=== PATIENT | female | born 1950 | race Hispanic/Latino ===

== ENCOUNTER 2022-03-19 12:33 | Emergency (ER) | payer OTHER ==
--- OUTSIDE RECORDS SUMMARY | 2022-03-19 12:37 | XMS REPORT | Continuity of Care Document ---
:1950 Author Organization [facility] t Address [facility] Macdonald [address] [place] [id number] Care Team Providers Name Role Phone Delphine Messer Attending Clinician Unavailable Payers Payer Name Policy Type Policy Number Effective Date Expiration Date Abner SHERMAN MEDICARE 53 [id number] 2020 [facility] 00:00:00 [facility] MEDICARE MB [id number] 2014 [facility] NOVITAS 00:00:00 [facility] Problems Condition Condition Condition Status Onset Resolution Last Treating Co mments Source Name Details Category Date Date Treatment Clinician Date [id number] Hyperlipid Problem Co mmon emia, Spirit mixed - [facility] [id number] Anxiety Problem [facility] - [facility] Gastroesop Gastroesop Problem C ommon hageal hageal Spirit reflux reflux - [facility] disease disease [facility] without [facility] esophagiti esophagiti Ar dical [facility] Hyperlipid Hyperlipid Problem C ommon emia emia due Spirit to dietary - [facility] fat intake [facility] [id number] Osteoarthr Problem Co mmon itis of [facility] multiple - [facility] joints, [facility] Medical osteoarthr Center itis type Shoulder Pain in Problem Common joint pain right Spirit shoulder - [facility] Allergic Allergic Problem Commo n rhinitis rhinitis [facility] Candidiasi Candidiasi Problem C ommon s of skin s of skin Spir [facility] [id number] Hyperlipid Problem Co mmon emia due Spirit to dietary [facility] fat intake [facility] Hypothyroi Hypothyroi Problem C ommon dism dism [facility] Essential Benign Problem Common hypertensi essential Spi rit on HTN [facility] Prediabete Prediabete Problem C ommon s s [facility] [id number] Other Problem Common chronic [facility] pain [facility] [id number] Chronic Problem Common fatigue [facility] [id number] History of Problem Co mmon cervical [facility] cancer [facility] Allergies, Adverse Reactions, Alerts This patient has no known allergies or adverse reactions. Social History Social Habit Start Date Stop Date Quantity Comments Source History of Tobacco Use Co mmon [facility] Sex Assigned At Com mon [facility] Smoking Status Start Date Stop Date Source Never Smoker [facility] Medications Ordered Filled Start Stop Current Ordering Indication Dosage Frequency Signature Comments Components Source Medication Medication Date Date Medication? Clinician (SIG) Name Name busPIRone busPIRone No 1{table busPIRone HCl 10 MG HCl 10 MG 6-06 t} HCl 10 MG 00:00: 00 Pravastatin Pravastatin 2020-05 No 1{table QD Pravastati Sodium 20 Sodium 20 1-22 t} n Sodium MG MG 00:00: 20 MG 00 Pravastatin Pravastatin 2020-05 No 1{table QD Pravastati Sodium 20 Sodium 20 1-22 t} n Sodium MG MG 00:00: 20 MG 00 Pravastatin Pravastatin 2020-05 No 1{table QD Pravastati Sodium 20 Sodium 20 1-22 t} n Sodium MG MG 00:00: 20 MG 00 Pravastatin Pravastatin 2020-05 No 1{table QD Pravastati Sodium 20 Sodium 20 1-22 t} n Sodium MG MG 00:00: 20 MG 00 Pravastatin Pravastatin 2020-05 No 1{table QD Pravastati Sodium 20 Sodium 20 1-22 t} n Sodium MG MG 00:00: 20 MG 00 Pravastatin Pravastatin 2020-05 No 1{table QD Pravastati Sodium 20 Sodium 20 -22 t} n Sodium MG MG 00:00: 20 MG 00 Pravastatin Pravastatin 2020- No 1{table QD Pravastati Sodium 20 Sodium 20 -22 t} n Sodium MG MG 00:00: 20 MG 00 Bupivicaine Bupivicaine 0 No 2.5mg [facility] 00:00: - [facility] 00 [facility] Kenalog Kenalog 0 No 40mg Common (Triamcinol (Triamcinol 2-25 S pirit one) one) 00:00: - [facility] 00 [facility] Bupivicaine Bupivicaine 2020-0 No 2.5mg [facility] 00:00: - [facility] 00 [facility] Kenalog Kenalog 0 No 40mg Common (Triamcinol (Triamcinol 2-25 S pirit one) one) 00:00: - [facility]I 00 [facility] Bupivicaine Bupivicaine 2020-0 No 2.5mg [facility]25 Spirit 00:00: - [facility] 00 [facility] Kenalog Kenalog 0 No 40mg Common (Triamcinol (Triamcinol 2-25 S pirit one) one) 00:00: - [facility]I 00 [facility] Bupivicaine Bupivicaine 2020-0 No 2.5mg [facility]25 Spirit 00:00: - [facility] 00 [facility] Kenalog Kenalog 0 No 40mg Common (Triamcinol (Triamcinol 2-25 S pirit one) one) 00:00: - [facility] 00 [facility] Bupivicaine Bupivicaine 2020-0 No 2.5mg [facility]25 Spirit 00:00: - [facility] 00 [facility] Kenalog Kenalog 0 No 40mg Common (Triamcinol (Triamcinol 2-25 S pirit one) one) 00:00: - [facility] 00 [facility] Omeprazole Omeprazole 2019-0 Yes Na Messer 1 capsule Common 3-06 Spirit 00:00: - [facility] 00 [facility] Famotidine Famotidine 2020-0 Yes Na Messer 1 tablet Common 06-22 as needed Spirit 00:00: - [facility] Famotidine Famotidine 2020-0 No 1{table BID Famotidine 40 MG 40 MG -23 t_as_ne 40 MG 00:00: eded} 00 Famotidine Famotidine 2020-0 No 1{table BID Famotidine 40 MG 40 MG -23 t_as_ne 40 MG 00:00: eded} 00 Famotidine Famotidine 2020-0 No 1{table BID Famotidine 40 MG 40 MG -23 t_as_ne 40 MG 00:00: eded} 00 Famotidine Famotidine 2020-0 No 1{table BID Famotidine 40 MG 40 MG - t_as_ne 40 MG 00:00: eded} 00 Famotidine Famotidine 2020-0 No 1{table BID Famotidine 40 MG 40 MG -23 t_as_ne 40 MG 00:00: eded} 00 Famotidine Famotidine 2020-0 No 1{table BID Famotidine 40 MG 40 MG -23 t_as_ne 40 MG 00:00: eded} 00 Famotidine Famotidine 2020-0 No 1{table BID Famotidine 40 MG 40 MG -23 t_as_ne 40 MG 00:00: eded} 00 [place] Kenalog 2018-1 No 40mg Common (Triamcinol (Triamcinol 1-12 S pirit one) one) 00:00: - [facility] Kenalog Kenalog 2018-1 No 40mg Common (Triamcinol (Triamcinol 1-12 S pirit one) one) 00:00: - [facility] Kenalog Kenalog 2018-1 No 40mg Common (Triamcinol (Triamcinol 1-12 S pirit one) one) 00:00: - [facility] Kenalog Kenalog 2018-1 No 40mg Common (Triamcinol (Triamcinol 1-12 S pirit one) one) 00:00: - [facility] Kenalog Kenalog 2018-1 No 40mg Common (Triamcinol (Triamcinol 1-12 S pirit one) one) 00:00: - [facility] 00 [facility] Lisinopril Lisinopril Yes Na Messer 1 tablet Common [facility] Flonase Flonase Yes Na Messer 1 spray in Common each [facility] nostril [facility] Zyrtec Zyrtec Yes Na Messer 1 tablet Comm on Allergy Allergy [facility] Naproxen Naproxen Yes Na Messer TAKE 1 Co mmon TABLET BY [facility] EVERY [address] [facility] NEEDED Medical WITH FOOD Center OR MILK Levothyroxi Levothyroxi Yes Na Messer 1 tablet Common ne Sodium ne Sodium on an Spir it empty - [facility]I stomach in [facility] Verapamil Verapamil Yes Na Messer 1 tablet Common HCl ER HCl ER [facility] Carvedilol Carvedilol Yes Na Messer 1 tablet Common with food [facility] Omeprazole Omeprazole No 1{capsu QD Omeprazole 40 MG 40 MG le} 40 MG Naproxen Naproxen No BID Naproxen 500 MG 500 MG 500 MG Verapamil Verapamil No 1{table Verapamil HCl ER 120 HCl ER 120 t} HCl ER 120 MG MG MG Levothyroxi Levothyroxi No QD Levothyrox ne Sodium ne Sodium ine Sodium 100 MCG 100 MCG 100 MCG Lisinopril Lisinopril No Lisinopril 40 MG 40 MG 40 MG Carvedilol Carvedilol No 1{table BID Carvedilol 12.5 MG 12.5 MG t_with_ 12.5 MG food} Verapamil Verapamil No 1{table Verapamil HCl ER 120 HCl ER 120 t} HCl ER 120 MG MG MG EQ Allergy EQ Allergy No EQ Allergy Relief Relief Relief (Cetirizine (Cetirizine (Cetirizin ) 10 MG ) 10 MG e) 10 MG Carvedilol Carvedilol No Carvedilol 12.5 MG 12.5 MG 12.5 MG ZyrTEC ZyrTEC No 1{table QD ZyrTEC Allergy 10 Allergy 10 t} Allergy 10 MG MG MG Levothyroxi Levothyroxi No QD Levothyrox ne Sodium ne Sodium ine Sodium 100 MCG 100 MCG 100 MCG Rosuvastati Rosuvastati No 1{table Rosuvastat n Calcium 5 n Calcium 5 t} in Calcium MG MG 5 MG Omeprazole Omeprazole No Omeprazole 40 MG 40 MG 40 MG Euthyrox Euthyrox No Euthyrox 100 MCG 100 MCG 100 MCG Lisinopril Lisinopril No 1{table QD Lisinopril 40 MG 40 MG t} 40 MG EC-Naproxen EC-Naproxen No EC-Naproxe 500 MG 500 MG n 500 MG Flonase 50 Flonase 50 No 2{spray QD Flonase 50 MCG/ACT MCG/ACT _in_eac MCG/ACT h_nostr il} Naproxen Naproxen No BID Naproxen 500 MG 500 MG 500 MG Cetirizine Cetirizine No Cetirizine HCl HCl HCl EC-Naproxen EC-Naproxen No EC-Naproxe 500 MG 500 MG n 500 MG Carvedilol Carvedilol No 1{table BID Carvedilol 12.5 MG 12.5 MG t_with_ 12.5 MG food} Omeprazole Omeprazole No Omeprazole 40 MG 40 MG 40 MG Verapamil Verapamil No 1{table Verapamil HCl ER 120 HCl ER 120 t} HCl ER 120 MG MG MG Flonase 50 Flonase 50 No 2{spray QD Flonase 50 MCG/ACT MCG/ACT _in_eac MCG/ACT h_nostr il} Carvedilol Carvedilol No Carvedilol 12.5 MG 12.5 MG 12.5 MG Levothyroxi Levothyroxi No QD Levothyrox ne Sodium ne Sodium ine Sodium 100 MCG 100 MCG 100 MCG Rosuvastati Rosuvastati No 1{table Rosuvastat n Calcium 5 n Calcium 5 t} in Calcium MG MG 5 MG Naproxen Naproxen No BID Naproxen 500 MG 500 MG 500 MG Lisinopril Lisinopril No Lisinopril 40 MG 40 MG 40 MG Cetirizine Cetirizine No 1{table Cetirizine HCl 10 MG HCl 10 MG t} HCl 10 MG Euthyrox Euthyrox No Euthyrox 100 MCG 100 MCG 100 MCG ZyrTEC ZyrTEC No 1{table QD ZyrTEC Allergy 10 Allergy 10 t} Allergy 10 MG MG MG Lisinopril Lisinopril No 1{table QD Lisinopril 40 MG 40 MG t} 40 MG EQ Allergy EQ Allergy No EQ Allergy Relief Relief Relief (Cetirizine (Cetirizine (Cetirizin ) 10 MG ) 10 MG e) 10 MG Lisinopril Lisinopril No 1{table QD Lisinopril 40 MG 40 MG t} 40 MG Carvedilol Carvedilol No 1{table BID Carvedilol 12.5 MG 12.5 MG t_with_ 12.5 MG food} Flonase 50 Flonase 50 No 2{spray QD Flonase 50 MCG/ACT MCG/ACT _in_eac MCG/ACT h_nostr il} Carvedilol Carvedilol No Carvedilol 12.5 MG 12.5 MG 12.5 MG Verapamil Verapamil No 1{table Verapamil HCl ER 120 HCl ER 120 t} HCl ER 120 MG MG MG ZyrTEC ZyrTEC No 1{table QD ZyrTEC Allergy 10 Allergy 10 t} Allergy 10 MG MG MG Levothyroxi Levothyroxi No QD Levothyrox ne Sodium ne Sodium ine Sodium 100 MCG 100 MCG 100 MCG Rosuvastati Rosuvastati No 1{table Rosuvastat n Calcium 5 n Calcium 5 t} in Calcium MG MG 5 MG Omeprazole Omeprazole No Omeprazole 40 MG 40 MG 40 MG Lisinopril Lisinopril No Lisinopril 40 MG 40 MG 40 MG Cetirizine Cetirizine No 1{table Cetirizine HCl 10 MG HCl 10 MG t} HCl 10 MG Euthyrox Euthyrox No Euthyrox 100 MCG 100 MCG 100 MCG EC-Naproxen EC-Naproxen No EC-Naproxe 500 MG 500 MG n 500 MG Naproxen Naproxen No BID Naproxen 500 MG 500 MG 500 MG EQ Allergy EQ Allergy No EQ Allergy Relief Relief Relief (Cetirizine (Cetirizine (Cetirizin ) 10 MG ) 10 MG e) 10 MG Carvedilol Carvedilol No Carvedilol 12.5 MG 12.5 MG 12.5 MG Pravastatin Pravastatin No 1{table QD Pravastati Sodium 40 Sodium 40 t} n Sodium MG MG 40 MG EC-Naproxen EC-Naproxen No EC-Naproxe 500 MG 500 MG n 500 MG Lisinopril Lisinopril No 1{table QD Lisinopril 40 MG 40 MG t} 40 MG Euthyrox Euthyrox No Euthyrox 100 MCG 100 MCG 100 MCG Flonase 50 Flonase 50 No 2{spray QD Flonase 50 MCG/ACT MCG/ACT _in_eac MCG/ACT h_nostr il} Naproxen Naproxen No BID Naproxen 500 MG 500 MG 500 MG ZyrTEC ZyrTEC No 1{table QD ZyrTEC Allergy 10 Allergy 10 t} Allergy 10 MG MG MG Carvedilol Carvedilol No 1{table BID Carvedilol 12.5 MG 12.5 MG t_with_ 12.5 MG food} Lisinopril Lisinopril No Lisinopril 40 MG 40 MG 40 MG Levothyroxi Levothyroxi No QD Levothyrox ne Sodium ne Sodium ine Sodium 100 MCG 100 MCG 100 MCG Omeprazole Omeprazole No Omeprazole 40 MG 40 MG 40 MG EQ Allergy EQ Allergy No EQ Allergy Relief Relief Relief (Cetirizine (Cetirizine (Cetirizin ) 10 MG ) 10 MG e) 10 MG Verapamil Verapamil No 1{table Verapamil HCl ER 120 HCl ER 120 t} HCl ER 120 MG MG MG Cetirizine Cetirizine No 1{table Cetirizine HCl 10 MG HCl 10 MG t} HCl 10 MG Carvedilol Carvedilol No Carvedilol 12.5 MG 12.5 MG 12.5 MG Carvedilol Carvedilol No 1{table BID Carvedilol 12.5 MG 12.5 MG t_with_ 12.5 MG food} Cetirizine Cetirizine No 1{table Cetirizine HCl 10 MG HCl 10 MG t} HCl 10 MG Flonase 50 Flonase 50 No 2{spray QD Flonase 50 MCG/ACT MCG/ACT _in_eac MCG/ACT h_nostr il} Verapamil Verapamil No 1{table Verapamil HCl ER 120 HCl ER 120 t} HCl ER 120 MG MG MG EC-Naproxen EC-Naproxen No EC-Naproxe 500 MG 500 MG n 500 MG Pravastatin Pravastatin No 1{table QD Pravastati Sodium 40 Sodium 40 t} n Sodium MG MG 40 MG Lisinopril Lisinopril No 1{table QD Lisinopril 40 MG 40 MG t} 40 MG Verapamil Verapamil No Verapamil HCl ER 120 HCl ER 120 HCl ER 120 MG MG MG EQ Allergy EQ Allergy No EQ Allergy Relief Relief Relief (Cetirizine (Cetirizine (Cetirizin ) 10 MG ) 10 MG e) 10 MG busPIRone busPIRone No 1{table busPIRone HCl 10 MG HCl 10 MG t} HCl 10 MG Lisinopril Lisinopril No Lisinopril 40 MG 40 MG 40 MG Levothyroxi Levothyroxi No QD Levothyrox ne Sodium ne Sodium ine Sodium 100 MCG 100 MCG 100 MCG ZyrTEC ZyrTEC No 1{table QD ZyrTEC Allergy 10 Allergy 10 t} Allergy 10 MG MG MG Omeprazole Omeprazole No Omeprazole 40 MG 40 MG 40 MG Euthyrox Euthyrox No Euthyrox 100 MCG 100 MCG 100 MCG Naproxen Naproxen No BID Naproxen 500 MG 500 MG 500 MG Carvedilol Carvedilol No Carvedilol 12.5 MG 12.5 MG 12.5 MG Carvedilol Carvedilol No 1{table BID Carvedilol 12.5 MG 12.5 MG t_with_ 12.5 MG food} Cetirizine Cetirizine No 1{table Cetirizine HCl 10 MG HCl 10 MG t} HCl 10 MG Flonase 50 Flonase 50 No 2{spray QD Flonase 50 MCG/ACT MCG/ACT _in_eac MCG/ACT h_nostr il} Verapamil Verapamil No 1{table Verapamil HCl ER 120 HCl ER 120 t} HCl ER 120 MG MG MG EC-Naproxen EC-Naproxen No EC-Naproxe 500 MG 500 MG n 500 MG Pravastatin Pravastatin No 1{table QD Pravastati Sodium 40 Sodium 40 t} n Sodium MG MG 40 MG Lisinopril Lisinopril No 1{table QD Lisinopril 40 MG 40 MG t} 40 MG Verapamil Verapamil No Verapamil HCl ER 120 HCl ER 120 HCl ER 120 MG MG MG EQ Allergy EQ Allergy No EQ Allergy Relief Relief Relief (Cetirizine (Cetirizine (Cetirizin ) 10 MG ) 10 MG e) 10 MG busPIRone busPIRone No 1{table busPIRone HCl 10 MG HCl 10 MG t} HCl 10 MG Lisinopril Lisinopril No Lisinopril 40 MG 40 MG 40 MG Levothyroxi Levothyroxi No QD Levothyrox ne Sodium ne Sodium ine Sodium 100 MCG 100 MCG 100 MCG ZyrTEC ZyrTEC No 1{table QD ZyrTEC Allergy 10 Allergy 10 t} Allergy 10 MG MG MG Omeprazole Omeprazole No Omeprazole 40 MG 40 MG 40 MG Euthyrox Euthyrox No Euthyrox 100 MCG 100 MCG 100 MCG Naproxen Naproxen No BID Naproxen 500 MG 500 MG 500 MG Flonase 50 Flonase 50 No 2{spray QD Flonase 50 MCG/ACT MCG/ACT _in_eac MCG/ACT h_nostr il} ZyrTEC ZyrTEC No 1{table QD ZyrTEC Allergy 10 Allergy 10 t} Allergy 10 MG MG MG Carvedilol Carvedilol No Carvedilol 12.5 MG 12.5 MG 12.5 MG Carvedilol Carvedilol No 1{table BID Carvedilol 12.5 MG 12.5 MG t_with_ 12.5 MG food} Cetirizine Cetirizine No Cetirizine HCl HCl HCl Lisinopril Lisinopril No Lisinopril 40 MG 40 MG 40 MG EC-Naproxen EC-Naproxen No EC-Naproxe 500 MG 500 MG n 500 MG Immunizations Ordered Immunization Filled Immunization Date Status Commen ts Source Name Name Prevnar 13 Prevnar 13 2017-07-27 Completed [facility] -[facility] Vaccine -Pneumonia Vaccine 12:43:00 - [facility] Prevnar 13 Prevnar 13 2017-07-27 Completed [facility] -Pneumonia Vaccine -Pneumonia Vaccine 12:43:00 - [facility] Prevnar 13 Prevnar 13 2017-07-27 Completed [facility] -Pneumonia Vaccine -Pneumonia Vaccine 12:43:00 - [facility] Prevnar 13 Prevnar 13 2017-07-27 Completed [facility] -Pneumonia Vaccine -Pneumonia Vaccine 12:43:00 - [facility] Prevnar 13 Prevnar 13 2017-07-27 Completed [facility] -Pneumonia Vaccine -Pneumonia Vaccine 12:43:00 - [facility] Prevnar 13 Prevnar 13 2017-07-27 Completed [facility] -Pneumonia Vaccine -Pneumonia Vaccine 12:43:00 - [facility] Prevnar 13 Prevnar 13 2017-07-27 Completed [facility] -Pneumonia Vaccine -Pneumonia Vaccine 12:43:00 [facility] Procedures This patient has no known procedures. Encounters Start End Encounter Admission Attending Care Care Encounter Source Date/Time Date/Time Type Type Clinicians Facility Department ID 2021-10-30 Outpatient Messer, Na STLMLC STLMLC [id number] 2 Common 15:29:00 [facility] 2021-06-25 Outpatient Messer, Na STLMLC STLMLC [id number] 2 Common 14:39:16 [facility] 2021-06-25 Outpatient Messer, Na STLMLC STLMLC [id number] 2 Common 13:26:23 [id number] [facility] 2021-06-25 Outpatient Messer, Na STLMLC STLMLC [id number] 2 Common 12:46:19 [id number] [facility] 2021-06-25 Outpatient Messer, Na STLMLC STLMLC [id number] 2 Common 12:45:14 [id number] [facility] 2021-06-25 Outpatient Messer, Na STLMLC STLMLC [id number] 2 Common 12:44:48 [id number] [facility] 2021-06-25 Outpatient Messer, Na STLMLC STLMLC [id number] 2 Common 12:42:24 [id number] [facility] 2021-06-25 Outpatient Messer, Na STLMLC STLMLC [id number] 2 Common 12:33:38 [id number] [facility] 2021-06-25 Outpatient Messer, Na STLMLC STLMLC [id number] 2 Common 12:32:40 [id number] [facility] 2021-06-25 Outpatient Messer, Na STLMLC STLMLC [id number] 2 Common 12:32:07 [id number] [facility] 2021-06-25 Outpatient Messer, Na STLMLC STLMLC [id number] 2 Common 12:25:42 [id number] [facility] 2021-06-25 Outpatient Messer, Na STLMLC STLMLC [id number] 2 Common 12:11:27 [id number] [facility] 2021-06-25 Outpatient Messer, Na STLMLC STLMLC [id number] 2 Common 11:50:19 [id number] [facility] 2021-06-25 Outpatient Messer, Na STLMLC STLMLC [id number] 2 Common 11:49:34 [id number] [facility] 2021-06-25 Outpatient Messer, Na STLMLC STLMLC [id number] 2 Common 11:49:06 [id number] [facility] 2021-06-25 Outpatient Messer, Na STLMLC STLMLC [id number] 2 Common 11:12:13 [id number] [facility] 2021-06-25 Outpatient Messer, Na STLMLC STLMLC [id number] 2 Common 11:02:24 [id number] [facility] 2021-06-25 Outpatient Messer, Na STLMLC STLMLC [id number] 2 Common 11:01:59 [id number] [facility] 2022-02-05 2022-02-05 OL DIG E/M STLMLC STLMLC [id number] Common 00:00:00 00:00:00 [facility] 11-20 Spir it [facility] 2021-11-03 2021-11-03 OL DIG E/M STLMLC STLMLC [id number] Common 00:00:00 00:00:00 [facility] [place] 11-20 Spir it [facility] 2021-10-13 2021-10-13 (TEL) STLMLC STLMLC [id number] Co mmon 00:00:00 00:00:00 [facility] 2021-09-30 2021-09-30 (TEL) STLMLC STLMLC [id number] Co mmon 00:00:00 00:00:00 [facility] 2021-07-16 2021-07-16 (TEL) STLMLC STLMLC [id number] Co mmon 00:00:00 00:00:00 [facility] 2021-04-21 2021-04-21 (TEL) STLMLC STLMLC [id number] Co mmon 00:00:00 00:00:00 [facility] 2020-12-18 2020-12-18 Outpatient STLMLC STLMLC [id number] Common 00:00:00 00:00:00 [facility] 2020-12-05 2020-12-05 Outpatient STLMLC STLMLC [id number] Common 00:00:00 00:00:00 [facility] 2020-08-26 2020-08-26 Outpatient STLMLC STLMLC [id number] Common 00:00:00 00:00:00 [facility] 2020-07-25 2020-07-25 Outpatient STLMLC STLMLC [id number] Common 00:00:00 00:00:00 [facility] 2020-07-19 2020-07-19 Outpatient STLMLC STLMLC [id number] Common 00:00:00 00:00:00 [facility] 2020-06-25 2020-06-25 Outpatient STLMLC STLMLC [id number] Common 00:00:00 00:00:00 [facility] 2020-02-28 2020-02-28 Outpatient STLMLC STLMLC [id number] Common 00:00:00 00:00:00 [facility] 2020-02-27 2020-02-27 Outpatient STLMLC STLMLC [id number] Common 00:00:00 00:00:00 [facility] 2019-11-06 2019-11-06 [id number] Common 08:40:00 08:40:[address] [facility] 2019-08-04 2019-08-04 [facility] [id number] Common 10:00:00 10:00:[address] [facility] 2019-08-04 2019-08-04 [facility] [id number] Common 09:00:00 09:00:[address] [facility] 2019-06-23 2019-06-23 [facility] [id number] Common 10:59:00 10:59:[address] [facility] 2019-06-22 2019-06-22 [facility] [id number] Common 13:20:00 13:20:[address] [facility] 2018-12-19 2018-12-19 [facility] [id number] Common 08:03:00 08:03:[address] [facility] 2018-12-05 2018-12-05 [facility] [id number] Common 08:00:00 08:00:[address] [facility] 2018-08-10 2018-08-10 [facility] [id number] Common 10:15:00 10:15:[address] [facility] 2018-04-11 2018-04-11 [facility] [id number] Common 11:00:00 11:00:[address] [facility] 2017-10-26 2017-10-26 [facility] [id number] Common 09:15:00 09:15:[address] [facility] Results This patient has no known results.
[2022-03-19] MEDS ORDERED: KETOROLAC 30 MG/ML INJ ONE (13:07)
--- NOTE | 2022-03-19 13:43 | RAD REPORT ---
EXAM DESCRIPTION: Geraldine Single View03/19/2022 1:31 pm CLINICAL HISTORY: Cough COMPARISON: none FINDINGS: The lungs appear clear of acute infiltrate. The heart is normal size IMPRESSION: No acute abnormalities displayed
--- NOTE | 2022-03-19 13:47 | RAD REPORT ---
EXAM DESCRIPTION: CT - Head Brain Wo Cont - 03/19/2022 1:19 pm CLINICAL HISTORY: Headache COMPARISON: None. TECHNIQUE: Computed axial tomography of the head was obtained. IV contrast was not requested. All CT scans are performed using dose optimization technique as appropriate and may include automated exposure control or mA/KV adjustment according to patient size. FINDINGS: An intracranial bleed is not seen . The ventricles are normal in caliber. No significant hypodense areas within the brain visualized No extra-axial fluid collection is noted. Fluid within the sinuses/ mastoids is not seen. IMPRESSION: No acute intracranial abnormality is seen. If patient's symptoms persist MRI of the bra in would be recommended.
[2022-03-19 14:20] LABS: Absolute Lymphocytes (CBC) 3.4 K/uL (0.7-4.9); Hematocrit 41.5 % (36.0-45.0); Lymphocytes % 35.2 % (15.3-44.8); MCV 89.2 fL (80-100); MPV 7.9 fL (7.6-11.3); RBC Red Blood Cell Count 4.65 M/uL (3.86-4.86)
[2022-03-19 15:09] LABS: Potassium 4.1 mmol/L (3.5-5.1)
[2022-03-19 15:11] LABS: SARS-CoV-2 Antigen Rapid Res Negative (Negative)
--- NOTE | 2022-03-19 15:16 | ER ---
Nurse's Notes [facility] Name: Ismael Weinberg Age: 71 yrs Sex: Female : 1950 Arrival Date: 03/19/2022 Time: 12:41 Bed 11 Private MD: Delphine Messer Diagnosis: Acute upper respiratory infection, unspecified Presentation: 03/19 12:44 Chief complaint: Left sided headache + photosensitivity x 3 hours, cough, congestion, hb and runny nose x 5 days. Coronavirus screen: Client presents with at least one sign or symptom that may indicate coronavirus-19. Standard/surgical mask placed on the client. Provider contacted for isolation considerations. Ebola Screen: No symptoms or risks identified at this time. Risk Assessment: Do you want to hurt yourself or someone else? Patient reports no desire to harm self or others. Onset of symptoms was March 19, 2022. 12:44 Method Of Arrival: Ambulatory hb 12:44 Acuity: JEROME 3 hb 15:51 Initial Sepsis Screen: Does the patient meet any 2 criteria? No. Patient's initial eh3 sepsis screen is negative. Does the patient have a suspected source of infection? No. Patient's initial sepsis screen is negative. Triage Assessment: 15:51 General: Appears. Pain: Also complains of no other associated symptoms. eh3 15:51 Headache History: The patient has had previous headaches and this one is similar to eh3 previous episodes. Historical: - Allergies: 12:47 No Known Allergies; hb - PMHx: 12:47 Hypertension; hb - Immunization history:: Adult Immunizations up to date. - Social history:: Smoking status: Patient denies any tobacco usage or history of. Screenin:57 Abuse screen: Denies threats or abuse. Denies injuries from another. Nutritional eh3 screening: No deficits noted. Tuberculosis screening: No symptoms or risk factors identified. Fall Risk None identified. Assessment: 12:57 General: Appears in no apparent distress. uncomfortable, Behavior is calm, cooperative, eh3 appropriate for age. Pain: Complains of pain in left yazidi, left frontal area and left side of the back of head Pain does not radiate. Pain currently is 7 out of 10 on a pain scale. Quality of pain is described as burning, sharp, Pain began 2-3 days ago. Is intermittent, Alleviated by nothing. Neuro: Level of Consciousness is awake, alert, obeys commands, Oriented to person, place, time, situation. Cardiovascular: Capillary refill < 3 seconds Patient's skin is warm and dry. Respiratory: Reports cough that is non-productive, pain with cough Airway is patent Respiratory effort is even, unlabored. GI:. EENT: Reports nasal discharge photophobia. 14:00 Reassessment: Patient and/or family updated on plan of care and expected duration. Pain eh3 level reassessed. Patient is alert, oriented x 3, equal unlabored respirations, skin warm/dry/pink. 15:00 Reassessment: Patient and/or family updated on plan of care and expected duration. Pain eh3 level reassessed. Patient is alert, oriented x 3, equal unlabored respirations, skin warm/dry/pink. Vital Signs: 12:44 BP 166 / 94; Pulse 72; Resp 16; Temp 97.1; Pulse Ox 100% on R/A; Weight 86.18 kg; hb Height 5 ft. 6 in. (167.64 cm); Pain 8/10; 12:57 BP 172 / 70; Pulse 71; Resp 16; Temp 97.1(O); Pulse Ox 96% on R/A; eh3 14:00 BP 138 / 64; Pulse 61; Resp 16; Pulse Ox 95% on R/A; eh3 15:00 BP 153 / 79; Pulse 81; Resp 16; Pulse Ox 100% on R/A; eh3 12:44 Body Mass Index 30.67 (86.18 kg, 167.64 cm) NIH Stroke Scale Scores: 12:45 NIHSS Score: [address] [facility] ED Course: 12:41 Patient arrived in ED. am2 12:41 Delphine Messer MD is Private Physician. am2 12:46 Triage completed. hb 12:47 Arm band placed on. hb 12:48 Daysi Kaplan FNP is [facility] 7 12:48 Robbie Jimenez MD is Attending Physician. [facility] 12:50 Melania Flowers, GARRISON is Primary Nurse. eh3 12:57 Patient has correct armband on for positive identification. Bed in low position. Call 3 light in reach. Side rails up X2. Client placed on continuous cardiac and pulse oximetry monitoring. NIBP monitoring applied. Door closed. Noise minimized. Warm blanket given. 13:21 Head Brain Wo Cont In Process Unspecified. EDMS 13:33 XRAY Chest (1 view) In Process Unspecified. EDMS 14:02 SARS RAPID Sent. eh3 14:02 Flu Sent. eh3 15:14 Delphine Messer MD is Referral Physician. [facility] 15:50 No provider procedures requiring assistance completed. IV discontinued, intact, 3 bleeding controlled, No redness/swelling at site. Pressure dressing applied. Administered Medications: 14:02 Drug: Ketorolac 15 mg Route: IVP; Site: left antecubital; 3 15:50 Follow up: Response: Pain is decreased 3 Medication: 15:51 VIS not applicable for this client. 3 Outcome: 15:15 Discharge ordered by . [facility] 15:50 Discharged to home ambulatory, with family. 3 15:50 Condition: stable 15:50 Discharge instructions given to patient, family, Instructed on discharge instructions, follow up and referral plans. medication usage, Demonstrated understanding of instructions, follow-up care, medications, Prescriptions given X 1. 15:52 Patient left the ED. 3 NIH Stroke Scale - NIH Stroke Score Date: 03/19/2022 Time: 12:45 Total Score = 0 1a. Level of Consciousness (LOC) - 0(Alert) 1b. Level of Consciousness (LOC) (Month \T\ Age) - 0(Both) 1c. LOC Commands (Open \T\ Closes Eyes/Clamshell Operator) - 0(Both) 2. Best Gaze (Lateral Gaze Paresis) - 0(Normal) 3. Visual Field Loss - 0(No visual loss) 4. Facial Palsy - 0(Normal) 5a. Left Arm: Motor (10-second hold) - 0(No drift) 5b. Right Arm: Motor (10-second hold) - 0(No drift) 6a. Left Leg: Motor (5-second hold - always test supine) - 0(No drift) 6b. Right Leg: Motor (5-second hold - always test supine) - 0(No drift) 7. Limb Ataxia (finger/nose \T\ heel/krishnamurthy - test with eyes open) - 0(Absent) 8. Sensory Loss (pinprick arms/legs/face) - 0(Normal) 9. Best Language: Aphasia (description/naming/reading) - 0(No aphasia) 10. Dysarthria (speech clarity - read or repeat words) - 0(Normal) 11. Extinction and Inattention (visual/tactile/auditory/spatial/personal) - 0(No abnormality) Initials: jh7 Signatures: Dispatcher [employer] Shima Valle, RN RN Chelo Landeros am2 Melania Flowers, RN RN 3 Daysi Kaplan, SOAP PRESS FEEDER SOAP PRESS FEEDER 7
--- NOTE | 2022-03-19 15:16 | EDPHYS ---
Physician Documentation [facility] Name: Ismael Weinberg Age: 71 yrs Sex: Female : 1950 Arrival Date: 03/19/2022 Time: 12:41 Bed 11 Private MD: Delphine Messer ED Physician Robbie Jimenez HPI: 03/19 12:45 This 71 yrs old Female presents to ER via Ambulatory with complaints of jh7 Headache. 12:45 The patient complains of pain to the left side of the back of head and right side of jh7 the back of head. The patient describes the headache as aching, waxing and waning. Onset: The symptoms/episode began/occurred 1 month(s) ago. Patient reports that 1 month ago she tripped in a hole, and hit her head. Denies LOC. She reports intermittent headaches with mild photosensitivity today. Also reports that 4 days ago she developed a cough with congestion. Denies chest pain, shortness of breath, dizziness, weakness, or any other symptoms.. Historical: - Allergies: 12:47 No Known Allergies; hb - PMHx: 12:47 Hypertension; hb - Immunization history:: Adult Immunizations up to date. - Social history:: Smoking status: Patient denies any tobacco usage or history of. ROS: 12:45 Constitutional: Negative for fever, chills, and weight loss, Eyes: Negative for injury, jh7 pain, redness, and discharge, Neck: Negative for injury, pain, and swelling, Cardiovascular: Negative for chest pain, palpitations, and edema, Abdomen/GI: Negative for abdominal pain, nausea, vomiting, diarrhea, and constipation, Back: Negative for injury and pain, MS/Extremity: Negative for injury and deformity, Skin: Negative for injury, rash, and discoloration. 12:45 ENT: Positive for sinus congestion. 12:45 Respiratory: Positive for cough, Negative for shortness of breath, wheezing. 12:45 Neuro: Positive for headache, Negative for altered mental status, dizziness, loss of consciousness, numbness, syncope, tingling, weakness. 12:45 All other systems are negative. Exam: 12:45 Constitutional: This is a well developed, well nourished patient who is awake, alert, jh7 and in no acute distress. Head/Face: Normocephalic, atraumatic. Eyes: Pupils equal round and reactive to light, extra-ocular motions intact. Lids and lashes normal. Conjunctiva and sclera are non-icteric and not injected. Cornea within normal limits. Periorbital areas with no swelling, redness, or edema. Cardiovascular: Regular rate and rhythm with a normal S1 and S2. No gallops, murmurs, or rubs. Normal PMI, no JVD. No pulse deficits. Respiratory: Lungs have equal breath sounds bilaterally, clear to auscultation and percussion. No rales, rhonchi or wheezes noted. No increased work of breathing, no retractions or nasal flaring. Abdomen/GI: Soft, non-tender, with normal bowel sounds. No distension or tympany. No guarding or rebound. No evidence of tenderness throughout. Back: No spinal tenderness. No costovertebral tenderness. Full range of motion. Skin: Warm, dry with normal turgor. Normal color with no rashes, no lesions, and no evidence of cellulitis. MS/ Extremity: Pulses equal, no cyanosis. Neurovascular intact. Full, normal range of motion. Neuro: Awake and alert, GCS 15, oriented to person, place, time, and situation. Cranial nerves II-XII grossly intact. Motor strength 5/5 in all extremities. Sensory grossly intact. Cerebellar exam normal. Normal gait. 12:45 ENT: TM's: are normal, Posterior pharynx: post nasal drainage. 12:45 ENT: Nose: nasal drainage, that is clear. Vital Signs: 12:44 BP 166 / 94; Pulse 72; Resp 16; Temp 97.1; Pulse Ox 100% on R/A; Weight 86.18 kg; hb Height 5 ft. 6 in. (167.64 cm); Pain 8/10; 12:57 BP 172 / 70; Pulse 71; Resp 16; Temp 97.1(O); Pulse Ox 96% on R/A; eh3 14:00 BP 138 / 64; Pulse 61; Resp 16; Pulse Ox 95% on R/A; eh3 15:00 BP 153 / 79; Pulse 81; Resp 16; Pulse Ox 100% on R/A; eh3 12:44 Body Mass Index 30.67 (86.18 kg, 167.64 cm) hb NIH Stroke Scale Scores: 12:45 NIHSS Score: 0 [facility] MDM: 12:48 Patient medically screened. [facility] 15:19 Differential diagnosis: migraine, subdural hematoma, Upper respiratory infection, [facility] influenza, COVID. Data reviewed: vital signs, nurses notes, lab test result(s), EKG, radiologic studies, CT scan, plain films. Data interpreted: Pulse oximetry: is 95 %. Interpretation: normal. Counseling: I had a detailed discussion with the patient and/or guardian regarding: the historical points, exam findings, and any diagnostic results supporting the discharge/admit diagnosis, to return to the emergency department if symptoms worsen or persist or if there are any questions or concerns that arise at home. ED course: The patient remained hemodynamically stable throughout her ER visit. Her labs and imaging were reviewed with both the patient and her daughter. Advised for her to take Flonase [id number] and Mucinex. Prescribed Tessalon for the cough. If she develops any new concerning symptoms, she may return to the ER for further eval. The patient and daughter understood the plan of care.. 03/19 12:57 Order name: Basic Metabolic Panel; Complete Time: 15:11 [facility] 03/19 12:57 Order name: CBC with Diff; Complete Time: 14:27 [facility] 03/19 12:57 Order name: XRAY Chest (1 view); Complete Time: 14:08 [facility] 03/19 12:57 Order name: Flu; Complete Time: 15:13 [facility] 03/19 12:57 Order name: CT Head Brain wo Cont [facility] 03/19 12:58 Order name: SARS RAPID; Complete Time: 15:13 [facility] 03/19 12:57 Order name: Cardiac monitoring; Complete Time: 14:02 [facility] 03/19 12:57 Order name: EKG - Nurse/Tech; Complete Time: 14:02 [facility] 03/19 12:57 Order name: IV Saline Lock; Complete Time: 14:02 [facility] 03/19 12:57 Order name: Labs collected and sent; Complete Time: 14:02 [facility] 03/19 12:57 Order name: O2 Per Protocol; Complete Time: 13:02 [facility] 03/19 12:57 Order name: O2 Sat Monitoring; Complete Time: 13:02 [facility] 03/19 13:05 Order name: Head Brain Wo Cont; Complete Time: 14:08 [facility] 03/19 14:26 Order name: Labs - recollect needed: recollect green top; Complete Time: 14:38 ss EC:47 Rate is 65 beats/min. Rhythm is regular. QRS [place] is Normal. SC interval is normal at [facility] 108 msec. QRS interval is normal at 80 msec. QT interval is normal at 416 msec. No Q waves. T waves are Normal. No ST changes noted. Clinical impression: Sinus Rhythm with short SC. Administered Medications: 14:02 Drug: Ketorolac 15 mg Route: IVP; Site: left antecubital; eh3 15:50 Follow up: Response: Pain is decreased [facility] Disposition Summary: 03/19/22 15:15 Discharge Ordered Location: Home [facility] Problem: new [facility] Symptoms: have improved [facility] Condition: Stable [facility] Diagnosis - Acute upper respiratory infection, unspecified [facility] Followup: [facility] - With: Delphine Messer MD - When: 2 - 3 days - Reason: Recheck today's complaints Discharge Instructions: - Discharge Summary Sheet [facility] - Upper Respiratory Infection, Adult [facility] - Viral Respiratory Infection [facility] Forms: - Medication Reconciliation Form [facility] - Thank You Letter [facility] - Antibiotic Education [facility] Prescriptions: - Tessalon Perles 100 mg Oral Capsule - take 1 capsule by ORAL route every 8 hours As needed; 15 capsule; Refills: 0, [facility] Product Selection Permitted NIH Stroke Scale - NIH Stroke Score Date: 03/19/2022 Time: 12:45 Total Score = 0 1a. Level of Consciousness (LOC) - 0(Alert) 1b. Level of Consciousness (LOC) (Month \T\ Age) - 0(Both) 1c. LOC Commands (Open \T\ Closes Eyes/Curtain Supervisor) - 0(Both) 2. Best Gaze (Lateral Gaze Paresis) - 0(Normal) 3. Visual Field Loss - 0(No visual loss) 4. Facial Palsy - 0(Normal) 5a. Left Arm: Motor (10-second hold) - 0(No drift) 5b. Right Arm: Motor (10-second hold) - 0(No drift) 6a. Left Leg: Motor (5-second hold - always test supine) - 0(No drift) 6b. Right Leg: Motor (5-second hold - always test supine) - 0(No drift) 7. Limb Ataxia (finger/nose \T\ heel/krishnamurthy - test with eyes open) - 0(Absent) 8. Sensory Loss (pinprick arms/legs/face) - 0(Normal) 9. Best Language: Aphasia (description/naming/reading) - 0(No aphasia) 10. Dysarthria (speech clarity - read or repeat words) - 0(Normal) 11. Extinction and Inattention (visual/tactile/auditory/spatial/personal) - 0(No abnormality) Initials: jh7 Addendum: 03/24/2022 03:59 Co-signature as Attending Physician, Robbie Jimenez MD I agree with the [facility] assessment and plan of care. Signatures: Dispatcher [employer] EDRobbie Alcazar MD MD [facility] Stephanie Castillo RN RN Shima Rahman RN RN Melania Flowers RN RN [facility] Daysi Kaplan, MEAT COUNTER WORKER [place] [id number] Corrections: (The following items were deleted from the chart) 03/19 13:02 13:01 SARS-COV-2 Antigen Rapid+I.LAB.BRZ ordered. EDMS EDMS 14:26 14:26 Labs - recollect needed ordered. ss ss
[2022-03-19 15:59] VITALS: TEMP 97.1
[2022-03-19 16:03] VITALS: BP 153/79; O2SAT 100
--- NOTE | 2022-03-21 16:58 | EKG ---
Test Date: 2022-03-19 Test Time: 13:47:22 Public Service Director: OLY MEASUREMENT RESULTS: Intervals: Rate: 65 WI: 108 QRSD: 80 QT: 416 QTc: 432 [place]: P: 13 WI: 108 QRS: 62 T: 80 INTERPRETIVE STATEMENTS: Sinus rhythm with short [place] Low voltage QRS Borderline ECG No previous ECG available for comparison Electronically Signed On 03-21-22 16:54:28 CDT by Patrick Ford
== END 2022-03-19 15:52 | disposition home or self-care (01) ==
LOC: ER 12:33
DX: J06.9 Acute upper respiratory infection, unspecified (principal); R05.9 Cough, unspecified; I10 Essential (primary) hypertension; Z20.822 Contact with and (suspected) exposure to COVID-19
CPT/HCPCS: 36415; 70450; 71045; 80048; 85025; 87804; 87811; 93005; 96374; 99284

== ENCOUNTER → 2023-05-18 | Emergency (ER) | payer OTHER ==
[~2023-05-18] MED LIST: AZITHROMYCIN 250 MG TAB ONE; LEVALBUTEROL 1.25 MG/3 ML NEB ONE; OSELTAMIVIR 75 MG CAP PO ONE; predniSONE 20 MG TAB ONE
--- OUTSIDE RECORDS SUMMARY | 2023-05-18 12:33 | XMS REPORT | Continuity of Care Document ---
Author Name Unknown Address [address] [place] [address] [facility] Address [address] [place] [address] Care Team Providers Care Economic Adviser Name Role Phone Kenn Elvis Boaz Attending Clinician Unavailable Delphine ORTEGA Attending Clinician Unavailable [email or web address]_S Attending Clinician Unavaila ble [email or web address]_S Admitting Clinician Unavaila ble Payers Payer Name Policy Type Policy Number Effective Date Expirati on Date Source [employer] MEDICARE 53 [id number] 2020 00:00:00 [facility] MEDICARE NOVITAS [id number] 2014 00:00:00 [facility] Problems Condition Name Condition Details Condition Category Status Onset Date Resolution Date Last Treatment Date Treating Clinician Comments Source [id number] Hyperlipid emia, mixed Problem [facility] [id number] Anxiety Problem [facility] [id number] Body mass index [BMI] 31.0-31.9, adult Problem [facility] [id number] Other obesity due to excess calories Problem [facility] [id number] Insomnia, unspecifie d type Problem [facility] Gastroesop hageal reflux disease without esophagiti s Gastroesop hageal reflux disease without esophagiti s Problem [facility] Hyperlipid emia Hyperlipid emia due to dietary fat intake Problem [facility] [id number] Osteoarthr itis of multiple joints, unspecifie d osteoarthr itis type Problem [facility] Shoulder joint pain Pain in right shoulder Problem [facility] Allergic rhinitis Allergic rhinitis Problem [facility] Candidiasi s of skin Candidiasi s of skin Problem [facility] [id number] Hyperlipid emia due to dietary fat intake Problem [facility] Hypothyroi dism Hypothyroi dism Problem [facility] Essential hypertensi on Benign essential HTN Problem [facility] Prediabete s Prediabete s Problem [facility] [id number] Other chronic pain Problem [facility] [id number] Chronic fatigue Problem [facility] [id number] History of cervical cancer Problem [facility] Social History Social Habit Start Date Stop Date Quantity Comments Source History of Tobacco Use [facility] Sex Assigned At [facility] Smoking Status Start Date Stop Date Source Never Smoker [facility] Medications Ordered Medication Name Filled Medication Name Start Date Stop Date Current Medication? Ordering Clinician Indication Dosage Frequency Signature (SIG) Comments Components Source busPIRone HCl 10 MG busPIRone HCl 10 MG 6-06 00:00: 00 No 1{table t} busPIRone HCl 10 MG Pravastatin Sodium 20 MG Pravastatin Sodium 20 MG 2020-05 00:00: 00 No 1{table t} QD Pravastati n Sodium 20 MG Pravastatin Sodium 20 MG Pravastatin Sodium 20 MG 2020-05 00:00: 00 No 1{table t} QD Pravastati n Sodium 20 MG Pravastatin Sodium 20 MG Pravastatin Sodium 20 MG 2020-05 00:00: 00 No 1{table t} QD Pravastati n Sodium 20 MG Pravastatin Sodium 20 MG Pravastatin Sodium 20 MG 2020-05 00:00: 00 No 1{table t} QD Pravastati n Sodium 20 MG Pravastatin Sodium 20 MG Pravastatin Sodium 20 MG 2020-05 00:00: 00 No 1{table t} QD Pravastati n Sodium 20 MG Pravastatin Sodium 20 MG Pravastatin Sodium 20 MG 2020-05 00:00: 00 No 1{table t} QD Pravastati n Sodium 20 MG Pravastatin Sodium 20 MG Pravastatin Sodium 20 MG 2020-05 00:00: 00 No 1{table t} QD Pravastati n Sodium 20 MG Pravastatin Sodium 20 MG Pravastatin Sodium 20 MG 2020-05 00:00: 00 No 1{table t} QD Pravastati n Sodium 20 MG Pravastatin Sodium 20 MG Pravastatin Sodium 20 MG 2020-05 00:00: 00 No 1{table t} QD Pravastati n Sodium 20 MG Bupivicaine [place] Bupivicaine [place] 07-25 00:00: 00 No 2[facility]5mg [facility] Kenalog (Triamcinol one) Kenalog (Triamcinol one) 07-25 00:00: 00 No 40mg [facility] Bupivicaine [place] Bupivicaine [place] 07-25 00:00: 00 No 2.5mg [facility] Kenalog (Triamcinol one) Kenalog (Triamcinol one) 07-25 00:00: 00 No 40mg [facility] Bupivicaine [place] Bupivicaine [place] 07-25 00:00: 00 No 2.5mg [facility] Kenalog (Triamcinol one) Kenalog (Triamcinol one) 07-25 00:00: 00 No 40mg [facility] Bupivicaine [place] Bupivicaine [place] 07-25 00:00: 00 No 2.5mg [facility] Kenalog (Triamcinol one) Kenalog (Triamcinol one) 0 07-25 00:00: 00 No 40mg [facility] Bupivicaine [place] Bupivicaine [place] 0 07-25 00:00: 00 No 2.5mg [facility] Kenalog (Triamcinol one) Kenalog (Triamcinol one) 0 07-25 00:00: 00 No 40mg [facility] Bupivicaine [place] Bupivicaine [place] 0 07-25 00:00: 00 No 2.5mg [facility] Kenalog (Triamcinol one) Kenalog (Triamcinol one) 07-25 00:00: 00 No 40mg [facility] Bupivicaine [place] Bupivicaine [place] 0 07-25 00:00: 00 No 2.5mg [facility] Kenalog (Triamcinol one) Kenalog (Triamcinol one) 0 07-25 00:00: 00 No 40mg [facility] Bupivicaine [place] Bupivicaine [place] 0 07-25 00:00: 00 No 2.5mg [facility] Kenalog (Triamcinol one) Kenalog (Triamcinol one) 0 07-25 00:00: 00 No 40mg [facility] Bupivicaine [place] Bupivicaine [place] 0 07-25 00:00: 00 No 2.5mg [facility] Kenalog (Triamcinol one) Kenalog (Triamcinol one) 07-25 00:00: 00 No 40mg [facility] Bupivicaine [place] Bupivicaine [place] 0 07-25 00:00: 00 No 2.5mg [facility] Kenalog (Triamcinol one) Kenalog (Triamcinol one) 2-25 00:00: 00 No 40mg [facility] Bupivicaine [place] Bupivicaine [place] 0 2-25 00:00: 00 No 2.5mg [facility] Kenalog (Triamcinol one) Kenalog (Triamcinol one) 2- 00:00: 00 No 40mg [facility] Bupivicaine [place] Bupivicaine [place] 2- 00:00: 00 No 2.5mg [facility] Kenalog (Triamcinol one) Kenalog (Triamcinol one) 2- 00:00: 00 No 40mg [facility] Bupivicaine [place] Bupivicaine [place] 2 00:00: 00 No 2.5mg [facility] Kenalog (Triamcinol one) Kenalog (Triamcinol one) 2-25 00:00: 00 No 40mg [facility] Bupivicaine [place] Bupivicaine [place] 2 00:00: 00 No 2.5mg [facility] Kenalog (Triamcinol one) Kenalog (Triamcinol one) 2-25 00:00: 00 No 40mg [facility] Omeprazole Omeprazole 2019-0 3-06 00:00: 00 Yes Na Ortega 1 capsule [facility] Famotidine Famotidine 2019-0 1- 00:00: 00 Yes Na Ortega 1 tablet as needed [facility] Famotidine 40 MG Famotidine 40 MG 2019-0 1- 00:00: 00 No 1{table t_as_ne eded} BID Famotidine 40 MG Famotidine 40 MG Famotidine 40 MG 2019-0 1- 00:00: 00 No 1{table t_as_ne eded} BID Famotidine 40 MG Famotidine 40 MG Famotidine 40 MG 2019-0 1- 00:00: 00 No 1{table t_as_ne eded} BID Famotidine 40 MG Famotidine 40 MG Famotidine 40 MG 06-22 00:00: 00 No 1{table t_as_ne eded} BID Famotidine 40 MG Famotidine 40 MG Famotidine 40 MG 0 06-22 00:00: 00 No 1{table t_as_ne eded} BID Famotidine 40 MG Famotidine 40 MG Famotidine 40 MG 0 06-22 00:00: 00 No 1{table t_as_ne eded} BID Famotidine 40 MG Famotidine 40 MG Famotidine 40 MG 0 06-22 00:00: 00 No 1{table t_as_ne eded} BID Famotidine 40 MG Famotidine 40 MG Famotidine 40 MG 0 06-22 00:00: 00 No 1{table t_as_ne eded} BID Famotidine 40 MG Famotidine 40 MG Famotidine 40 MG 0 06-22 00:00: 00 No 1{table t_as_ne eded} BID Famotidine 40 MG Kenalog (Triamcinol one) Kenalog (Triamcinol one) 2017-05 00:00: 00 No 40mg [facility] Kenalog (Triamcinol one) Kenalog (Triamcinol one) 2017-05 00:00: 00 No 40mg [facility] Kenalog (Triamcinol one) Kenalog (Triamcinol one) 2017-05 00:00: 00 No 40mg [facility] Kenalog (Triamcinol one) Kenalog (Triamcinol one) 2017-05 00:00: 00 No 40mg [facility] Kenalog (Triamcinol one) Kenalog (Triamcinol one) 2017-05 00:00: 00 No 40mg [facility] Kenalog (Triamcinol one) Kenalog (Triamcinol one) 2017-05 00:00: 00 No 40mg [facility] Kenalog (Triamcinol one) Kenalog (Triamcinol one) 2017-05 00:00: 00 No 40mg [facility] Kenalog (Triamcinol one) Kenalog (Triamcinol one) 2017-05 00:00: 00 No 40mg [facility] Kenalog (Triamcinol one) Kenalog (Triamcinol one) 2017-05 00:00: 00 No 40mg [facility] Kenalog (Triamcinol one) Kenalog (Triamcinol one) 2017-05 00:00: 00 No 40mg [facility] Kenalog (Triamcinol one) Kenalog (Triamcinol one) 2017-05 00:00: 00 No 40mg [facility] Kenalog (Triamcinol one) Kenalog (Triamcinol one) 2017-05 00:00: 00 No 40mg [facility] Kenalog (Triamcinol one) Kenalog (Triamcinol one) 2017-05 00:00: 00 No 40mg [facility] Kenalog (Triamcinol one) Kenalog (Triamcinol one) 2017-05 00:00: 00 No 40mg [facility] Lisinopril Lisinopril Yes Na Ortega 1 tablet [facility] Flonase Flonase Yes Na Ortega 1 spray in each nostril [facility] Zyrtec Allergy Zyrtec Allergy Yes Na Ortega 1 tablet [facility] Naproxen Naproxen Yes Na Ortega TAKE 1 TABLET BY MOUTH EVERY 12 HOURS NEEDED WITH FOOD OR MILK [facility] Levothyroxi ne Sodium Levothyroxi ne Sodium Yes Na Ortega 1 tablet on an empty stomach in the morning [facility] Verapamil HCl ER Verapamil HCl ER Yes Na Ortega 1 tablet [facility] Carvedilol Carvedilol Yes Na Ortega 1 tablet with food [facility] Omeprazole 40 MG Omeprazole 40 MG No 1{capsu le} QD Omeprazole 40 MG Naproxen 500 MG Naproxen 500 MG No BID Naproxen 500 MG Verapamil HCl ER 120 MG Verapamil HCl ER 120 MG No 1{table t} Verapamil HCl ER 120 MG Levothyroxi ne Sodium 100 MCG Levothyroxi ne Sodium 100 MCG No QD Levothyrox ine Sodium 100 MCG Lisinopril 40 MG Lisinopril 40 MG No Lisinopril 40 MG Carvedilol 12.5 MG Carvedilol 12.5 MG No 1{table t_with_ food} BID Carvedilol 12.5 MG Verapamil HCl ER 120 MG Verapamil HCl ER 120 MG No 1{table t} Verapamil HCl ER 120 MG EQ Allergy Relief (Cetirizine ) 10 MG EQ Allergy Relief (Cetirizine ) 10 MG No EQ Allergy Relief (Cetirizin e) 10 MG Carvedilol 12.5 MG Carvedilol 12.5 MG No Carvedilol 12.5 MG ZyrTEC Allergy 10 MG ZyrTEC Allergy 10 MG No 1{table t} QD ZyrTEC Allergy 10 MG Levothyroxi ne Sodium 100 MCG Levothyroxi ne Sodium 100 MCG No QD Levothyrox ine Sodium 100 MCG Rosuvastati n Calcium 5 MG Rosuvastati n Calcium 5 MG No 1{table t} Rosuvastat in Calcium 5 MG Omeprazole 40 MG Omeprazole 40 MG No Omeprazole 40 MG Euthyrox 100 MCG Euthyrox 100 MCG No Euthyrox 100 MCG Lisinopril 40 MG Lisinopril 40 MG No 1{table t} QD Lisinopril 40 MG EC-Naproxen 500 MG EC-Naproxen 500 MG No EC-Naproxe n 500 MG Flonase 50 MCG/ACT Flonase 50 MCG/ACT No 2{spray _in_eac h_nostr il} QD Flonase 50 MCG/ACT Naproxen 500 MG Naproxen 500 MG No BID Naproxen 500 MG Cetirizine HCl Cetirizine HCl No Cetirizine HCl EC-Naproxen 500 MG EC-Naproxen 500 MG No EC-Naproxe n 500 MG Carvedilol 12.5 MG Carvedilol 12.5 MG No 1{table t_with_ food} BID Carvedilol 12.5 MG Omeprazole 40 MG Omeprazole 40 MG No Omeprazole 40 MG Verapamil HCl ER 120 MG Verapamil HCl ER 120 MG No 1{table t} Verapamil HCl ER 120 MG Flonase 50 MCG/ACT Flonase 50 MCG/ACT No 2{spray _in_eac h_nostr il} QD Flonase 50 MCG/ACT Carvedilol 12.5 MG Carvedilol 12.5 MG No Carvedilol 12.5 MG Levothyroxi ne Sodium 100 MCG Levothyroxi ne Sodium 100 MCG No QD Levothyrox ine Sodium 100 MCG Rosuvastati n Calcium 5 MG Rosuvastati n Calcium 5 MG No 1{table t} Rosuvastat in Calcium 5 MG Naproxen 500 MG Naproxen 500 MG No BID Naproxen 500 MG Lisinopril 40 MG Lisinopril 40 MG No Lisinopril 40 MG Cetirizine HCl 10 MG Cetirizine HCl 10 MG No 1{table t} Cetirizine HCl 10 MG Euthyrox 100 MCG Euthyrox 100 MCG No Euthyrox 100 MCG ZyrTEC Allergy 10 MG ZyrTEC Allergy 10 MG No 1{table t} QD ZyrTEC Allergy 10 MG Lisinopril 40 MG Lisinopril 40 MG No 1{table t} QD Lisinopril 40 MG EQ Allergy Relief (Cetirizine ) 10 MG EQ Allergy Relief (Cetirizine ) 10 MG No EQ Allergy Relief (Cetirizin e) 10 MG Lisinopril 40 MG Lisinopril 40 MG No 1{table t} QD Lisinopril 40 MG Carvedilol 12.5 MG Carvedilol 12.5 MG No 1{table t_with_ food} BID Carvedilol 12.5 MG Flonase 50 MCG/ACT Flonase 50 MCG/ACT No 2{spray _in_eac h_nostr il} QD Flonase 50 MCG/ACT Carvedilol 12.5 MG Carvedilol 12.5 MG No Carvedilol 12.5 MG Verapamil HCl ER 120 MG Verapamil HCl ER 120 MG No 1{table t} Verapamil HCl ER 120 MG ZyrTEC Allergy 10 MG ZyrTEC Allergy 10 MG No 1{table t} QD ZyrTEC Allergy 10 MG Levothyroxi ne Sodium 100 MCG Levothyroxi ne Sodium 100 MCG No QD Levothyrox ine Sodium 100 MCG Rosuvastati n Calcium 5 MG Rosuvastati n Calcium 5 MG No 1{table t} Rosuvastat in Calcium 5 MG Omeprazole 40 MG Omeprazole 40 MG No Omeprazole 40 MG Lisinopril 40 MG Lisinopril 40 MG No Lisinopril 40 MG Cetirizine HCl 10 MG Cetirizine HCl 10 MG No 1{table t} Cetirizine HCl 10 MG Euthyrox 100 MCG Euthyrox 100 MCG No Euthyrox 100 MCG EC-Naproxen 500 MG EC-Naproxen 500 MG No EC-Naproxe n 500 MG Naproxen 500 MG Naproxen 500 MG No BID Naproxen 500 MG EQ Allergy Relief (Cetirizine ) 10 MG EQ Allergy Relief (Cetirizine ) 10 MG No EQ Allergy Relief (Cetirizin e) 10 MG Carvedilol 12.5 MG Carvedilol 12.5 MG No Carvedilol 12.5 MG Pravastatin Sodium 40 MG Pravastatin Sodium 40 MG No 1{table t} QD Pravastati n Sodium 40 MG EC-Naproxen 500 MG EC-Naproxen 500 MG No EC-Naproxe n 500 MG Lisinopril 40 MG Lisinopril 40 MG No 1{table t} QD Lisinopril 40 MG Euthyrox 100 MCG Euthyrox 100 MCG No Euthyrox 100 MCG Flonase 50 MCG/ACT Flonase 50 MCG/ACT No 2{spray _in_eac h_nostr il} QD Flonase 50 MCG/ACT Naproxen 500 MG Naproxen 500 MG No BID Naproxen 500 MG ZyrTEC Allergy 10 MG ZyrTEC Allergy 10 MG No 1{table t} QD ZyrTEC Allergy 10 MG Carvedilol 12.5 MG Carvedilol 12.5 MG No 1{table t_with_ food} BID Carvedilol 12.5 MG Lisinopril 40 MG Lisinopril 40 MG No Lisinopril 40 MG Levothyroxi ne Sodium 100 MCG Levothyroxi ne Sodium 100 MCG No QD Levothyrox ine Sodium 100 MCG Omeprazole 40 MG Omeprazole 40 MG No Omeprazole 40 MG EQ Allergy Relief (Cetirizine ) 10 MG EQ Allergy Relief (Cetirizine ) 10 MG No EQ Allergy Relief (Cetirizin e) 10 MG Verapamil HCl ER 120 MG Verapamil HCl ER 120 MG No 1{table t} Verapamil HCl ER 120 MG Cetirizine HCl 10 MG Cetirizine HCl 10 MG No 1{table t} Cetirizine HCl 10 MG Carvedilol 12.5 MG Carvedilol 12.5 MG No Carvedilol 12.5 MG Carvedilol 12.5 MG Carvedilol 12.5 MG No 1{table t_with_ food} BID Carvedilol 12.5 MG Cetirizine HCl 10 MG Cetirizine HCl 10 MG No 1{table t} Cetirizine HCl 10 MG Flonase 50 MCG/ACT Flonase 50 MCG/ACT No 2{spray _in_eac h_nostr il} QD Flonase 50 MCG/ACT Verapamil HCl ER 120 MG Verapamil HCl ER 120 MG No 1{table t} Verapamil HCl ER 120 MG EC-Naproxen 500 MG EC-Naproxen 500 MG No EC-Naproxe n 500 MG Pravastatin Sodium 40 MG Pravastatin Sodium 40 MG No 1{table t} QD Pravastati n Sodium 40 MG Lisinopril 40 MG Lisinopril 40 MG No 1{table t} QD Lisinopril 40 MG Verapamil HCl ER 120 MG Verapamil HCl ER 120 MG No Verapamil HCl ER 120 MG EQ Allergy Relief (Cetirizine ) 10 MG EQ Allergy Relief (Cetirizine ) 10 MG No EQ Allergy Relief (Cetirizin e) 10 MG busPIRone HCl 10 MG busPIRone HCl 10 MG No 1{table t} busPIRone HCl 10 MG Lisinopril 40 MG Lisinopril 40 MG No Lisinopril 40 MG Levothyroxi ne Sodium 100 MCG Levothyroxi ne Sodium 100 MCG No QD Levothyrox ine Sodium 100 MCG ZyrTEC Allergy 10 MG ZyrTEC Allergy 10 MG No 1{table t} QD ZyrTEC Allergy 10 MG Omeprazole 40 MG Omeprazole 40 MG No Omeprazole 40 MG Euthyrox 100 MCG Euthyrox 100 MCG No Euthyrox 100 MCG Naproxen 500 MG Naproxen 500 MG No BID Naproxen 500 MG Carvedilol 12.5 MG Carvedilol 12.5 MG No 1{table t_with_ food} BID Carvedilol 12.5 MG Flonase 50 MCG/ACT Flonase 50 MCG/ACT No 2{spray _in_eac h_nostr il} QD Flonase 50 MCG/ACT Euthyrox 100 MCG Euthyrox 100 MCG No Euthyrox 100 MCG Verapamil HCl ER 120 MG Verapamil HCl ER 120 MG No Verapamil HCl ER 120 MG Verapamil HCl ER 120 MG Verapamil HCl ER 120 MG No 1{table t} Verapamil HCl ER 120 MG EC-Naproxen 500 MG EC-Naproxen 500 MG No EC-Naproxe n 500 MG Pravastatin Sodium 40 MG Pravastatin Sodium 40 MG No 1{table t} QD Pravastati n Sodium 40 MG Lisinopril 40 MG Lisinopril 40 MG No 1{table t} QD Lisinopril 40 MG Lisinopril 40 MG Lisinopril 40 MG No Lisinopril 40 MG ZyrTEC Allergy 10 MG ZyrTEC Allergy 10 MG No 1{table t} QD ZyrTEC Allergy 10 MG busPIRone HCl 10 MG busPIRone HCl 10 MG No 1{table t} busPIRone HCl 10 MG EQ Allergy Relief (Cetirizine ) 10 MG EQ Allergy Relief (Cetirizine ) 10 MG No EQ Allergy Relief (Cetirizin e) 10 MG Naproxen 500 MG Naproxen 500 MG No BID Naproxen 500 MG Omeprazole 40 MG Omeprazole 40 MG No Omeprazole 40 MG Cetirizine HCl 10 MG Cetirizine HCl 10 MG No 1{table t} Cetirizine HCl 10 MG Carvedilol 12.5 MG Carvedilol 12.5 MG No Carvedilol 12.5 MG busPIRone HCl 10 MG busPIRone HCl 10 MG No BID busPIRone HCl 10 MG Naproxen 500 MG Naproxen 500 MG No BID Naproxen 500 MG Euthyrox 100 MCG Euthyrox 100 MCG No Euthyrox 100 MCG Verapamil HCl ER 120 MG Verapamil HCl ER 120 MG No Verapamil HCl ER 120 MG Verapamil HCl ER 120 MG Verapamil HCl ER 120 MG No 1{table t} Verapamil HCl ER 120 MG Pravastatin Sodium 40 MG Pravastatin Sodium 40 MG No 1{table t} QD Pravastati n Sodium 40 MG EC-Naproxen 500 MG EC-Naproxen 500 MG No EC-Naproxe n 500 MG Lisinopril 40 MG Lisinopril 40 MG No 1{table t} QD Lisinopril 40 MG Lisinopril 40 MG Lisinopril 40 MG No Lisinopril 40 MG ZyrTEC Allergy 10 MG ZyrTEC Allergy 10 MG No 1{table t} QD ZyrTEC Allergy 10 MG Carvedilol 12.5 MG Carvedilol 12.5 MG No 1{table t_with_ food} BID Carvedilol 12.5 MG Carvedilol 12.5 MG Carvedilol 12.5 MG No Carvedilol 12.5 MG EQ Allergy Relief (Cetirizine ) 10 MG EQ Allergy Relief (Cetirizine ) 10 MG No EQ Allergy Relief (Cetirizin e) 10 MG Omeprazole 40 MG Omeprazole 40 MG No Omeprazole 40 MG Cetirizine HCl 10 MG Cetirizine HCl 10 MG No 1{table t} Cetirizine HCl 10 MG Flonase 50 MCG/ACT Flonase 50 MCG/ACT No 2{spray _in_eac h_nostr il} QD Flonase 50 MCG/ACT Levothyroxi ne Sodium 100 MCG Levothyroxi ne Sodium 100 MCG No QD Levothyrox ine Sodium 100 MCG busPIRone HCl 10 MG busPIRone HCl 10 MG No 1{table t} busPIRone HCl 10 MG ZyrTEC Allergy 10 MG ZyrTEC Allergy 10 MG No 1{table t} QD ZyrTEC Allergy 10 MG Omeprazole 40 MG Omeprazole 40 MG No Omeprazole 40 MG Ezetimibe 10 MG Ezetimibe 10 MG No 1{table t} QD Ezetimibe 10 MG Lisinopril 40 MG Lisinopril 40 MG No 1{table t} QD Lisinopril 40 MG Verapamil HCl ER 120 MG Verapamil HCl ER 120 MG No 1{table t} Verapamil HCl ER 120 MG Carvedilol 12.5 MG Carvedilol 12.5 MG No 1{table t_with_ food} BID Carvedilol 12.5 MG Carvedilol 12.5 MG Carvedilol 12.5 MG No 1{table t_with_ food} BID Carvedilol 12.5 MG busPIRone HCl 10 MG busPIRone HCl 10 MG No 1{table t} busPIRone HCl 10 MG Naproxen 500 MG Naproxen 500 MG No BID Naproxen 500 MG Flonase 50 MCG/ACT Flonase 50 MCG/ACT No 2{spray _in_eac h_nostr il} QD Flonase 50 MCG/ACT Ezetimibe 10 MG Ezetimibe 10 MG No 1{table t} QD Ezetimibe 10 MG Levothyroxi ne Sodium 100 MCG Levothyroxi ne Sodium 100 MCG No QD Levothyrox ine Sodium 100 MCG busPIRone HCl 10 MG busPIRone HCl 10 MG No 1{table t} busPIRone HCl 10 MG ZyrTEC Allergy 10 MG ZyrTEC Allergy 10 MG No 1{table t} QD ZyrTEC Allergy 10 MG Omeprazole 40 MG Omeprazole 40 MG No Omeprazole 40 MG Ezetimibe 10 MG Ezetimibe 10 MG No 1{table t} QD Ezetimibe 10 MG Lisinopril 40 MG Lisinopril 40 MG No 1{table t} QD Lisinopril 40 MG Verapamil HCl ER 120 MG Verapamil HCl ER 120 MG No 1{table t} Verapamil HCl ER 120 MG Carvedilol 12.5 MG Carvedilol 12.5 MG No 1{table t_with_ food} BID Carvedilol 12.5 MG Carvedilol 12.5 MG Carvedilol 12.5 MG No 1{table t_with_ food} BID Carvedilol 12.5 MG busPIRone HCl 10 MG busPIRone HCl 10 MG No 1{table t} busPIRone HCl 10 MG Naproxen 500 MG Naproxen 500 MG No BID Naproxen 500 MG Flonase 50 MCG/ACT Flonase 50 MCG/ACT No 2{spray _in_eac h_nostr il} QD Flonase 50 MCG/ACT Ezetimibe 10 MG Ezetimibe 10 MG No 1{table t} QD Ezetimibe 10 MG Levothyroxi ne Sodium 100 MCG Levothyroxi ne Sodium 100 MCG No QD Levothyrox ine Sodium 100 MCG busPIRone HCl 10 MG busPIRone HCl 10 MG No 1{table t} busPIRone HCl 10 MG ZyrTEC Allergy 10 MG ZyrTEC Allergy 10 MG No 1{table t} QD ZyrTEC Allergy 10 MG Omeprazole 40 MG Omeprazole 40 MG No Omeprazole 40 MG Ezetimibe 10 MG Ezetimibe 10 MG No 1{table t} QD Ezetimibe 10 MG Lisinopril 40 MG Lisinopril 40 MG No 1{table t} QD Lisinopril 40 MG Verapamil HCl ER 120 MG Verapamil HCl ER 120 MG No 1{table t} Verapamil HCl ER 120 MG Carvedilol 12.5 MG Carvedilol 12.5 MG No 1{table t_with_ food} BID Carvedilol 12.5 MG Carvedilol 12.5 MG Carvedilol 12.5 MG No 1{table t_with_ food} BID Carvedilol 12.5 MG busPIRone HCl 10 MG busPIRone HCl 10 MG No 1{table t} busPIRone HCl 10 MG Naproxen 500 MG Naproxen 500 MG No BID Naproxen 500 MG Flonase 50 MCG/ACT Flonase 50 MCG/ACT No 2{spray _in_eac h_nostr il} QD Flonase 50 MCG/ACT Ezetimibe 10 MG Ezetimibe 10 MG No 1{table t} QD Ezetimibe 10 MG Levothyroxi ne Sodium 100 MCG Levothyroxi ne Sodium 100 MCG No QD Levothyrox ine Sodium 100 MCG busPIRone HCl 10 MG busPIRone HCl 10 MG No 1{table t} busPIRone HCl 10 MG ZyrTEC Allergy 10 MG ZyrTEC Allergy 10 MG No 1{table t} QD ZyrTEC Allergy 10 MG Omeprazole 40 MG Omeprazole 40 MG No Omeprazole 40 MG Ezetimibe 10 MG Ezetimibe 10 MG No 1{table t} QD Ezetimibe 10 MG Lisinopril 40 MG Lisinopril 40 MG No 1{table t} QD Lisinopril 40 MG Verapamil HCl ER 120 MG Verapamil HCl ER 120 MG No 1{table t} Verapamil HCl ER 120 MG Carvedilol 12.5 MG Carvedilol 12.5 MG No 1{table t_with_ food} BID Carvedilol 12.5 MG Carvedilol 12.5 MG Carvedilol 12.5 MG No 1{table t_with_ food} BID Carvedilol 12.5 MG busPIRone HCl 10 MG busPIRone HCl 10 MG No 1{table t} busPIRone HCl 10 MG Naproxen 500 MG Naproxen 500 MG No BID Naproxen 500 MG Flonase 50 MCG/ACT Flonase 50 MCG/ACT No 2{spray _in_eac h_nostr il} QD Flonase 50 MCG/ACT Ezetimibe 10 MG Ezetimibe 10 MG No 1{table t} QD Ezetimibe 10 MG Levothyroxi ne Sodium 100 MCG Levothyroxi ne Sodium 100 MCG No QD Levothyrox ine Sodium 100 MCG busPIRone HCl 10 MG busPIRone HCl 10 MG No 1{table t} busPIRone HCl 10 MG ZyrTEC Allergy 10 MG ZyrTEC Allergy 10 MG No 1{table t} QD ZyrTEC Allergy 10 MG Omeprazole 40 MG Omeprazole 40 MG No Omeprazole 40 MG Ezetimibe 10 MG Ezetimibe 10 MG No 1{table t} QD Ezetimibe 10 MG Lisinopril 40 MG Lisinopril 40 MG No 1{table t} QD Lisinopril 40 MG Verapamil HCl ER 120 MG Verapamil HCl ER 120 MG No 1{table t} Verapamil HCl ER 120 MG Carvedilol 12.5 MG Carvedilol 12.5 MG No 1{table t_with_ food} BID Carvedilol 12.5 MG Carvedilol 12.5 MG Carvedilol 12.5 MG No 1{table t_with_ food} BID Carvedilol 12.5 MG busPIRone HCl 10 MG busPIRone HCl 10 MG No 1{table t} busPIRone HCl 10 MG Naproxen 500 MG Naproxen 500 MG No BID Naproxen 500 MG Flonase 50 MCG/ACT Flonase 50 MCG/ACT No 2{spray _in_eac h_nostr il} QD Flonase 50 MCG/ACT Ezetimibe 10 MG Ezetimibe 10 MG No 1{table t} QD Ezetimibe 10 MG Levothyroxi ne Sodium 100 MCG Levothyroxi ne Sodium 100 MCG No QD Levothyrox ine Sodium 100 MCG busPIRone HCl 10 MG busPIRone HCl 10 MG No 1{table t} busPIRone HCl 10 MG ZyrTEC Allergy 10 MG ZyrTEC Allergy 10 MG No 1{table t} QD ZyrTEC Allergy 10 MG Omeprazole 40 MG Omeprazole 40 MG No Omeprazole 40 MG Ezetimibe 10 MG Ezetimibe 10 MG No 1{table t} QD Ezetimibe 10 MG Lisinopril 40 MG Lisinopril 40 MG No 1{table t} QD Lisinopril 40 MG Verapamil HCl ER 120 MG Verapamil HCl ER 120 MG No 1{table t} Verapamil HCl ER 120 MG Carvedilol 12.5 MG Carvedilol 12.5 MG No 1{table t_with_ food} BID Carvedilol 12.5 MG Carvedilol 12.5 MG Carvedilol 12.5 MG No 1{table t_with_ food} BID Carvedilol 12.5 MG busPIRone HCl 10 MG busPIRone HCl 10 MG No 1{table t} busPIRone HCl 10 MG Naproxen 500 MG Naproxen 500 MG No BID Naproxen 500 MG Flonase 50 MCG/ACT Flonase 50 MCG/ACT No 2{spray _in_eac h_nostr il} QD Flonase 50 MCG/ACT Ezetimibe 10 MG Ezetimibe 10 MG No 1{table t} QD Ezetimibe 10 MG Levothyroxi ne Sodium 100 MCG Levothyroxi ne Sodium 100 MCG No QD Levothyrox ine Sodium 100 MCG busPIRone HCl 10 MG busPIRone HCl 10 MG No 1{table t} busPIRone HCl 10 MG ZyrTEC Allergy 10 MG ZyrTEC Allergy 10 MG No 1{table t} QD ZyrTEC Allergy 10 MG Omeprazole 40 MG Omeprazole 40 MG No Omeprazole 40 MG Ezetimibe 10 MG Ezetimibe 10 MG No 1{table t} QD Ezetimibe 10 MG Lisinopril 40 MG Lisinopril 40 MG No 1{table t} QD Lisinopril 40 MG Verapamil HCl ER 120 MG Verapamil HCl ER 120 MG No 1{table t} Verapamil HCl ER 120 MG Carvedilol 12.5 MG Carvedilol 12.5 MG No 1{table t_with_ food} BID Carvedilol 12.5 MG Carvedilol 12.5 MG Carvedilol 12.5 MG No 1{table t_with_ food} BID Carvedilol 12.5 MG busPIRone HCl 10 MG busPIRone HCl 10 MG No 1{table t} busPIRone HCl 10 MG Naproxen 500 MG Naproxen 500 MG No BID Naproxen 500 MG Flonase 50 MCG/ACT Flonase 50 MCG/ACT No 2{spray _in_eac h_nostr il} QD Flonase 50 MCG/ACT Ezetimibe 10 MG Ezetimibe 10 MG No 1{table t} QD Ezetimibe 10 MG Carvedilol 12.5 MG Carvedilol 12.5 MG No Carvedilol 12.5 MG Carvedilol 12.5 MG Carvedilol 12.5 MG No 1{table t_with_ food} BID Carvedilol 12.5 MG Cetirizine HCl 10 MG Cetirizine HCl 10 MG No 1{table t} Cetirizine HCl 10 MG Flonase 50 MCG/ACT Flonase 50 MCG/ACT No 2{spray _in_eac h_nostr il} QD Flonase 50 MCG/ACT Verapamil HCl ER 120 MG Verapamil HCl ER 120 MG No 1{table t} Verapamil HCl ER 120 MG EC-Naproxen 500 MG EC-Naproxen 500 MG No EC-Naproxe n 500 MG Pravastatin Sodium 40 MG Pravastatin Sodium 40 MG No 1{table t} QD Pravastati n Sodium 40 MG Lisinopril 40 MG Lisinopril 40 MG No 1{table t} QD Lisinopril 40 MG Verapamil HCl ER 120 MG Verapamil HCl ER 120 MG No Verapamil HCl ER 120 MG EQ Allergy Relief (Cetirizine ) 10 MG EQ Allergy Relief (Cetirizine ) 10 MG No EQ Allergy Relief (Cetirizin e) 10 MG busPIRone HCl 10 MG busPIRone HCl 10 MG No 1{table t} busPIRone HCl 10 MG Lisinopril 40 MG Lisinopril 40 MG No Lisinopril 40 MG Levothyroxi ne Sodium 100 MCG Levothyroxi ne Sodium 100 MCG No QD Levothyrox ine Sodium 100 MCG ZyrTEC Allergy 10 MG ZyrTEC Allergy 10 MG No 1{table t} QD ZyrTEC Allergy 10 MG Omeprazole 40 MG Omeprazole 40 MG No Omeprazole 40 MG Euthyrox 100 MCG Euthyrox 100 MCG No Euthyrox 100 MCG Naproxen 500 MG Naproxen 500 MG No BID Naproxen 500 MG Flonase 50 MCG/ACT Flonase 50 MCG/ACT No 2{spray _in_eac h_nostr il} QD Flonase 50 MCG/ACT ZyrTEC Allergy 10 MG ZyrTEC Allergy 10 MG No 1{table t} QD ZyrTEC Allergy 10 MG Carvedilol 12.5 MG Carvedilol 12.5 MG No Carvedilol 12.5 MG Carvedilol 12.5 MG Carvedilol 12.5 MG No 1{table t_with_ food} BID Carvedilol 12.5 MG Cetirizine HCl Cetirizine HCl No Cetirizine HCl Lisinopril 40 MG Lisinopril 40 MG No Lisinopril 40 MG EC-Naproxen 500 MG EC-Naproxen 500 MG No EC-Naproxe n 500 MG Immunizations Ordered Immunization Name Filled Immunization Name Date Status Comments Source Prevnar 13 -Pneumonia Vaccine Prevnar 13 -Pneumonia Vaccine 2017-07-27 12:43:00 Completed [facility] Prevnar 13 -Pneumonia Vaccine Prevnar 13 -Pneumonia Vaccine 2017-07-27 12:43:00 Completed [facility] Prevnar 13 -Pneumonia Vaccine Prevnar 13 -Pneumonia Vaccine 2017-07-27 12:43:00 Completed [facility] Prevnar 13 -Pneumonia Vaccine Prevnar 13 -Pneumonia Vaccine 2017-07-27 12:43:00 Completed [facility] Prevnar 13 -Pneumonia Vaccine Prevnar 13 -Pneumonia Vaccine 2017-07-27 12:43:00 Completed [facility] Prevnar 13 -Pneumonia Vaccine Prevnar 13 -Pneumonia Vaccine 2017-07-27 12:43:00 Completed [facility] Prevnar 13 -Pneumonia Vaccine Prevnar 13 -Pneumonia Vaccine 2017-07-27 12:43:00 Completed [facility] Prevnar 13 -Pneumonia Vaccine Prevnar 13 -Pneumonia Vaccine 2017-07-27 12:43:00 Completed [facility] Prevnar 13 -Pneumonia Vaccine Prevnar 13 -Pneumonia Vaccine 2017-07-27 12:43:00 Completed [facility] Moderna COVID-19 Vaccine, Bivalent Moderna COVID-19 Vaccine, Bivalent Unknown Completed [facility] Prevnar 20 (PCV20) Prevnar 20 (PCV20) Unknown Completed [facility] Shingrix Shingrix Unknown Completed [facility] Prevnar 13 -Pneumonia Vaccine Prevnar 13 -Pneumonia Vaccine Unknown Completed [facility] Moderna COVID-19 Vaccine, Bivalent Moderna COVID-19 Vaccine, Bivalent Unknown Completed [facility] Prevnar 20 (PCV20) Prevnar 20 (PCV20) Unknown Completed [facility] Shingrix Shingrix Unknown Completed [facility] Prevnar 13 -Pneumonia Vaccine Prevnar 13 -Pneumonia Vaccine Unknown Completed [facility] Moderna COVID-19 Vaccine, Bivalent Moderna COVID-19 Vaccine, Bivalent Unknown Completed [facility] Prevnar 20 (PCV20) Prevnar 20 (PCV20) Unknown Completed [facility] Shingrix Shingrix Unknown Completed [facility] Prevnar 13 -Pneumonia Vaccine Prevnar 13 -Pneumonia Vaccine Unknown Completed [facility] Moderna COVID-19 Vaccine, Bivalent Moderna COVID-19 Vaccine, Bivalent Unknown Completed [facility] Prevnar 20 (PCV20) Prevnar 20 (PCV20) Unknown Completed [facility] Shingrix Shingrix Unknown Completed [facility] Prevnar 13 -Pneumonia Vaccine Prevnar 13 -Pneumonia Vaccine Unknown Completed [facility] Moderna COVID-19 Vaccine, Bivalent Moderna COVID-19 Vaccine, Bivalent Unknown Completed [facility] Prevnar 20 (PCV20) Prevnar 20 (PCV20) Unknown Completed [facility] Shingrix Shingrix Unknown Completed [facility] Prevnar 13 -Pneumonia Vaccine Prevnar 13 -Pneumonia Vaccine Unknown Completed [facility] Moderna COVID-19 Vaccine, Bivalent Moderna COVID-19 Vaccine, Bivalent Unknown Completed [facility] Prevnar 20 (PCV20) Prevnar 20 (PCV20) Unknown Completed [facility] Shingrix Shingrix Unknown Completed [facility] Prevnar 13 -Pneumonia Vaccine Prevnar 13 -Pneumonia Vaccine Unknown Completed [facility] Moderna COVID-19 Vaccine, Bivalent Moderna COVID-19 Vaccine, Bivalent Unknown Completed [facility] Prevnar 20 (PCV20) Prevnar 20 (PCV20) Unknown Completed [facility] Shingrix Shingrix Unknown Completed [facility] Prevnar 13 -Pneumonia Vaccine Prevnar 13 -Pneumonia Vaccine Unknown Completed [facility] Vital Signs Vital Name Observation Time Observation Value Comments S brandonce height 2022-11-17 09:50:00 66.00 [in_i] Com [facility] weight 2022-11-17 09:50:00 196.4 [lb_av] Co [facility] temperature 2022-11-17 09:50:00 97.8 [degF] Com [facility] bmi 2022-11-17 09:50:00 31.7 kg/m2 [facility] n [facility] oximetry 2022-11-17 09:50:00 95 % [facility] respiratory rate 2022-11-17 09:50:00 16 /min [facility] blood pressure systolic 2022-11-17 09:50:00 137 mm[Hg] [facility] blood pressure diastolic 2022-11-17 09:50:00 68 mm[Hg] [facility] height 2022-11-17 10:00:00 66.00 [in_i] Com [facility] weight 2022-11-17 10:00:00 196.4 [lb_av] Co [facility] temperature 2022-11-17 10:00:00 97.8 [degF] Com mon [facility] bmi 2022-11-17 10:00:00 31.7 kg/m2 Commo n [facility] oximetry 2022-11-17 10:00:00 95 % Commo n [facility] respiratory rate 2022-11-17 10:00:00 16 /min [facility] blood pressure systolic 2022-11-17 10:00:00 137 mm[Hg[facility] pressure diastolic 2022-11-17 10:00:00 68 mm[Hg] [facility] height 2022-08-17 09:00:00 66.00 [in_i] Com [facility] weight 2022-08-17 09:00:00 193.4 [lb_av] Co mmon [facility] temperature 2022-08-17 09:00:00 97.2 [degF] Com [facility] bmi 2022-08-17 09:00:00 31.21 kg/m2 Comm on [facility] oximetry 2022-08-17 09:00:00 97 % Commo n [facility] respiratory rate 2022-08-17 09:00:00 17 /min [facility] blood pressure systolic 2022-08-17 09:00:00 117 mm[Hg] [facility] blood pressure diastolic 2022-08-17 09:00:00 61 mm[Hg] [facility] Encounters Start Date/Time End Date/Time Encounter Type Admission Type Attending Clinicians Care Facility Care Department Encounter ID Source 2023-02-17 09:09:00 [facility] [id number] [facility] 2022-08-05 09:33:00 [facility] [id number] [facility] 2022-05-28 16:11:00 Outpatient ORTEGA, Na STLMLC ST[facility] [id number] [facility] 2021-10-30 15:29:00 Outpatient Ortega, Na STLMLC ST[facility] [id number] [facility] 2021-06-25 14:39:16 Outpatient Ortega, Na STLMLC ST[facility]C [id number] [facility] 2021-06-25 13:26:23 Outpatient Ortega, Na STLMLC STLMLC [id number] [facility] 2021-06-25 12:46:19 Outpatient Ortega, Na STLMLC ST[facility]MLC [id number] [facility] 2021-06-25 12:45:14 Outpatient Ortega, Na STLMLC STLMLC [id number] [facility] 2021-06-25 12:44:48 Outpatient Ortega, Na STLMLC STLMLC [id number] [facility] 2021-06-25 12:42:24 Outpatient Ortega, Na STLMLC STLMLC [id number] [facility] 2021-06-25 12:33:38 Outpatient Ortega, Na STLMLC ST[facility]MLC [id number] [facility] 2021-06-25 12:32:40 Outpatient Ortega, Na STLMLC STLMLC [id number] [facility] 2021-06-25 12:32:07 Outpatient Ortega, Na STLMLC STLMLC [id number] [facility] 2021-06-25 12:25:42 Outpatient Ortega, Na STLMLC STLMLC [id number] [facility] 2021-06-25 12:11:27 Outpatient Ortega, Na STLMLC STLMLC [id number] [facility] 2021-06-25 11:50:19 Outpatient Ortega, Na STLMLC STLMLC [id number] [facility] 2021-06-25 11:49:34 Outpatient Ortega, Na STLMLC STLMLC [id number] [facility] 2021-06-25 11:49:06 Outpatient Ortega, Na STLMLC STLMLC [id number] [facility] 2021-06-25 11:12:13 Outpatient Ortega, Na STLMLC STLMLC [id number] [facility] 2021-06-25 11:02:24 Outpatient Ortega, Na STLMLC STLMLC [id number] [facility] 2021-06-25 11:01:59 Outpatient Ortega, Na STLMLC STLMLC [id number] [facility] 2023-03-29 00:00:00 2023-03-29 00:00:00 Outpatient GC_GCBZW_Ka diyala_S [facility] [id number] [facility] 2022-11-17 00:00:00 2022-11-17 00:00:00 OFFICE VISIT ESTAB PT LEVEL 4 STLMLC STLMLC [id number] [facility] 2022-11-17 00:00:00 2022-11-17 00:00:00 SUB ANNUAL [facility] VIS[facility] STLMLC STLMLC [id number] [facility] 2022-09-29 00:00:00 2022-09-29 00:00:00 (TEL) STLMLC STLMLC [id number] [facility] 2022-09-08 00:00:00 2022-09-08 00:00:00 (TEL) STLMLC STLMLC [id number] [facility] 2022-08-17 00:00:00 2022-08-17 00:00:00 OFFICE VISIT ESTAB PT LEVEL 4 [facility]C STL[facility]C [id number] [facility] 2022-08-05 00:00:00 2022-08-05 00:00:00 (TEL) STLMLC STLMLC [id number] [facility] 2022-07-31 00:00:00 2022-07-31 00:00:00 (TEL) STLMLC STLMLC [id number] [facility] 2022-06-22 00:00:00 2022-06-22 00:00:00 (TEL) STLMLC STLMLC [id number] [facility] 2022-04-14 00:00:00 2022-04-14 00:00:00 (TEL) STLMLC STLMLC [id number] [facility] 2022-02-05 00:00:00 2022-02-05 00:00:00 OL DIG E/M SVC 11-20 MIN STLMLC STLMLC [id number] [facility] 2021-11-03 00:00:00 2021-11-03 00:00:00 OL DIG E/M SVC 11-20 MIN STLMLC STLMLC [id number] [facility] 2021-10-13 00:00:00 2021-10-13 00:00:00 (TEL) STLMLC STLMLC [id number] [facility] 2021-09-30 00:00:00 2021-09-30 00:00:00 (TEL) STLMLC STLMLC [id number] [facility] 2021-07-16 00:00:00 2021-07-16 00:00:00 (TEL) STLMLC STLMLC [id number] [facility] 2021-04-21 00:00:00 2021-04-21 00:00:00 (TEL) STLMLC STLMLC [id number] [facility] 2020-12-18 00:00:00 2020-12-18 00:00:00 Outpatient STLMLC ST[facility]C [id number] [facility] 2020-12-05 00:00:00 2020-12-05 00:00:00 Outpatient STLMLC ST[facility]C [id number] [facility] 2020-08-26 00:00:00 2020-08-26 00:00:00 Outpatient STLMLC [facility]C [id number] [facility] 2020-07-25 00:00:00 2020-07-25 00:00:00 Outpatient [facility]LMLC [facility]C [id number] [facility] 2020-07-19 00:00:00 2020-07-19 00:00:00 Outpatient [facility]LMLC [facility]C [id number] [facility] 2020-06-25 00:00:00 2020-06-25 00:00:00 Outpatient STLMLC STL[facility]C [id number] [facility] 2020-02-28 00:00:00 2020-02-28 00:00:00 Outpatient [facility]LMLC ST[facility]C [id number] [facility] 2020-02-27 00:00:00 2020-02-27 00:00:00 Outpatient [facility]LMLC STL[facility]C [id number] [facility] 2019-11-06 08:40:00 2019-11-06 08:40:[address] [facility] [id number] [facility] 2019-08-04 10:00:00 2019-08-04 10:00:[address] [facility] [id number] [facility] 2019-08-04 09:00:00 2019-08-04 09:00:00 [facility] [id number] [facility] 2019-06-23 10:59:00 2019-06-23 10:59:[address] [facility] [facility] [id number] [facility] 2019-06-22 13:20:00 2019-06-22 13:20:00 Outpatient [facility] [id number] [facility] 2018-12-19 08:03:00 2018-12-19 08:03:00 [facility] [id number] [facility] 2018-12-05 08:00:00 2018-12-05 08:00:00 [facility] [id number] [facility] 2018-08-10 10:15:00 2018-08-10 10:15:00 Outpatient [facility] [id number] [facility] 2018-04-11 11:00:00 2018-04-11 11:00:00 Outpatient [facility] [id number] [facility] 2017-10-26 09:15:00 2017-10-26 09:15:00 Outpatient [facility] [id number] [facility] Results Test Description Test Time Test Comments Results Result Co mments Source HEMOGLOBIN [id number] 00:00:00* Test Item Value Reference Range Interpretation Comme nts HEMOGLOBIN A1c (test code = 4548-4) 6.0 % See_Comment H [Automated messa ge] The system which generated this result transmitted reference range: 4.2-5.6 %. The reference range was not used to interpret this result as normal/abnormal. TSH REFLEX TO FREE [id number] 00:00:00* Test Item Value Reference Range Interpretation Comme nts TSH REFLEX TO FREE T4 (test code = 60688-3) 1.390 UIU/ML See_Comment [Automated messa ge] The system which generated this result transmitted reference range: 0.400-4.100 UIU/ML. The reference range was not used to interpret this result as normal/abnormal. LIPID PANEL WITH REFLEX DIRECT [id number] 00:00:00* Test Item Value Reference Range Interpretation Comme nts CALC LDL CHOL (test code = 79161-2) 130 MG/DL See_Comment H [Automated messa ge] The system which generated this result transmitted reference range: <100 MG/DL. The reference range was not used to interpret this result as normal/abnormal. CHOLESTEROL (test code = 2093-3) 204 MG/DL See_Comment H [Automated [employer]] The system which generated this result transmitted reference range: <200 MG/DL. The reference range was not used to interpret this result as normal/abnormal. HDL CHOLESTEROL (test code = 2085-9) 50 MG/DL See_Comment [Automated [employer]] The system which generated this result transmitted reference range: >39 MG/DL. The reference range was not used to interpret this result as normal/abnormal. RISK RATIO LDL/HDL (test code = 77778-7) 2.60 RATIO See_Comment [Automated message] The system which generated this result transmitted reference range: <3.22 RATIO. The reference range was not used to interpret this result as normal/abnormal. TRIGLYCERIDES (test code = 2571-8) 125 MG/DL See_Comment [Automated [employer]] The system which generated this result transmitted reference range: <150 MG/DL. The reference range was not used to interpret this result as normal/abnormal. COMPREHENSIVE METABOLIC [id number] 00:00:00* Test Item Value Reference Range Interpretation Comme nts ALBUMIN (test code = 1751-7) 4.4 G/DL See_Comment [Automated [employer]] The system which generated this result transmitted reference range: 3.5-5.2 G/DL. The reference range was not used to interpret this result as normal/abnormal. ALKALINE PHOSPHATASE (test code = 6768-6) 89 U/L See_Comment [Automated message] The system which generated this result transmitted reference range: 40-142 U/L. The reference range was not used to interpret this result as normal/abnormal. BILIRUBIN, TOTAL (test code = 1975-2) 0.3 MG/DL See_Comment [Automated message] The system which generated this result transmitted reference range: <=1.2 MG/DL. The reference range was not used to interpret this result as normal/abnormal. BUN (test code = 3094-0) 15 MG/DL See_Comment [Automated [employer]] The system which generated this result transmitted reference range: 8-23 MG/DL. The reference range was not used to interpret this result as normal/abnormal. CALCIUM (test code = 16127-0) 9.5 MG/DL See_Comment [Automated messa ge] The system which generated this result transmitted reference range: 8.5-10.5 MG/DL. The reference range was not used to interpret this result as normal/abnormal. CALC A/G RATIO (test code = 1759-0) 1.8 RATIO See_Comment [Automated messa ge] The system which generated this result transmitted reference range: 1.0-2.6 RATIO. The reference range was not used to interpret this result as normal/abnormal. CALC BUN/CREAT (test code = 3097-3) 18 RATIO See_Comment [Automated messa ge] The system which generated this result transmitted reference range: 6-28 RATIO. The reference range was not used to interpret this result as normal/abnormal. CALC GLOBULIN (test code = 67670-3) 2.5 G/DL See_Comment [Automated messa ge] The system which generated this result transmitted reference range: 1.9-3.7 G/DL. The reference range was not used to interpret this result as normal/abnormal. CARBON DIOXIDE (test code = 1963-8) 25 MEQ/L See_Comment [Automated messa ge] The system which generated this result transmitted reference range: 19-31 MEQ/L. The reference range was not used to interpret this result as normal/abnormal. CHLORIDE (test code = 2075-0) 104 MEQ/L See_Comment [Automated messa ge] The system which generated this result transmitted reference range: 95-107 MEQ/L. The reference range was not used to interpret this result as normal/abnormal. CREATININE (test code = 2160-0) 0.84 MG/DL See_Comment [Automated messa ge] The system which generated this result transmitted reference range: 0.60-1.30 MG/DL. The reference range was not used to interpret this result as normal/abnormal. eGFR (2020 CKD-EPI) (test code = 64880-9) 73 ML/MIN/1.73 See_Comment [Automated messa ge] The system which generated this result transmitted reference range: >60 ML/MIN/1.73. The reference range was not used to interpret this result as normal/abnormal. GLUCOSE (test code = 1558-6) 111 MG/DL See_Comment H [Automated messa ge] The system which generated this result transmitted reference range: 70-99 MG/DL. The reference range was not used to interpret this result as normal/abnormal. POTASSIUM (test code = 2823-3) 4.7 MEQ/L See_Comment [Automated messa ge] The system which generated this result transmitted reference range: 3.5-5.4 MEQ/L. The reference range was not used to interpret this result as normal/abnormal. PROTEIN, TOTAL (test code = 2885-2) 6.9 G/DL See_Comment [Automated messa ge] The system which generated this result transmitted reference range: 6.1-8.3 G/DL. The reference range was not used to interpret this result as normal/abnormal. AST (test code = 1920-8) 17 U/L See_Comment [Automated messa ge] The system which generated this result transmitted reference range: 9-40 U/L. The reference range was not used to interpret this result as normal/abnormal. ALT (test code = 1742-6) 15 U/L See_Comment [Automated messa ge] The system which generated this result transmitted reference range: 5-40 U/L. The reference range was not used to interpret this result as normal/abnormal. SODIUM (test code = 2951-2) 140 MEQ/L See_Comment [Automated messa ge] The system which generated this result transmitted reference range: 133-146 MEQ/L. The reference range was not used to interpret this result as normal/abnormal.
--- NOTE | 2023-05-18 13:10 | RAD REPORT ---
EXAM DESCRIPTION: RAD - Chest Pa And Lat (2 Views) - 05/18/2023 1:00 pm CLINICAL HISTORY: COUGH Chest pain. TECHNIQUE: PA and lateral views of the chest were obtained. FINDINGS: The lungs are hyperexpanded compatible with COPD. The heart is upper limit of normal in si ze. No fracture or aggressive bony process. IMPRESSION: COPD without acute process identified. The USPSTF recommends annual screening for lung cancer with low-dose CT (LDCT) in adults aged 50 to 80 years who have a 20 pack-year smoking history and currently smoke or have quit within the past 15 years.
[2023-05-18 13:32] LABS: SARS-CoV-2 Antigen Rapid Res Negative (Negative)
--- NOTE | 2023-05-18 14:33 | ER ---
Nurse's Notes [facility] Name: Ismael Weinberg Age: 72 yrs Sex: Female : 1950 Arrival Date: 05/18/2023 Time: 12:29 Bed 11 Private MD: Diagnosis: Influenza due to identified novel influenza A virus with other respiratory manifestations;COPD/ Chronic obstructive pulmonary disease, unspecified;Cough Presentation: 05/18 12:35 Chief complaint: Patient states: 6 days sick, "I think I may have the flu". Cough, nj1 headache, malaise. Coronavirus screen: Vaccine status: Patient reports receiving the 2nd dose of the covid vaccine. Ebola Screen: Patient denies travel to an Ebola-affected area in the 21 days before illness onset. Initial Sepsis Screen: Does the patient meet any 2 criteria? No. Patient's initial sepsis screen is negative. Does the patient have a suspected source of infection? No. Patient's initial sepsis screen is negative. Risk Assessment: Do you want to hurt yourself or someone else? Patient reports no desire to harm self or others. Onset of symptoms was May 13, 2023. 12:35 Method Of Arrival: Ambulatory nj1 12:35 Acuity: JEROME 4 nj1 12:43 Coronavirus screen: tl4 Triage Assessment: 12:44 General: Appears in no apparent distress. Behavior is calm, cooperative. tl4 Historical: - Allergies: 12:38 No Known Allergies; nj1 - PMHx: 12:38 Hypertension; Hypothyroidism; nj1 - Immunization history:: Client reports receiving the 2nd dose of the Covid vaccine. - Social history:: Smoking status: Patient denies any tobacco usage or history of. Screenin:43 [facility] ED Fall Risk Assessment (Adult) History of falling in the last 3 months, tl4 including since admission No falls in past 3 months (0 pts) Confusion or Disorientation No (0 pts) Intoxicated or Sedated No (0 pts) Impaired Gait No (0 pts) Mobility Assist Device Used No (0 pt) Altered Elimination No (0 pt) Score/Fall Risk Level 0 - 2 = Low Risk Oriented to surroundings, Maintained a safe environment. Abuse screen: Denies threats or abuse. Denies injuries from another. Nutritional screening: No deficits noted. Tuberculosis screening: No symptoms or risk factors identified. Assessment: 12:43 Reassessment: No changes from previously documented assessment. Patient and/or family tl4 updated on plan of care and expected duration. Pain level reassessed. Patient is alert, oriented x 3, equal unlabored respirations, skin warm/dry/pink. Pain: Denies pain. Vital Signs: 12:35 BP 150 / 76; Pulse 73; Resp 17; Temp 98.6; Pulse Ox 96% on R/A; Weight 86.18 kg; Height nj1 5 ft. 6 in. ; Pain 8/10; 14:55 BP 144 / 72; Pulse 72; Resp 18; Pulse Ox 97% on R/A; Pain 0/10; tl4 12:35 Body Mass Index 30.67 (86.18 kg, 167.64 cm) nj1 12:35 Pain Scale: Adult nj1 14:55 Pain Scale: Adult tl4 ED Course: 12:33 Patient arrived in ED. mg5 12:36 Adiel Arrington is Primary Nurse. tl4 12:38 Triage completed. nj1 12:39 Arm band placed on left wrist. nj1 12:42 Robbie iJmenez MD is Attending Physician. [facility] 12:43 Patient has correct armband on for positive identification. Bed in low position. Call tl4 light in reach. Provided Education on: ED process. 12:44 No provider procedures requiring assistance completed. tl4 13:02 Chest Pa And Lat (2 Views) XRAY In Process Unspecified. EDMS 14:56 Patient did not have IV access during this emergency room visit. tl4 Administered Medications: 12:58 Drug: AZITHromycin PO 500 mg PO once Route: PO; tl4 13:52 Follow up: Response: No adverse reaction tl4 14:08 Drug: predniSONE PO 40 mg PO once Route: PO; tl4 14:54 Follow up: Response: No adverse reaction tl4 14:08 Drug: Oseltamivir PO 75 mg PO once Route: PO; tl4 14:54 Follow up: Response: No adverse reaction tl4 14:08 Drug: Levalbuterol Inhalation 1.25 mg Inhalation once Route: Inhalation; tl4 14:54 Follow up: Response: No adverse reaction tl4 Medication: 12:44 VIS not applicable for this client. tl4 Outcome: 14:32 Discharge ordered by . [facility] 14:55 Discharged to home ambulatory, tl4 14:55 Condition: stable 14:55 Discharge instructions given to patient, Instructed on discharge instructions, follow up and referral plans. medication usage, Demonstrated understanding of instructions, follow-up care, medications, 14:56 Patient left the ED. tl4 Signatures: Dispatcher [employer] EDRobbie Alcazar MD MD cha Jaco, Norma RN RN nj1 Chantale Mueller mg5 Adiel Arrington tl4
--- NOTE | 2023-05-18 14:33 | EDPHYS ---
Physician Documentation [facility] Name: Ismael Weinberg Age: 72 yrs Sex: Female : 1950 Arrival Date: 05/18/2023 Time: 12:29 Bed 11 Private MD: ED Physician Robbie Jimenez HPI: 05/18 14:21 This 72 yrs old Female presents to ER via Ambulatory with complaints of Flu neri Symptoms. 14:21 The patient or guardian reports airway noise, cough, flu symptoms, arthralgias, neri low-grade fever, myalgias. Onset: The symptoms/episode began/occurred 2 day(s) ago. Modifying factors: The symptoms are alleviated by remaining still. The patient or guardian reports difficulty breathing. Severity of symptoms: At their worst the symptoms were mild, moderate, in the emergency department the symptoms are unchanged. Associated signs and symptoms: The patient has no apparent associated signs or symptoms. Modifying factors: The symptoms are alleviated by nothing. Severity of symptoms: At their worst the symptoms were mild in the emergency department the symptoms are unchanged. Associated signs and symptoms: Pertinent positives: nausea, rhinorrhea, sore throat. The patient has experienced similar episodes in the past, several times. Historical: - Allergies: 12:38 No Known Allergies; nj1 - PMHx: 12:38 Hypertension; Hypothyroidism; nj1 - Immunization history:: Client reports receiving the 2nd dose of the Covid vaccine. - Social history:: Smoking status: Patient denies any tobacco usage or history of. ROS: 14:26 Constitutional: Negative for fever, chills, and weight loss, Eyes: Negative for injury, neri pain, redness, and discharge, ENT: Negative for injury, pain, and discharge, Neck: Negative for injury, pain, and swelling, Cardiovascular: Negative for chest pain, palpitations, and edema, Abdomen/GI: Negative for abdominal pain, nausea, vomiting, diarrhea, and constipation, Back: Negative for injury and pain, : Negative for injury, bleeding, discharge, and swelling, MS/Extremity: Negative for injury and deformity, Skin: Negative for injury, rash, and discoloration, Neuro: Negative for headache, weakness, numbness, tingling, and seizure, Psych: Negative for depression, anxiety, suicide ideation, homicidal ideation, and hallucinations, Allergy/Immunology: Negative for hives, rash, and allergies, Endocrine: Negative for neck swelling, polydipsia, polyuria, polyphagia, and marked weight changes, Hematologic/Lymphatic: Negative for swollen nodes, abnormal bleeding, and unusual bruising, 14:26 Respiratory: Positive for cough, "sounds productive", Exam: 14:26 Constitutional: This is a well developed, well nourished patient who is awake, alert, neri and in no acute distress. Head/Face: Normocephalic, atraumatic. Eyes: Pupils equal round and reactive to light, extra-ocular motions intact. Lids and lashes normal. Conjunctiva and sclera are non-icteric and not injected. Cornea within normal limits. Periorbital areas with no swelling, redness, or edema. ENT: Nares patent. No nasal discharge, no septal abnormalities noted. Tympanic membranes are normal and external auditory canals are clear. Oropharynx with no redness, swelling, or masses, exudates, or evidence of obstruction, uvula midline. Mucous membranes moist. Neck: Trachea midline, no thyromegaly or masses palpated, and no cervical lymphadenopathy. Supple, full range of motion without nuchal rigidity, or vertebral point tenderness. No Meningismus. Chest/axilla: Normal chest wall appearance and motion. Nontender with no deformity. No lesions are appreciated. Cardiovascular: Regular rate and rhythm with a normal S1 and S2. No gallops, murmurs, or rubs. Normal PMI, no JVD. No pulse deficits. Respiratory: Lungs have equal breath sounds bilaterally, clear to auscultation and percussion. No rales, rhonchi or wheezes noted. No increased work of breathing, no retractions or nasal flaring. Abdomen/GI: Soft, non-tender, with normal bowel sounds. No distension or tympany. No guarding or rebound. No evidence of tenderness throughout. Back: No spinal tenderness. No costovertebral tenderness. Full range of motion. Skin: Warm, dry with normal turgor. Normal color with no rashes, no lesions, and no evidence of cellulitis. MS/ Extremity: Pulses equal, no cyanosis. Neurovascular intact. Full, normal range of motion. Neuro: Awake and alert, GCS 15, oriented to person, place, time, and situation. Cranial nerves II-XII grossly intact. Motor strength 5/5 in all extremities. Sensory grossly intact. Cerebellar exam normal. Normal gait. Psych: Awake, alert, with orientation to person, place and time. Behavior, mood, and affect are within normal limits. 14:26 Musculoskeletal/extremity: DVT Exam: No signs of deep vein thrombosis. no pain, no swelling, no tenderness, negative Homans' sign noted on exam, no appreciated bluish discoloration, no erythema, no increased warmth, Vital Signs: 12:35 BP 150 / 76; Pulse 73; Resp 17; Temp 98.6; Pulse Ox 96% on R/A; Weight 86.18 kg; Height nj1 5 ft. 6 in. ; Pain 8/10; 14:55 BP 144 / 72; Pulse 72; Resp 18; Pulse Ox 97% on R/A; Pain 0/10; tl4 12:35 Body Mass Index 30.67 (86.18 kg, 167.64 cm) nj1 12:35 Pain Scale: Adult nj1 14:55 Pain Scale: Adult tl4 MDM: 12:42 Patient medically screened. neri 14:27 Differential diagnosis: obstructed airway, bronchitis, flu, URI. Antibiotic neri administration: The patient is discharged and will get outpatient antibiotics, Zithromax. Differential Diagnosis: Obstructed Airway Bronchitis Influenza Upper Respiratory Infection Sinusitis Pharyngitis Asthma Exacerbation Viral Syndrome Pneumonia. Data reviewed: vital signs, nurses notes, lab test result(s), radiologic studies, plain films. Consideration of Admission/Observation Escalation of care including admission/observation considered. Independent interpretation of the following test(s) in the Emergency Department X-Ray: My interpretation is CXR COPD. 05/18 12:44 Order name: Flu; Complete Time: 13:40 [facility] 05/18 12:44 Order name: SARS RAPID; Complete Time: 13:40 [facility] 05/18 12:44 Order name: Chest Pa And Lat (2 Views) XRAY; Complete Time: 13:40 [facility] Administered Medications: 12:58 Drug: AZITHromycin PO 500 mg PO once Route: PO; tl4 13:52 Follow up: Response: No adverse reaction tl4 14:08 Drug: predniSONE PO 40 mg PO once Route: PO; tl4 14:54 Follow up: Response: No adverse reaction tl4 14:08 Drug: Oseltamivir PO 75 mg PO once Route: PO; tl4 14:54 Follow up: Response: No adverse reaction tl4 14:08 Drug: Levalbuterol Inhalation 1.25 mg Inhalation once Route: Inhalation; tl4 14:54 Follow up: Response: No adverse reaction tl4 Disposition Summary: 05/18/23 14:32 Discharge Ordered Notes: Location: Home [facility] Problem: new [facility] Symptoms: have improved neri Condition: Stable neri Diagnosis - Influenza due to identified novel influenza A virus with other respiratory [facility] manifestations - COPD/ Chronic obstructive pulmonary disease, unspecified neri - Cough neri Followup: [facility] - With: Private Physician - When: 2 - 3 days - Reason: Recheck today's complaints, Continuance of care, Re-evaluation by your physician Discharge Instructions: - Discharge Summary Sheet [facility] - Influenza, Adult neri - Chronic Obstructive Pulmonary Disease Exacerbation neri - Chronic Obstructive Pulmonary Disease, [id number] [facility] - Influenza, Adult, [id number] [facility] Forms: - Medication Reconciliation Form [facility] - Thank You Letter [facility] - Antibiotic Education [facility] - Prescription Opioid Use [facility] - Patient Portal Instructions [facility] - Leadership Thank You Letter [facility] Prescriptions: - albuterol sulfate 90 mcg/actuation Inhalation HFA Aerosol Inhaler - inhale 2 inhalation INHALATION route every 6-8 hours; 1 unit; Refills: 0, [facility] Product Selection Permitted - Tessalon Perles 100 mg Oral capsule - take 2 capsule ORAL route every 8 hours As needed; 30 capsule; Refills: 0, [facility] Product Selection Permitted - Medrol (Zeferino) 4 mg Oral Tablets, Dose Pack - take 1 tablet ORAL route as directed - follow package instructions; 1 packet; [facility] Refills: 0, Product Selection Permitted - Tamiflu 75 mg Oral capsule - take 1 tablet ORAL route every 12 hours for 5 days; 10 tablet; Refills: 0, [facility] Product Selection Permitted - Zithromax 500 mg Oral tablet - take 1 tablet ORAL route once daily for 5 days; 5 tablet; Refills: 0, Product [facility] Selection Permitted Signatures: Dispatcher [employer] Robbie Bradley MD MD cha Jaco, Norma RN RN nj1 LogAdiel oswald tl4
[2023-05-18 16:59] VITALS: TEMP 98.6
[2023-05-18 17:03] VITALS: BP 144/72; O2SAT 97
== END ==
LOC: ER 12:29
DX: J44.9 Chronic obstructive pulmonary disease, unspecified (principal); Z11.52 Encounter for screening for COVID-19; I10 Essential (primary) hypertension
CPT/HCPCS: 36415; 87804 ×2; 71046; 99284; 87811; J7512; J7614

== ENCOUNTER 2024-07-17 11:13 | Emergency (ER) | payer OTHER ==
--- OUTSIDE RECORDS SUMMARY | 2024-07-17 11:17 | XMS REPORT | Continuity of Care Document ---
Author Name Unknown Address [address] [facility] [address] [place] [address] [facility] Address [address] [facility] [address] [place] [address] Care Team Providers Care Treasury Accountant Name Role Phone Elvis Hawk Attending Clinician Unavailable Delphine ORTEGA Attending Clinician Unavailable JANETT BOONE Attending Clinician Unavailable [email or web address] Attending Clinician Unavaila ble ELVIS HAWK Admitting Clinician Unavailable [email or web address]_S Admitting Clinician Unavaila ble Payers Payer Name Policy Type Policy Number Effective Date Expirati on Date Source [employer] MEDICARE 53 [id number] 2020 00:00:00 [facility] MEDICARE NOVITAS MB [id number] 2014 00:00:00 [facility] Problems Condition Name Condition Details Condition Category Status Onset Date Resolution Date Last Treatment Date Treating Clinician Comments Source [id number] Hyperlipid emia, mixed Problem [facility] [id number] Anxiety Problem [facility] [id number] Body mass index [BMI] 31.0-31.9, adult Problem [facility] [id number] Other obesity due to excess calories Problem [facility] [id number] Insomnia, unspecifie d type Problem [facility] Gastroesop hageal reflux disease without esophagiti s Gastroesop hageal reflux disease without esophagiti s Problem [facility] Hyperlipid emia Hyperlipid emia due to dietary fat intake Problem [facility] [id number] Osteoarthr itis of multiple joints, unspecifie d osteoarthr itis type Problem [facility] Shoulder joint pain Pain in right shoulder Problem [facility] Allergic rhinitis Allergic rhinitis Problem [facility] Candidiasi s of skin Candidiasi s of skin Problem [facility] [id number] Hyperlipid emia due to dietary fat intake Problem [facility] Hypothyroi dism Hypothyroi dism Problem [facility] Essential hypertensi on Benign essential HTN Problem [facility] Prediabete s Prediabete s Problem [facility] [id number] Other chronic pain Problem [facility] [id number] Chronic fatigue Problem [facility] [id number] History of cervical cancer Problem [facility] [id number] Primary osteoarthr itis of right knee Problem [facility] Social History Social Habit Start Date Stop Date Quantity Comments Source History of Tobacco Use [facility] Sex Assigned At [facility] Smoking Status Start Date Stop Date Source Never Smoker [facility] Medications Ordered Medication Name Filled Medication Name Start Date Stop Date Current Medication? Ordering Clinician Indication Dosage Frequency Signature (SIG) Comments Components Source Losartan Potassium-H CTZ 100-25 MG Losartan Potassium-H CTZ 100-25 MG 06-05 00:00: 00 No 1{table t} QD Losartan Potassium- HCTZ 100-25 MG Synvisc Synvisc 2023-05 00:00: 00 No 2mL [facility] Meloxicam 7.5 MG Meloxicam 7.5 MG 9-24 00:00: 00 No 1{table t} QD Meloxicam 7.5 MG BUPivacaine HCl BUPivacaine HCl 7-16 00:00: 00 No 4mL [facility] busPIRone HCl 10 MG busPIRone HCl 10 MG 6-06 00:00: 00 No 1{table t} busPIRone HCl 10 MG Bupivicaine [place] Bupivicaine [place] 2-25 00:00: 00 No 2.5mg [facility] Kenalog (Triamcinol one) Kenalog (Triamcinol one) 2017-05- 00:00: 00 No 40mg [facility] Verapamil HCl ER 120 MG Verapamil HCl ER 120 MG No 1{table t} Verapamil HCl ER 120 MG Levothyroxi ne Sodium 100 MCG Levothyroxi ne Sodium 100 MCG No QD Levothyrox ine Sodium 100 MCG Carvedilol 12.5 MG Carvedilol 12.5 MG No 1{table t_with_ food} BID Carvedilol 12.5 MG Ezetimibe 10 MG Ezetimibe 10 MG No 1{table t} QD Ezetimibe 10 MG Cetirizine HCl 10 MG Cetirizine HCl 10 MG No 1{table t} QD Cetirizine HCl 10 MG Omeprazole 40 MG Omeprazole 40 MG No Omeprazole 40 MG ProAir HFA 108 (90 Base) MCG/ACT ProAir HFA 108 (90 Base) MCG/ACT No 2{puffs _as_nee ded} ProAir HFA 108 (90 Base) MCG/ACT ZyrTEC Allergy 10 MG ZyrTEC Allergy 10 MG No 1{table t} QD ZyrTEC Allergy 10 MG Flonase 50 MCG/ACT Flonase 50 MCG/ACT No 2{spray _in_eac h_nostr il} QD Flonase 50 MCG/ACT Immunizations Ordered Immunization Name Filled Immunization Name Date Status Comments Source Prevnar 13 -Pneumonia Vaccine Prevnar 13 -Pneumonia Vaccine 2017-07-27 12:43:00 Completed [facility] Prevnar 13 -Pneumonia Vaccine Prevnar 13 -Pneumonia Vaccine 2017-07-27 12:43:00 Completed [facility] Prevnar 13 -Pneumonia Vaccine Prevnar 13 -Pneumonia Vaccine 2017-07-27 12:43:00 Completed [facility] Prevnar 13 -Pneumonia Vaccine Prevnar 13 -Pneumonia Vaccine 2017-07-27 12:43:00 Completed [facility] Prevnar 13 -Pneumonia Vaccine Prevnar 13 -Pneumonia Vaccine 2017-07-27 12:43:00 Completed [facility] Moderna COVID-19 Vaccine, Bivalent Moderna COVID-19 Vaccine, Bivalent Unknown Completed [facility] Prevnar 20 (PCV20) Prevnar 20 (PCV20) Unknown Completed [facility] Shingrix Shingrix Unknown Completed [facility] Prevnar 13 -Pneumonia Vaccine Prevnar 13 -Pneumonia Vaccine Unknown Completed [facility] Moderna COVID-19 Vaccine, Bivalent Moderna COVID-19 Vaccine, Bivalent Unknown Completed [facility] Prevnar 20 (PCV20) Prevnar 20 (PCV20) Unknown Completed [facility] Shingrix Shingrix Unknown Completed [facility] Prevnar 13 -Pneumonia Vaccine Prevnar 13 -Pneumonia Vaccine Unknown Completed [facility] Moderna COVID-19 Vaccine, Bivalent Moderna COVID-19 Vaccine, Bivalent Unknown Completed [facility] Prevnar 20 (PCV20) Prevnar 20 (PCV20) Unknown Completed [facility] Shingrix Shingrix Unknown Completed [facility] Prevnar 13 -Pneumonia Vaccine Prevnar 13 -Pneumonia Vaccine Unknown Completed [facility] Moderna COVID-19 Vaccine, Bivalent Moderna COVID-19 Vaccine, Bivalent Unknown Completed [facility] Prevnar 20 (PCV20) Prevnar 20 (PCV20) Unknown Completed [facility] Shingrix Shingrix Unknown Completed [facility] Prevnar 13 -Pneumonia Vaccine Prevnar 13 -Pneumonia Vaccine Unknown Completed [facility] Moderna COVID-19 Vaccine, Bivalent Moderna COVID-19 Vaccine, Bivalent Unknown Completed [facility] Prevnar 20 (PCV20) Prevnar 20 (PCV20) Unknown Completed [facility] Shingrix Shingrix Unknown Completed [facility] Prevnar 13 -Pneumonia Vaccine Prevnar 13 -Pneumonia Vaccine Unknown Completed [facility] Moderna COVID-19 Vaccine, Bivalent Moderna COVID-19 Vaccine, Bivalent Unknown Completed [facility] Prevnar 20 (PCV20) Prevnar 20 (PCV20) Unknown Completed [facility] Shingrix Shingrix Unknown Completed [facility] Prevnar 13 -Pneumonia Vaccine Prevnar 13 -Pneumonia Vaccine Unknown Completed [facility] Moderna COVID-19 Vaccine, Bivalent Moderna COVID-19 Vaccine, Bivalent Unknown Completed [facility] Prevnar 20 (PCV20) Prevnar 20 (PCV20) Unknown Completed [facility] Shingrix Shingrix Unknown Completed [facility] Prevnar 13 -Pneumonia Vaccine Prevnar 13 -Pneumonia Vaccine Unknown Completed [facility] Moderna COVID-19 Vaccine, Bivalent Moderna COVID-19 Vaccine, Bivalent Unknown Completed [facility] Prevnar 20 (PCV20) Prevnar 20 (PCV20) Unknown Completed [facility] Shingrix Shingrix Unknown Completed [facility] Prevnar 13 -Pneumonia Vaccine Prevnar 13 -Pneumonia Vaccine Unknown Completed [facility] Moderna COVID-19 Vaccine, Bivalent Moderna COVID-19 Vaccine, Bivalent Unknown Completed [facility] Prevnar 20 (PCV20) Prevnar 20 (PCV20) Unknown Completed [facility] Shingrix Shingrix Unknown Completed [facility] Prevnar 13 -Pneumonia Vaccine Prevnar 13 -Pneumonia Vaccine Unknown Completed [facility] Moderna COVID-19 Vaccine, Bivalent Moderna COVID-19 Vaccine, Bivalent Unknown Completed [facility] Prevnar 20 (PCV20) Prevnar 20 (PCV20) Unknown Completed [facility] Shingrix Shingrix Unknown Completed [facility] Prevnar 13 -Pneumonia Vaccine Prevnar 13 -Pneumonia Vaccine Unknown Completed [facility] Moderna COVID-19 Vaccine, Bivalent Moderna COVID-19 Vaccine, Bivalent Unknown Completed [facility] Prevnar 20 (PCV20) Prevnar 20 (PCV20) Unknown Completed [facility] Shingrix Shingrix Unknown Completed [facility] Prevnar 13 -Pneumonia Vaccine Prevnar 13 -Pneumonia Vaccine Unknown Completed [facility] Vital Signs Vital Name Observation Time Observation Value Comments S lakeisha height 2024-06-22 15:30:00 66.00 [in_i] Com [facility] weight 2024-06-22 15:30:00 198.4 [lb_av] Co [facility] temperature 2024-06-22 15:30:00 97.6 [degF] Com [facility] bmi 2024-06-22 15:30:00 32.02 kg/m2 Comm on [facility] oximetry 2024-06-22 15:30:00 93 % Commo n [facility] respiratory rate 2024-06-22 15:30:00 16 /min [facility] blood pressure systolic 2024-06-22 15:30:00 132 mm[Hg] [facility] blood pressure diastolic 2024-06-22 15:30:00 78 mm[Hg] [facility] height 2024-06-05 15:00:00 66.00 [in_i] Com [facility] weight 2024-06-05 15:00:00 200.0 [lb_av] Co [facility] temperature 2024-06-05 15:00:00 97.2 [degF] Com [facility] bmi 2024-06-05 15:00:00 32.28 kg/m2 Comm on [facility] oximetry 2024-06-05 15:00:00 95 % Commo n [facility] respiratory rate 2024-06-05 15:00:00 16 /min Common [facility] blood pressure systolic 2024-06-05 15:00:00 153 mm[facility]Hg[facility] pressure diastolic 2024-06-05 15:00:00 70 mm[Hg] [facility] height 2024-04-11 15:00:00 66.00 [in_i] Com [facility] weight 2024-04-11 15:00:00 195 [lb_av] Comm on [facility] temperature 2024-04-11 15:00:00 97.4 [degF] Com [facility] bmi 2024-04-11 15:00:00 31.47 kg/m2 Comm on [facility] blood pressure systolic 2024-04-11 15:00:00 142 mm[Hg] [facility] blood pressure diastolic 2024-04-11 15:00:00 68 mm[Hg] Common [facility] height 2024-04-04 15:00:00 66.00 [in_i] Com [facility] weight 2024-04-04 15:00:00 195 [lb_av] Comm on [facility] temperature 2024-04-04 15:00:00 98.4 [degF] Com [facility] bmi 2024-04-04 15:00:00 31.47 kg/m2 Comm on [facility] blood pressure systolic 2024-04-04 15:00:00 130 mm[Hg] [facility] blood pressure diastolic 2024-04-04 15:00:00 80 mm[Hg] [facility] height 2024-03-28 15:00:00 66.00 [in_i] Com [facility] weight 2024-03-28 15:00:00 195 [lb_av] Comm on [facility] temperature 2024-03-28 15:00:00 98.6 [degF] Com [facility] bmi 2024-03-28 15:00:00 31.47 kg/m2 Comm on [facility] blood pressure systolic 2024-03-28 15:00:00 132 mm[Hg] Common [facility] blood pressure diastolic 2024-03-28 15:00:00 78 mm[Hg] Common [facility] height 2024-02-22 09:20:00 66.00 [in_i] Com [facility] weight 2024-02-22 09:20:00 195.4 [lb_av] Co on [facility] temperature 2024-02-22 09:20:00 97.4 [degF] Com [facility] bmi 2024-02-22 09:20:00 31.53 kg/m2 Comm on [facility] oximetry 2024-02-22 09:20:00 97 % Commo n [facility] blood pressure systolic 2024-02-22 09:20:00 132 mm[Hg] Common [facility] blood pressure diastolic 2024-02-22 09:20:00 74 mm[Hg] Common [facility] height 2024-02-22 09:20:00 66.00 [in_i] Com [facility] weight 2024-02-22 09:20:00 195.4 [lb_av] Co [facility] temperature 2024-02-22 09:20:00 97.4 [degF] Com [facility] bmi 2024-02-22 09:20:00 31.53 kg/m2 Comm on [facility] oximetry 2024-02-22 09:20:00 97 % Commo n [facility] blood pressure systolic 2024-02-22 09:20:00 132 mm[Hg] [facility] blood pressure diastolic 2024-02-22 09:20:00 74 mm[Hg] Common [facility] height 2024-02-22 09:10:00 66.00 [in_i] Com [facility] weight 2024-02-22 09:10:00 195.4 [lb_av] Co mmon [facility] temperature 2024-02-22 09:10:00 97.4 [degF] Com [facility] bmi 2024-02-22 09:10:00 31.53 kg/m2 Comm on [facility] oximetry 2024-02-22 09:10:00 97 % Commo n [facility] blood pressure systolic 2024-02-22 09:10:00 132 mm[Hg] [facility] blood pressure diastolic 2024-02-22 09:10:00 74 mm[Hg] Common [facility] height 2024-02-22 13:15:00 66.00 [in_i] Com [facility] weight 2024-02-22 13:15:00 195 [lb_av] Comm on [facility] temperature 2024-02-22 13:15:00 98.0 [degF] Com [facility] bmi 2024-02-22 13:15:00 31.47 kg/m2 Comm on [facility] blood pressure systolic 2024-02-22 13:15:00 130 mm[Hg] [facility] blood pressure diastolic 2024-02-22 13:15:00 84 mm[Hg] Common [facility] height 2023-12-14 09:00:00 66.00 [in_i] Com [facility] weight 2023-12-14 09:00:00 190 [lb_av] Comm on [facility] temperature 2023-12-14 09:00:00 98.5 [degF] Com [facility] bmi 2023-12-14 09:00:00 30.66 kg/m2 Comm on [facility] blood pressure systolic 2023-12-14 09:00:00 130 mm[Hg] Common [facility] blood pressure diastolic 2023-12-14 09:00:00 78 mm[Hg] [facility] height 2023-11-16 09:20:00 66.00 [in_i] Com [facility] weight 2023-11-16 09:20:00 197.4 [lb_av] Co [facility] temperature 2023-11-16 09:20:00 98 [degF] Comm on [facility] bmi 2023-11-16 09:20:00 31.86 kg/m2 Comm on [facility] oximetry 2023-11-16 09:20:00 95 % Commo n [facility] blood pressure systolic 2023-11-16 09:20:00 130 mm[Hg] [facility] blood pressure diastolic 2023-11-16 09:20:00 72 mm[Hg] [facility] height 2023-06-18 08:40:00 66.00 [in_i] Com [facility] weight 2023-06-18 08:40:00 196.6 [lb_av] Co mmon [facility] temperature 2023-06-18 08:40:00 97.8 [degF] Com [facility] bmi 2023-06-18 08:40:00 31.73 kg/m2 Comm on [facility] oximetry 2023-06-18 08:40:00 97 % Commo n [facility] blood pressure systolic 2023-06-18 08:40:00 130 mm[Hg] [facility] blood pressure diastolic 2023-06-18 08:40:00 70 mm[Hg] [facility] height 2023-02-17 09:20:00 66.00 [in_i] Com [facility] weight 2023-02-17 09:20:00 191.0 [lb_av] Co mmon [facility] temperature 2023-02-17 09:20:00 98.1 [degF] Com [facility] bmi 2023-02-17 09:20:00 30.82 kg/m2 Comm on [facility] oximetry 2023-02-17 09:20:00 94 % Commo n [facility] respiratory rate 2023-02-17 09:20:00 17 /min [facility] blood pressure systolic 2023-02-17 09:20:00 136 mm[Hg] [facility] blood pressure diastolic 2023-02-17 09:20:00 72 mm[Hg] [facility] height 2022-11-17 09:50:00 66.00 [in_i] Com [facility] weight 2022-11-17 09:50:00 196.4 [lb_av] Co mmon [facility] temperature 2022-11-17 09:50:00 97.8 [degF] Com [facility] bmi 2022-11-17 09:50:00 31.7 kg/m2 Commo n [facility] oximetry 2022-11-17 09:50:00 95 % Commo n [facility] respiratory rate 2022-11-17 09:50:00 16 /min Common [facility] blood pressure systolic 2022-11-17 09:50:00 137 mm[Hg] [facility] blood pressure diastolic 2022-11-17 09:50:00 68 mm[Hg] [facility] height 2022-11-17 10:00:00 66.00 [in_i] Com [facility] weight 2022-11-17 10:00:00 196.4 [facility]17 10:00:00 97.8 [degF] Com [facility] bmi 2022-11-17 10:00:00 31.7 kg/m2 Commo n [facility] oximetry 2022-11-17 10:00:00 95 % Commo n [facility] respiratory rate 2022-11-17 10:00:00 16 /min [facility] blood pressure systolic 2022-11-17 10:00:00 137 mm[Hg] [facility] blood pressure diastolic 2022-11-17 10:00:00 68 mm[Hg] Common [facility] height 2022-08-17 09:00:00 66.00 [in_i] Com [facility] weight 2022-08-17 09:00:00 193.4 [lb_av] Co mmon [facility] temperature 2022-08-17 09:00:00 97.2 [degF] Com [facility] bmi 2022-08-17 09:00:00 31.21 kg/m2 Comm on [facility] oximetry 2022-08-17 09:00:00 97 % Commo n [facility] respiratory rate 2022-08-17 09:00:00 17 /min Common [facility] blood pressure systolic 2022-08-17 09:00:00 117 mm[Hg] Common [facility] blood pressure diastolic 2022-08-17 09:00:00 61 mm[Hg] Common [facility] Encounters Start Date/Time End Date/Time Encounter Type Admission Type Attending [facility] Care Department Encounter ID Source 2024-06-05 07:53:00 Outpatient Elvis Hawk [facility] [id number] [facility] 2024-02-24 12:26:00 Outpatient Hawk, Elvis [facility] [id number] [facility] 2024-02-21 10:50:00 Outpatient Hawk, Elvis [facility] [id number] [facility] 2023-12-14 08:53:00 Outpatient Hawk, Elvis [facility] [id number] [facility] 2023-11-18 15:43:00 Outpatient Hawk, Elvis [facility] [id number] [facility] 2023-11-15 09:44:00 Outpatient Hawk, Elvis [facility] [id number] [facility] 2023-06-22 17:01:00 Outpatient Hawk, Elvis [facility] [id number] [facility] 2023-02-17 09:09:00 Outpatient Hawk, Elvis [facility] [id number] [facility] 2022-08-05 09:33:00 Outpatient Hawk, Elvis [facility] [id number] [facility] 2022-05-28 16:11:00 Outpatient SHANNON Na STLMLC STLMLC [id number] [facility] 2021-10-30 15:29:00 Outpatient Ortega, Na STLMLC STLMLC [id number] [facility] 2021-06-25 14:39:16 Outpatient Shannon Na STLMLC STLMLC [id number] [facility] 2021-06-25 13:26:23 Outpatient Shannon Na STLMLC STLMLC [id number] [facility] 2021-06-25 12:46:19 Outpatient Shannon Na STLMLC STLMLC [id number] [facility] 2021-06-25 12:45:14 Outpatient Ortega, Na STLMLC STLMLC [id number] [facility] 2021-06-25 12:44:48 Outpatient Ortega, Na STLMLC STLMLC [id number] [facility] 2021-06-25 12:42:24 Outpatient Ortega, Na STLMLC STLMLC [id number] [facility] 2021-06-25 12:33:38 Outpatient Ortega, Na STLMLC STLMLC [id number] [facility] 2021-06-25 12:32:40 Outpatient Ortega, Na STLMLC STLMLC [id number] [facility] 2021-06-25 12:32:07 Outpatient Ortega, Na STLMLC STLMLC [id number] [facility] 2021-06-25 12:25:42 Outpatient Ortega, Na STLMLC STLMLC [id number] [facility] 2021-06-25 12:11:27 Outpatient Ortega, Na STLMLC STLMLC [id number] [facility] 2021-06-25 11:50:19 Outpatient Ortega, Na STLMLC STLMLC [id number] [facility] 2021-06-25 11:49:34 Outpatient Ortega, Na STLMLC STLMLC [id number] [facility] 2021-06-25 11:49:06 Outpatient Ortega, Na STLMLC STLMLC [id number] [facility] 2021-06-25 11:12:13 Outpatient Ortega, Na STLMLC STLMLC [id number] [facility] 2021-06-25 11:02:24 Outpatient Ortega, Na STLMLC STLMLC [id number] [facility] 2021-06-25 11:01:59 Outpatient Delphine Ortega STLMLC STLC [id number] [facility] 2024-06-22 00:00:00 2024-06-22 00:00:00 OFFICE VISIT ESTAB PT LEVEL 4 STLMLC STLMLC [id number] [facility] 2024-06-05 00:00:00 2024-06-05 00:00:00 OFFICE VISIT ESTAB PT LEVEL 5 STLMLC STLC [id number] [facility] 2024-05-09 16:00:00 2024-05-09 16:00:00 Outpatient JANETT BOONE [id number] [facility] 2024-05-05 00:00:00 2024-05-05 00:00:00 (TEL) STLMLC STLC [id number] [facility] 2024-04-11 00:00:00 2024-04-11 00:00:00 (IN/ASP) INJ ASP STLMLC STLMLC [id number] [facility] 2024-04-04 00:00:00 2024-04-04 00:00:00 (IN/ASP) INJ ASP STLMLC STLMLC [id number] [facility] 2024-03-28 00:00:00 2024-03-28 00:00:00 (F/U) Follow Up Visit STLMLC STLMLC [id number] [facility] 2024-02-22 00:00:00 2024-02-22 00:00:00 OFFICE VISIT ESTAB PT LEVEL 4 STLMLC STLMLC [id number] [facility] 2024-02-22 00:00:00 2024-02-22 00:00:00 SUB ANNUAL [facility] VISIT STLMLC STLC [id number] [facility] 2024-02-22 00:00:00 2024-02-22 00:00:00 OFFICE VISIT ESTAB PT LEVEL 4 STLMLC STLMLC [id number] [facility] 2024-02-22 00:00:00 2024-02-22 00:00:00 (TEL) STLMLC STLMLC [id number] [facility] 2023-12-27 00:00:00 2023-12-27 00:00:00 (TEL) STLMLC STLMLC [id number] [facility] 2023-12-14 00:00:00 2023-12-14 00:00:00 OFFICE VISIT NEW PT LEVEL 4 STLMLC STLMLC [id number] [facility] 2023-11-16 00:00:00 2023-11-16 00:00:00 OFFICE VISIT ESTAB PT LEVEL 4 STLMLC STLMLC [id number] [facility] 2023-06-22 00:00:00 2023-06-22 00:00:00 (TEL) STLMLC STLMLC [id number] [facility] 2023-06-18 00:00:00 2023-06-18 00:00:00 OFFICE VISIT ESTAB PT LEVEL 4 STLMLC STLMLC [id number] [facility] 2023-03-29 00:00:00 2023-03-29 00:00:00 Outpatient GC_[email or web address] diyala_S [facility] [id number] [facility] 2023-02-17 00:00:00 2023-02-17 00:00:00 OFFICE VISIT ESTAB PT LEVEL 3 STLMLC STLMLC [id number] [facility] 2022-11-17 00:00:00 2022-11-17 00:00:00 OFFICE VISIT ESTAB PT LEVEL 4 STLMLC STLMLC [id number] [facility] 2022-11-17 00:00:00 2022-11-17 00:00:00 SUB ANNUAL [facility] VIS[facility] STLMLC STLMLC [id number] [facility] 2022-09-29 00:00:00 2022-09-29 00:00:00 (TEL) STLMLC STLMLC [id number] [facility] 2022-09-08 00:00:00 2022-09-08 00:00:00 (TEL) STLMLC STLMLC [id number] [facility] 2022-08-17 00:00:00 2022-08-17 00:00:00 OFFICE VISIT ESTAB PT LEVEL 4 STLMLC STLMLC [id number] [facility] 2022-08-05 00:00:00 2022-08-05 00:00:00 (TEL) STLMLC STLMLC [id number] [facility] 2022-07-31 00:00:00 2022-07-31 00:00:00 (TEL) STLMLC STLMLC [id number] [facility] 2022-06-22 00:00:00 2022-06-22 00:00:00 (TEL) STLMLC STLMLC [id number] [facility] 2022-04-14 00:00:00 2022-04-14 00:00:00 (TEL) STLMLC STLMLC [id number] [facility] 2022-02-05 00:00:00 2022-02-05 00:00:00 OL DIG E/M SVC 11-20 MIN STLMLC STLMLC [id number] [facility] 2021-11-03 00:00:00 2021-11-03 00:00:00 OL DIG E/M SVC 11-20 MIN STLMLC STLMLC [id number] [facility] 2021-10-13 00:00:00 2021-10-13 00:00:00 (TEL) STLMLC STLMLC [id number] [facility] 2021-09-30 00:00:00 2021-09-30 00:00:00 (TEL) STLMLC STLMLC [id number] [facility] 2021-07-16 00:00:00 2021-07-16 00:00:00 (TEL) STLMLC STLMLC [id number] [facility] 2021-04-21 00:00:00 2021-04-21 00:00:00 (TEL) STLMLC STLMLC [id number] [facility] 2020-12-18 00:00:00 2020-12-18 00:00:00 Outpatient STLMLC STLMLC [id number] [facility] 2020-12-05 00:00:00 2020-12-05 00:00:00 Outpatient STLMLC STLMLC [id number] [facility] 2020-08-26 00:00:00 2020-08-26 00:00:00 Outpatient STLMLC STLMLC [id number] [facility] 2020-07-25 00:00:00 2020-07-25 00:00:00 Outpatient STLMLC STLMLC [id number] [facility] 2020-07-19 00:00:00 2020-07-19 00:00:00 Outpatient STLMLC STLMLC [id number] [facility] 2020-06-25 00:00:00 2020-06-25 00:00:00 Outpatient STLMLC STLMLC [id number] [facility] 2020-02-28 00:00:00 2020-02-28 00:00:00 Outpatient STLMLC STLMLC [id number] [facility] 2020-02-27 00:00:00 2020-02-27 00:00:00 Outpatient STLMLC STLMLC [id number] [facility] 2019-11-06 08:40:00 2019-11-06 08:40:[address] [facility] [id number] [facility] 2019-08-04 10:00:00 2019-08-04 10:00:00 [facility] [id number] [facility] 2019-08-04 09:00:00 2019-08-04 09:00:00 [facility] [id number] [facility] 2019-06-23 10:59:00 2019-06-23 10:59:00 [facility] [id number] [facility] 2019-06-22 13:20:00 2019-06-22 13:20:00 [facility] [id number] [facility] 2018-12-19 08:03:00 2018-12-19 08:03:00 [facility] [place] [facility] [id number] [facility] 2018-12-05 08:00:00 2018-12-05 08:00:00 [facility] [place] [id number] [facility] 2018-08-10 10:15:00 2018-08-10 10:15:00 [facility] [id number] [facility] 2018-04-11 11:00:00 2018-04-11 11:00:00 [facility] Medicine [id number] [facility] 2017-10-26 09:15:00 2017-10-26 09:15:[address] [facility] [facility] [id number] [facility] Results Test Description Test Time Test Comments Results Result Co mments Source CBC W/AUTO [id number] 00:00:00* Test Item Value Reference Range Interpretation Comme nts NUCLEATED RBCS (test code = 68839-3) 0.0 /100 WBC'S See_Comment [Automated Skin [employer]] The system which generated this result transmitted reference range: 0.0 /100 WBC'S. The reference range was not used to interpret this result as normal/abnormal. ABSOLUTE EOSINOPHILS (test code = 53360-4) 0.40 K/UL See_Comment [Automated Skin [employer]] The system which generated this result transmitted reference range: 0.00-0.50 K/UL. The reference range was not used to interpret this result as normal/abnormal. ABSOLUTE LYMPHOCYTES (test code = 95208-4) 2.86 K/UL See_Comment [Automated messa ge] The system which generated this result transmitted reference range: 1.00-4.00 K/UL. The reference range was not used to interpret this result as normal/abnormal. ABSOLUTE MONOCYTES (test code = 42985-3) 0.76 K/UL See_Comment [Automated messa ge] The system which generated this result transmitted reference range: 0.20-1.00 K/UL. The reference range was not used to interpret this result as normal/abnormal. ABSOLUTE NEUTROPHILS (test code = 92750-8) 5.04 K/UL See_Comment [Automated messa ge] The system which generated this result transmitted reference range: 1.50-7.50 K/UL. The reference range was not used to interpret this result as normal/abnormal. BASOPHILS (test code = 47454-9) 1.0 % EOSINOPHILS (test code = 27586-7) 4.4 % HEMATOCRIT (test code = 97592-3) 47.0 % See_Comment H [Automated messa ge] The system which generated this result transmitted reference range: 34.0-45.0 %. The reference range was not used to interpret this result as normal/abnormal. HEMOGLOBIN (test code = 718-7) 15.3 G/DL See_Comment [Automated messa ge] The system which generated this result transmitted reference range: 11.5-15.5 G/DL. The reference range was not used to interpret this result as normal/abnormal. LYMPHOCYTES (test code = 26208-8) 31.1 % MCH (test code = 40497-8) 28.9 PG See_Comment [Automated messa ge] The system which generated this result transmitted reference range: 25.0-33.0 PG. The reference range was not used to interpret this result as normal/abnormal. MCHC (test code = 34242-4) 32.6 G/DL See_Comment [Automated messa ge] The system which generated this result transmitted reference range: 31.0-36.0 G/DL. The reference range was not used to interpret this result as normal/abnormal. MCV (test code = 59480-9) 88.7 fL See_Comment [Automated messa ge] The system which generated this result transmitted reference range: 80.0-99.0 fL. The reference range was not used to interpret this result as normal/abnormal. MONOCYTES (test code = 77616-3) 8.3 % NEUTROPHILS (test code = 96185-9) 54.8 % PLATELET COUNT (test code = 42369-2) 325 K/UL See_Comment [Automated messa ge] The system which generated this result transmitted reference range: 130-400 K/UL. The reference range was not used to interpret this result as normal/abnormal. RBC (test code = 28570-3) 5.30 M/UL See_Comment [Automated messa ge] The system which generated this result transmitted reference range: 3.80-5.40 M/UL. The reference range was not used to interpret this result as normal/abnormal. RDW (test code = 85690-8) 13.1 % See_Comment [Automated messa ge] The system which generated this result transmitted reference range: 11.5-15.0 %. The reference range was not used to interpret this result as normal/abnormal. WBC (test code = 06700-3) 9.2 K/UL See_Comment [Automated messa ge] The system which generated this result transmitted reference range: 3.5-11.0 K/UL. The reference range was not used to interpret this result as normal/abnormal.
[2024-07-17] MEDS ORDERED: IBUPROFEN 400 MG TAB ONE (12:05)
[2024-07-17] MEDS ORDERED: HYDROCODONE/APAP 5/325 MG TAB ONE (12:05)
--- NOTE | 2024-07-17 12:29 | RAD REPORT ---
EXAM: XR Knee Right 2 View HISTORY: [facility]LL[facility] Bed Name: 12 COMPARISON: None TECHNIQUE: 3 views of the right knee were obtained. FINDINGS: Mild knee effusion is seen. There is no evidence of acute fracture or dislocation. Entheso sarwat at the quadriceps tendon attachment. Mild degenerative changes particularly along the medial weightbearing compartment. IMPRESSION: No evidence of acute osseous abnormality. Mild joint effusion.
--- NOTE | 2024-07-17 13:09 | EDPHYS ---
Physician Documentation [facility] Name: Ismael Weinberg Age: 73 yrs Sex: Female : 1950 Arrival Date: 07/17/2024 Time: 11:13 Bed 12 Private MD: ED Physician Fe Her HPI: 07/17 13:24 This 73 yrs old Female presents to ER via Wheelchair with complaints of Knee gb1 Pain, Knee swelling. Historical: - Allergies: : No Known Allergies; ko1 - PMHx: 11: Hypertension; Hypothyroidism; ko1 - PSHx: 11:23 Cholecystectomy; section; ko1 - Immunization history:: Adult Immunizations unknown. - Infectious Disease History:: Denies. - Social history:: Smoking status: Patient denies any tobacco usage or history of. Exam: 13:24 Constitutional: This is a well developed, well nourished patient who is awake, alert, gb1 and in no acute distress. Head/Face: Normocephalic, atraumatic. Eyes: Pupils equal round and reactive to light, extra-ocular motions intact. Lids and lashes normal. Conjunctiva and sclera are non-icteric and not injected. Cornea within normal limits. Periorbital areas with no swelling, redness, or edema. ENT: Nares patent. No nasal discharge, no septal abnormalities noted. Tympanic membranes are normal and external auditory canals are clear. Oropharynx with no redness, swelling, or masses, exudates, or evidence of obstruction, uvula midline. Mucous membranes moist. Neck: Trachea midline, no thyromegaly or masses palpated, and no cervical lymphadenopathy. Supple, full range of motion without nuchal rigidity, or vertebral point tenderness. No Meningismus. Chest/axilla: Normal chest wall appearance and motion. Nontender with no deformity. No lesions are appreciated. Cardiovascular: Regular rate and rhythm with a normal S1 and S2. No gallops, murmurs, or rubs. Normal PMI, no JVD. No pulse deficits. Respiratory: Lungs have equal breath sounds bilaterally, clear to auscultation and percussion. No rales, rhonchi or wheezes noted. No increased work of breathing, no retractions or nasal flaring. Abdomen/GI: Soft, non-tender, with normal bowel sounds. No distension or tympany. No guarding or rebound. No evidence of tenderness throughout. Back: No spinal tenderness. No costovertebral tenderness. Full range of motion. Skin: Warm, dry with normal turgor. Normal color with no rashes, no lesions, and no evidence of cellulitis. MS/ Extremity: Pulses equal, no cyanosis. Neurovascular intact. Decreased range of motion of the right knee secondary to swelling and pain. There is no bony deformity. Generally tender on the right kneecap. Vital Signs: 11:19 BP 139 / 61; Pulse 64; Resp 16; Temp 97.7; Pulse Ox 98% on R/A; ko1 MDM: 11:28 Medical Screening Exam initiated gb1 13:24 Data reviewed: vital signs, nurses notes, radiologic studies, plain films. ED course: gb1 73-year-old female with history of right and left knee osteoarthritis right greater than left. Patient with localized knee swelling not consistent with septic joint or fracture dislocation. Patient's x-ray does show a small effusion in the knee joint. She does have signs symptoms also on exam consistent with x-ray findings of osteoarthritis. I recommended localized PT for the right knee as well as anti-inflammatory ibuprofen 800s as well as tramadol for breakthrough pain. Patient follows closely with Dr. Radford and will follow-up for instructions for evaluation and consider MRI of the right knee.. 07/17 11:28 Order name: Knee Right 2 View XRAY; Complete Time: 12:44 gb1 Administered Medications: 12:15 Drug: Ibuprofen PO 800 mg PO once Route: PO; ko1 13:38 Follow up: Response: No adverse reaction ss 12:15 Drug: HYDROcodone-acetaminophen PO 5 mg-325 mg 1 tabs PO once Route: PO; ko1 13:37 Follow up: Response: No adverse reaction; Pain is decreased ss Disposition Summary: 07/17/24 13:08 Discharge Ordered Notes: Location: Home gb1 Condition: Stable gb1 Diagnosis - Osteoarthritis of knee, unspecified gb1 - Effusion, right knee gb1 Followup: gb1 - With: Drew Radford MD - When: 1 - 2 days - Reason: Wound Recheck Discharge Instructions: - Discharge Summary Sheet gb1 - Knee Effusion gb1 - Osteoarthritis gb1 Forms: - Medication Reconciliation Form gb1 - Antibiotic Education gb1 - Prescription Opioid Use gb1 - Patient Portal Instructions gb1 - Leadership Thank You Letter gb1 Prescriptions: - Ibuprofen 800 mg Oral Tablet - take 1 tablet ORAL route every 8 hours As needed take with food; 30 tablet; gb1 Refills: 0, Product Selection Permitted - Tramadol 50 mg Oral tablet - take 0.5 tablet ORAL route At bedtime as needed; 12 tablet; Refills: 0, Product gb1 Selection Permitted Signatures: Dispatcher [employer] Lizeth Li RN RN ko1 Fe Her MD MD gb1 Stephanie Castrejon RN ss
--- NOTE | 2024-07-17 13:09 | ER ---
Nurse's Notes [facility] Name: Ismael Weinberg Age: 73 yrs Sex: Female : 1950 Arrival Date: 07/17/2024 Time: 11:13 Bed 12 Private MD: Diagnosis: Osteoarthritis of knee, unspecified;Effusion, right knee Presentation: 07/17 11:19 Chief complaint: Patient states: right knee pain--saw Dr Radford 2 months ago and received ko1 injections, has been ok until today. Coronavirus screen: At this time, the client does not indicate any symptoms associated with coronavirus-19. Ebola Screen: No symptoms or risks identified at this time. Initial Sepsis Screen: Does the patient meet any 2 criteria? No. Patient's initial sepsis screen is negative. Does the patient have a suspected source of infection? No. Patient's initial sepsis screen is negative. Risk Assessment: Do you want to hurt yourself or someone else? Patient reports no desire to harm self or others. Onset of symptoms was July 17, 2024. 11:19 Method Of Arrival: Wheelchair ko1 11:19 Acuity: JEROME 4 ko1 Triage Assessment: 11:23 General: Appears in no apparent distress. Behavior is calm, cooperative, appropriate ko1 for age. Pain: Complains of pain in right knee. Historical: - Allergies: 11:23 No Known Allergies; ko1 - PMHx: 11:23 Hypertension; Hypothyroidism; ko1 - PSHx: 11:23 Cholecystectomy; section; ko1 - Immunization history:: Adult Immunizations unknown. - Infectious Disease History:: Denies. - Social history:: Smoking status: Patient denies any tobacco usage or history of. Vital Signs: 11:19 BP 139 / 61; Pulse 64; Resp 16; Temp 97.7; Pulse Ox 98% on R/A; ko1 ED Course: :17 Patient arrived in ED. mr 11:23 Triage completed. ko1 11:23 Arm band placed on right wrist. Patient placed in an exam room, in a wheelchair, on ko1 pulse oximetry, Patient notified of wait time. 11:24 Fe Her MD is Attending Physician. gb1 12:03 Knee Right 2 View XRAY In Process Unspecified. EDMS 13:08 Drew Radford MD is Referral Physician. gb1 13:38 No provider procedures requiring assistance completed. Patient did not have IV access ss during this emergency room visit. Administered Medications: 12:15 Drug: Ibuprofen PO 800 mg PO once Route: PO; ko1 13:38 Follow up: Response: No adverse reaction ss 12:15 Drug: HYDROcodone-acetaminophen PO 5 mg-325 mg 1 tabs PO once Route: PO; ko1 13:37 Follow up: Response: No adverse reaction; Pain is decreased ss Outcome: 13:08 Discharge ordered by . gb1 13:38 Discharged to home ambulatory, ss 13:38 Condition: good 13:38 Discharge instructions given to patient, family, Instructed on discharge instructions, follow up and referral plans. medication usage, Demonstrated understanding of instructions, follow-up care, medications, Prescriptions given X 2, 13:39 Patient left the ED. ss Signatures: Dispatcher [employer] EDCT Veronica Gusman, Omar Reg Stephanie Laughlin RN RN ss Lizeth Ziegler RN RN ko1 Fe Her MD MD gb1
[2024-07-17 13:43] VITALS: BP 139/61; TEMP 97.7; O2SAT 98
== END 2024-07-17 13:39 | disposition home or self-care (01) ==
LOC: ER 11:13
DX: M17.11 Unilateral primary osteoarthritis, right knee (principal); M25.461 Effusion, right knee
CPT/HCPCS: 99283

== ENCOUNTER 2025-02-17 06:40 | Emergency (ER) | payer OTHER ==
--- OUTSIDE RECORDS SUMMARY | 2025-02-17 06:45 | XMS REPORT | Continuity of Care Document ---
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 Role Phone Elvis Hawk Attending Clinician Unavailable Delphine ORTEGA Attending Clinician Unavailable JANETT BOONE Attending Clinician Unavailable ELVIS HAWK Admitting Clinician Unavailable Payers Payer Name Policy Type Policy Number Effective Date Expirati on Date Source [employer] MEDICARE 53 [id number] 2020 00:00:00 [facility] MEDICARE NOVITAS [id number] 2014 00:00:00 [facility] Problems Condition Name Condition Details Condition Category Status Onset Date Resolution Date Last Treatment Date Treating Clinician Comments Source [id number] Hyperlipid emia, mixed Problem [facility] [id number] Anxiety Problem [facility] [id number] Body mass index [BMI] 31.0-31.9, adult Problem [facility] [id number] Other obesity due to excess calories Problem [facility] [id number] Insomnia, unspecifie d type Problem [facility] Gastroesop hageal reflux disease without esophagiti s Gastroesop hageal reflux disease without esophagiti s Problem [facility] Hyperlipid emia Hyperlipid emia due to dietary fat intake Problem [facility] [id number] Osteoarthr itis of multiple joints, unspecifie d osteoarthr itis type Problem [facility] Shoulder joint pain Pain in right shoulder Problem [facility] Allergic rhinitis Allergic rhinitis Problem [facility] Candidiasi s of skin Candidiasi s of skin Problem [facility] [id number] Hyperlipid emia due to dietary fat intake Problem [facility] Hypothyroi dism Hypothyroi dism Problem [facility] Essential hypertensi on Benign essential HTN Problem [facility] Prediabete s Prediabete s Problem [facility] [id number] Other chronic pain Problem [facility] [id number] Chronic fatigue Problem [facility] [id number] History of cervical cancer Problem [facility] [id number] Primary osteoarthr itis of right knee Problem [facility] Social History [...] Losartan Potassium- HCTZ 100-25 MG Synvisc Synvisc 2023-05-12 00:00: 00 No 2mL [facility] Meloxicam 7.5 MG Meloxicam 7.5 MG 02-21 00:00: 00 No 1{table t} QD Meloxicam 7.5 MG BUPivacaine HCl BUPivacaine HCl 7-16 00:00: 00 No 4mL [facility] busPIRone HCl 10 MG busPIRone HCl 10 MG 6-06 00:00: 00 No 1{table t} busPIRone HCl 10 MG Bupivicaine [place] Bupivicaine [place] 2-25 00:00: 00 No 2.5mg [facility] Kenalog (Triamcinol one) Kenalog (Triamcinol one) 2017-05 1-12 00:00: 00 No 40mg [facility] Verapamil HCl ER 120 MG Verapamil HCl ER 120 MG No 1{table t} Verapamil HCl ER 120 MG Levothyroxi ne Sodium 100 MCG Levothyroxi ne Sodium 100 MCG No QD Levothyrox ine Sodium 100 MCG Carvedilol 12.5 MG Carvedilol 12.5 MG No 1{table t_with_ food} BID Carvedilol 12.5 MG Ezetimibe 10 MG Ezetimibe 10 MG No 1{table t} QD Ezetimibe 10 MG Omeprazole 40 MG Omeprazole 40 MG No Omeprazole 40 MG ProAir HFA 108 (90 Base) MCG/ACT ProAir HFA 108 (90 Base) MCG/ACT No 2{puffs _as_nee ded} ProAir HFA 108 (90 Base) MCG/ACT Flonase 50 MCG/ACT Flonase 50 MCG/ACT No 2{spray _in_eac h_nostr il} QD Flonase 50 MCG/ACT traMADol HCl 50 MG traMADol HCl 50 MG No traMADol HCl 50 MG Cetirizine HCl 10 MG Cetirizine HCl 10 MG No Cetirizine HCl 10 MG ZyrTEC Allergy 10 MG ZyrTEC Allergy 10 MG No 1{table t} QD ZyrTEC Allergy 10 MG Immunizations Ordered Immunization Name Filled Immunization Name Date Status Comments Source Prevnar 13 -Pneumonia Vaccine Prevnar 13 -Pneumonia Vaccine 2017-07-27 12:43:00 Completed [facility] Prevnar 13 -Pneumonia Vaccine Prevnar 13 -Pneumonia Vaccine 2017-07-27 12:43:00 [facility] Prevnar 13 -Pneumonia Vaccine Prevnar 13 -Pneumonia [facility] Sh[facility]rix Shingrix Unknown Completed [facility] Prevnar 13 -Pneumonia Vaccine Prevnar 13 -Pneumonia Vaccine Unknown Completed [facility] Moderna COVID-19 Vaccine, Bivalent Moderna COVID-19 Vaccine, Bivalent Unknown Completed [facility] Prevnar 20 (PCV20) Prevnar 20 (PCV20) Unknown Completed [facility] Shingrix Shingrix Unknown Completed [facility] Prevnar 13 -Pneumonia Vaccine Prevnar 13 -Pneumonia Vaccine Unknown Completed [facility] Moderna COVID-19 Vaccine, Bivalent Moderna COVID-19 Vaccine, Bivalent Unknown Completed [facility] Prevnar 20 (PCV20) Prevnar 20 (PCV20) Unknown Completed [facility] Shingrix Shingrix Unknown Completed [facility] Prevnar 13 -Pneumonia Vaccine Prevnar 13 -Pneumonia Vaccine Unknown Completed [facility] Moderna COVID-19 Vaccine, Bivalent Moderna COVID-19 Vaccine, Bivalent Unknown Completed [facility] Prevnar 20 (PCV20) Prevnar 20 (PCV20) Unknown Completed [facility] Shingrix Shingrix Unknown Completed [facility] Prevnar 13 -Pneumonia Vaccine Prevnar 13 -Pneumonia Vaccine Unknown Completed [facility] Moderna COVID-19 Vaccine, Bivalent Moderna COVID-19 Vaccine, Bivalent Unknown Completed [facility] Prevnar 20 (PCV20) Prevnar 20 (PCV20) Unknown Completed [facility] Shingrix Shingrix Unknown Completed [facility] Prevnar 13 -Pneumonia Vaccine Prevnar 13 -Pneumonia Vaccine Unknown Completed [facility] Moderna COVID-19 Vaccine, Bivalent Moderna COVID-19 Vaccine, Bivalent Unknown Completed [facility] Prevnar 20 (PCV20) Prevnar 20 (PCV20) Unknown Completed [facility] Shingrix Shingrix Unknown Completed [facility] Prevnar 13 -Pneumonia Vaccine Prevnar 13 -Pneumonia Vaccine Unknown Completed [facility] Moderna COVID-19 Vaccine, Bivalent Moderna COVID-19 Vaccine, Bivalent Unknown Completed [facility] Prevnar 20 (PCV20) Prevnar 20 (PCV20) Unknown Completed [facility] Shingrix Shingrix Unknown Completed [facility] Prevnar 13 -Pneumonia Vaccine Prevnar 13 -Pneumonia Vaccine Unknown Completed [facility] Moderna COVID-19 Vaccine, Bivalent Moderna COVID-19 Vaccine, Bivalent Unknown Completed [facility] Prevnar 20 (PCV20) Prevnar 20 (PCV20) Unknown Completed [facility] Shingrix Shingrix Unknown Completed [facility] Prevnar 13 -Pneumonia Vaccine Prevnar 13 -Pneumonia Vaccine Unknown Completed [facility] Moderna COVID-19 Vaccine, Bivalent Moderna COVID-19 Vaccine, Bivalent Unknown Completed [facility] Prevnar 20 (PCV20) Prevnar 20 (PCV20) Unknown Completed [facility] Shingrix Shingrix Unknown Completed [facility] Prevnar 13 -Pneumonia Vaccine Prevnar 13 -Pneumonia Vaccine Unknown Completed [facility] Moderna COVID-19 Vaccine, Bivalent Moderna COVID-19 Vaccine, Bivalent Unknown Completed [facility] Prevnar 20 (PCV20) Prevnar 20 (PCV20) Unknown Completed [facility] Shingrix Shingrix Unknown Completed [facility] Prevnar 13 -Pneumonia Vaccine Prevnar 13 -Pneumonia Vaccine Unknown Completed [facility] Moderna COVID-19 Vaccine, Bivalent Moderna COVID-19 Vaccine, Bivalent Unknown Completed [facility] Prevnar 20 (PCV20) Prevnar 20 (PCV20) Unknown Completed [facility] Shingrix Shingrix Unknown Completed [facility] Prevnar 13 -Pneumonia Vaccine Prevnar 13 -Pneumonia Vaccine Unknown Completed [facility] Vital Signs Vital Name Observation Time Observation Value Comments S ource height 2025-01-25 15:15:00 66.00 [in_i] Com [facility] weight 2025-01-25 15:15:00 195.6 [lb_av] Co [facility] temperature 2025-01-25 15:15:00 98.0 [degF] Com [facility] bmi 2025-01-25 15:15:00 31.57 kg/m2 Comm on [facility] oximetry 2025-01-25 15:15:00 94 % Commo n [facility] blood pressure systolic 2025-01-25 15:15:00 124 mm[Hg] [facility] blood pressure diastolic 2025-01-25 15:15:00 64 mm[Hg] [facility] height 2024-09-20 15:00:00 66.00 [in_i] Com [facility] weight 2024-09-20 15:00:00 199.6 [lb_av] Co [facility] temperature 2024-09-20 15:00:00 97.3 [degF] Com [facility] bmi 2024-09-20 15:00:00 32.21 kg/m2 Comm on [facility] oximetry 2024-09-20 15:00:00 94 % Commo n [facility] respiratory rate 2024-09-20 15:00:00 16 /min [facility] blood pressure systolic 2024-09-20 15:00:00 128 mm[Hg] [facility] blood pressure diastolic 2024-09-20 15:00:00 78 mm[Hg] Common [facility] height 2024-06-22 15:30:00 66.00 [in_i] Com [facility] weight 2024-06-22 15:30:00 198.4 [lb_av] Co [facility] temperature 2024-06-22 15:30:00 97.6 [degF] Com [facility] bmi 2024-06-22 15:30:00 32.02 kg/m2 Comm on [facility] oximetry 2024-06-22 15:30:00 93 % Commo n [facility] respiratory rate 2024-06-22 15:30:00 16 /min [facility] blood pressure systolic 2024-06-22 15:30:00 132 mm[Hg] [facility] blood pressure diastolic 2024-06-22 15:30:00 78 mm[Hg] Common [facility] height 2024-06-05 15:00:00 66.00 [in_i] Com [facility] weight 2024-06-05 15:00:00 200.0 [lb_av] Co [facility] temperature 2024-06-05 15:00:00 97.2 [degF] Com [facility] bmi 2024-06-05 15:00:00 32.28 kg/m2 Comm on [facility] oximetry 2024-06-05 15:00:00 95 % Commo n [facility] respiratory rate 2024-06-05 15:00:00 16 /min Common [facility] blood pressure systolic 2024-06-05 15:00:00 153 mm[Hg] Common [facility] blood pressure diastolic 2024-06-05 15:00:00 70 mm[Hg] [facility] height 2024-04-11 15:00:00 66.00 [in_i] Com [facility] weight 2024-04-11 15:00:00 195 [lb_av] Comm on [facility] temperature 2024-04-11 15:00:00 97.4 [degF] Com [facility] bmi 2024-04-11 15:00:00 31.47 kg/m2 Comm on [facility] blood pressure systolic 2024-04-11 15:00:00 142 mm[Hg] Common [facility] blood pressure diastolic 2024-04-11 15:00:00 68 mm[Hg] Common [facility] height 2024-04-04 15:00:00 66.00 [in_i] Com [facility] weight 2024-04-04 15:00:00 195 [lb_av] Comm on [facility] temperature 2024-04-04 15:00:00 98.4 [degF] Com [facility] bmi 2024-04-04 15:00:00 31.47 kg/m2 Comm on [facility] blood pressure systolic 2024-04-04 15:00:00 130 mm[Hg] [facility] blood pressure diastolic 2024-04-04 15:00:00 80 mm[Hg] [facility] height 2024-03-28 15:00:00 66.00 [in_i] Com [facility] weight 2024-03-28 15:00:00 195 [lb_av] Comm on [facility] temperature 2024-03-28 15:00:00 98.6 [degF] Com [facility] bmi 2024-03-28 15:00:00 31.47 kg/m2 Comm on [facility] blood pressure systolic 2024-03-28 15:00:00 132 mm[Hg] [facility] blood pressure diastolic 2024-03-28 15:00:00 78 mm[Hg] Common [facility] height 2024-02-22 09:20:00 66.00 [in_i] Com [facility] weight 2024-02-22 09:20:00 195.4 [lb_av] Co [facility] temperature 2024-02-22 09:20:00 97.4 [degF] Com [facility] bmi 2024-02-22 09:20:00 31.53 kg/m2 Comm on [facility] oximetry 2024-02-22 09:20:00 97 % Commo n [facility] blood pressure systolic 2024-02-22 09:20:00 132 mm[Hg] [facility] blood pressure diastolic 2024-02-22 09:20:00 74 mm[Hg] Common [facility] height 2024-02-22 09:20:00 66.00 [in_i] Com [facility] weight 2024-02-22 09:20:00 195.4 [lb_av] Co [facility] temperature 2024-02-22 09:20:00 97.4 [degF] Com [facility] bmi 2024-02-22 09:20:00 31.53 kg/m2 Comm on [facility] oximetry 2024-02-22 09:20:00 97 % Commo n [facility] blood pressure systolic 2024-02-22 09:20:00 132 mm[Hg] [facility] blood pressure diastolic 2024-02-22 09:20:00 74 mm[Hg] Common [facility] height 2024-02-22 09:10:00 66.00 [in_i] Com [facility] weight 2024-02-22 09:10:00 195.4 [lb_av] Co mmon [facility] temperature 2024-02-22 09:10:00 97.4 [degF] Com [facility] bmi 2024-02-22 09:10:00 31.53 kg/m2 Comm on [facility] oximetry 2024-02-22 09:10:00 97 % Commo n [facility] blood pressure systolic 2024-02-22 09:10:00 132 mm[Hg] Common [facility] blood pressure diastolic 2024-02-22 09:10:00 74 mm[Hg] Common [facility] height 2024-02-22 13:15:00 66.00 [in_i] Com [facility] weight 2024-02-22 13:15:00 195 [lb_av] Comm on [facility] temperature 2024-02-22 13:15:00 98.0 [degF] Com [facility] bmi 2024-02-22 13:15:00 31.47 kg/m2 Comm on [facility] blood pressure systolic 2024-02-22 13:15:00 130 mm[Hg] Common [facility] blood pressure diastolic 2024-02-22 13:15:00 84 mm[Hg] [facility] height 2023-12-14 09:00:00 66.00 [in_i] Com [facility] weight 2023-12-14 09:00:00 190 [lb_av] Comm on [facility] temperature 2023-12-14 09:00:00 98.5 [degF] Com [facility] bmi 2023-12-14 09:00:00 30.66 kg/m2 Comm on [facility] blood pressure systolic 2023-12-14 09:00:00 130 mm[Hg] [facility] blood pressure diastolic 2023-12-14 09:00:00 78 mm[Hg] Common [facility] height 2023-11-16 09:20:00 66.00 [in_i] Com [facility] weight 2023-11-16 09:20:00 197.4 [lb_av] [facility]-16 09:20:00 98 [degF] Comm on [facility] bmi 2023-11-16 09:20:00 31.86 kg/m2 Comm on [facility] oximetry 2023-11-16 09:20:00 95 % Commo n [facility] blood pressure systolic 2023-11-16 09:20:00 130 mm[Hg] Common [facility] blood pressure diastolic 2023-11-16 09:20:00 72 mm[Hg] Common [facility] height 2023-06-18 08:40:00 66.00 [in_i] Com [facility] weight 2023-06-18 08:40:00 196.6 [lb_av] [facility] 2023-06-18 08:40:00 97.8 [degF] Com [facility] bmi 2023-06-18 08:40:00 31.73 kg/m2 Comm on [facility] oximetry 2023-06-18 08:40:00 97 % Commo n [facility] blood pressure systolic 2023-06-18 08:40:00 130 mm[Hg] [facility] blood pressure diastolic 2023-06-18 08:40:00 70 mm[Hg] Common [facility] height 2023-02-17 09:20:00 66.00 [in_i] Com [facility] weight 2023-02-17 09:20:00 191.0 [lb_av] [facility] 2023-02-17 09:20:00 98.1 [degF] Com [facility] bmi 2023-02-17 09:20:00 30.82 kg/m2 Comm on [facility] oximetry 2023-02-17 09:20:00 94 % Commo n [facility] respiratory rate 2023-02-17 09:20:00 17 /min Common [facility] blood pressure systolic 2023-02-17 09:20:00 136 mm[Hg] Common Spiri t [facility] blood pressure diastolic 2023-02-17 09:20:00 72 mm[Hg] [facility] height 2022-11-17 09:50:00 66.00 [in_i] Com [facility] weight 2022-11-17 09:50:00 196.4 [lb_av] Co [facility] temperature 2022-11-17 09:50:00 97.8 [degF] Com [facility] bmi 2022-11-17 09:50:00 31.7 kg/m2 Commo n [facility] oximetry 2022-11-17 09:50:00 95 % Commo n [facility] respiratory rate 2022-11-17 09:50:00 16 /min [facility] blood pressure systolic 2022-11-17 09:50:00 137 mm[Hg] Common Spiri t [facility] blood pressure diastolic 2022-11-17 09:50:00 68 mm[Hg] [facility] height 2022-11-17 10:00:00 66.00 [in_i] Com [facility] weight 2022-11-17 10:00:00 196.4 [lb_av] Co [facility] temperature 2022-11-17 10:00:00 97.8 [degF] Com [facility] bmi 2022-11-17 10:00:00 31.7 kg/m2 Commo n [facility] oximetry 2022-11-17 10:00:00 95 % Commo n [facility] respiratory rate 2022-11-17 10:00:00 16 /min [facility] blood pressure systolic 2022-11-17 10:00:00 137 mm[Hg] [facility] blood pressure diastolic 2022-11-17 10:00:00 68 mm[Hg] [facility] height 2022-08-17 09:00:00 66.00 [in_i] Com [facility] weight 2022-08-17 09:00:00 193.4 [lb_av] Co [facility] temperature 2022-08-17 09:00:00 97.2 [degF] Com [facility] bmi 2022-08-17 09:00:00 31.21 kg/m2 Comm on [facility] oximetry 2022-08-17 09:00:00 97 % Commo n [facility] respiratory rate 2022-08-17 09:00:00 17 /min [facility] blood pressure systolic 2022-08-17 09:00:00 117 mm[Hg] [facility] blood pressure diastolic 2022-08-17 09:00:00 61 mm[Hg] [facility] Encounters Start Date/Time End Date/Time Encounter Type Admission Type Attending Clinicians Care Facility Care Department Encounter ID Source 2024-06-05 07:53[facility] [id number] [facility] 2024-02-24 12:26:00 [facility] [id number] [facility] 2024-02-21 10:50:00 [facility] [id number] [facility] 2023-12-14 08:53:00 Outpatient Hawk, Elvis [facility] [id number] [facility] 2023-11-18 15:43:00 Outpatient Hawk, Elvis [facility] [id number] [facility] 2023-11-15 09:44:00 Outpatient Hawk, Elvis [facility] [id number] [facility] 2023-06-22 17:01:00 Outpatient Hawk, Elvis [facility] [id number] [facility] 2023-02-17 09:09:00 Outpatient Hawk, Elvis [facility] [id number] [facility] 2022-08-05 09:33:00 Outpatient Hawk, Elvis [facility] [id number] [facility] 2022-05-28 16:11:00 Outpatient ORTEGA, Na [facility] [id number] [facility] 2021-10-30 15:29:00 Outpatient Ortega, Na [facility] [id number] [facility] 2021-06-25 14:39:16 Outpatient Ortega, Na [facility] [id number] [facility] 2021-06-25 13:26:23 Outpatient Ortega, Na [facility] [id number] [facility] 2021-06-25 12:46:19 Outpatient Ortega, Na [facility] [id number] [facility] 2021-06-25 12:45:14 Outpatient Ortega, Na [facility] [id number] [facility] 2021-06-25 12:44:48 Outpatient Ortega, Na [facility] [id number] [facility] 2021-06-25 12:42:24 Outpatient Ortega, Na [facility] [id number] [facility] 2021-06-25 12:33:38 Outpatient Ortega, Na [facility] [id number] [facility] 2021-06-25 12:32:40 Outpatient Ortega, Na [facility] [id number] [facility] 2021-06-25 12:32:07 Outpatient Ortega, Na [facility] [id number] [facility] 2021-06-25 12:25:42 Outpatient Ortega, Na [facility] [id number] [facility] 2021-06-25 12:11:27 Outpatient Ortega, Na [facility] [id number] [facility] 2021-06-25 11:50:19 Outpatient Ortega, Na [facility] [id number] [facility] 2021-06-25 11:49:34 Outpatient Ortega, Na [facility] [id number] [facility] 2021-06-25 11:49:06 Outpatient Ortega, Na [facility] [id number] [facility] 2021-06-25 11:12:13 Outpatient Ortega, Na [facility] [id number] [facility] 2021-06-25 11:02:24 Outpatient Ortega, Na [facility] [id number] [facility] 2021-06-25 11:01:59 Outpatient Ortega, Na [facility] [id number] [facility] 2025-01-25 00:00:00 2025-01-25 00:00:00 OFFICE VISIT ESTAB PT LEVEL 4 [facility] [id number] [facility] 2025-01-01 00:00:00 2025-01-01 00:00:00 (TEL) [facility] [id number] [facility] 2024-09-20 00:00:00 2024-09-20 00:00:00 OFFICE VISIT ESTAB PT LEVEL 4 [facility] [id number] [facility] 2024-06-22 00:00:00 2024-06-22 00:00:00 OFFICE VISIT ESTAB PT LEVEL 4 [facility] [id number] [facility] 2024-06-05 00:00:00 2024-06-05 00:00:00 OFFICE VISIT ESTAB PT LEVEL 5 [facility] [id number] [facility] 2024-05-09 16:00:00 2024-05-09 16:00:00 Outpatient JANETT BOONE [id number] [facility] Fonseca 2024-05-05 00:00:00 2024-05-05 00:00:00 (TEL) [facility] [id number] [facility] 2024-04-11 00:00:00 2024-04-11 00:00:00 (IN/ASP) INJ ASP [facility] [id number] [facility] 2024-04-04 00:00:00 2024-04-04 00:00:00 (IN/ASP) INJ ASP [facility] [id number] [facility] 2024-03-28 00:00:00 2024-03-28 00:00:00 (F/U) Follow Up Visit [facility] [id number] [facility] 2024-02-22 00:00:00 2024-02-22 00:00:00 OFFICE VISIT ESTAB PT LEVEL 4 [facility] [id number] [facility] 2024-02-22 00:00:00 2024-02-22 00:00:00 SUB ANNUAL MCR WELLNESS VISIT [facility] [id number] [facility] 2024-02-22 00:00:00 2024-02-22 00:00:00 OFFICE VISIT ESTAB PT LEVEL 4 [facility] [id number] [facility] 2024-02-22 00:00:00 2024-02-22 00:00:00 (TEL) [facility] STLMLC [id number] [facility] 2023-12-27 00:00:00 2023-12-27 00:00:00 (TEL) STLMLC STLMLC [id number] [facility] 2023-12-14 00:00:00 2023-12-14 00:00:00 OFFICE VISIT NEW PT LEVEL 4 STLMLC STLMLC [id number] [facility] 2023-11-16 00:00:00 2023-11-16 00:00:00 OFFICE VISIT ESTAB PT LEVEL 4 [facility]C STLMLC [id number] [facility] 2023-06-22 00:00:00 2023-06-22 00:00:00 (TEL) STLMLC STLMLC [id number] [facility] 2023-06-18 00:00:00 2023-06-18 00:00:00 OFFICE VISIT ESTAB PT LEVEL 4 [facility]LMLC STLMLC [id number] [facility] 2023-02-17 00:00:00 2023-02-17 00:00:00 OFFICE VISIT ESTAB PT LEVEL 3 [facility]LMLC STLMLC [id number] [facility] 2022-11-17 00:00:00 2022-11-17 00:00:00 OFFICE VISIT ESTAB PT LEVEL 4 [facility]C STLMLC [id number] [facility] 2022-11-17 00:00:00 2022-11-17 00:00:00 SUB ANNUAL MCR WELLNESS VISIT STLMLC STLMLC [id number] [facility] 2022-09-29 00:00:00 2022-09-29 00:00:00 (TEL) STLMLC STLMLC [id number] [facility] 2022-09-08 00:00:00 2022-09-08 00:00:00 (TEL) STLMLC STLMLC [id number] [facility] 2022-08-17 00:00:00 2022-08-17 00:00:00 OFFICE VISIT ESTAB PT LEVEL 4 [facility] STLMLC [id number] [facility] 2022-08-05 00:00:00 2022-08-05 00:00:00 (TEL) STLMLC STLMLC [id number] [facility] 2022-07-31 00:00:00 2022-07-31 00:00:00 (TEL) STLMLC STLMLC [id number] [facility] 2022-06-22 00:00:00 2022-06-22 00:00:00 (TEL) STLMLC STLMLC [id number] [facility] 2022-04-14 00:00:00 2022-04-14 00:00:00 (TEL) STLMLC STLMLC [id number] [facility] 2022-02-05 00:00:00 2022-02-05 00:00:00 OL DIG E/M SVC 11-20 MIN STLMLC STLMLC [id number] [facility] 2021-11-03 00:00:00 2021-11-03 00:00:00 OL DIG E/M SVC 11-20 MIN STLMLC STLMLC [id number] [facility] 2021-10-13 00:00:00 2021-10-13 00:00:00 (TEL) STLMLC STLMLC [id number] [facility] 2021-09-30 00:00:00 2021-09-30 00:00:00 (TEL) STLMLC STLMLC [id number] [facility] 2021-07-16 00:00:00 2021-07-16 00:00:00 (TEL) STLMLC STLMLC [id number] [facility] 2021-04-21 00:00:00 2021-04-21 00:00:00 (TEL) STLMLC STLMLC [id number] [facility] 2020-12-18 00:00:00 2020-12-18 00:00:00 Outpatient [facility]LMLC STLMLC [id number] [facility] 2020-12-05 00:00:00 2020-12-05 00:00:00 Outpatient [facility]C STL[facility]C [id number] [facility] 2020-08-26 00:00:00 2020-08-26 00:00:00 Outpatient [facility]C STLMLC [id number] [facility] 2020-07-25 00:00:00 2020-07-25 00:00:00 Outpatient [facility]C STLMLC [id number] [facility] 2020-07-19 00:00:00 2020-07-19 00:00:00 Outpatient [facility]C STLMLC [id number] [facility] 2020-06-25 00:00:00 2020-06-25 00:00:00 Outpatient STLMLC STLMLC [id number] [facility] 2020-02-28 00:00:00 2020-02-28 00:00:00 Outpatient STLMLC STLMLC [id number] [facility] 2020-02-27 00:00:00 2020-02-27 00:00:00 Outpatient STLMLC STLMLC [id number] [facility] 2019-11-06 08:40:00 2019-11-06 08:40:[address] [facility] [id number] [facility] 2019-08-04 10:00:00 2019-08-04 10:00:[address] [facility] [id number] [facility] 2019-08-04 09:00:00 2019-08-04 09:00:[address] [facility] [id number] [facility] 2019-06-23 10:59:00 2019-06-23 10:59:00 [facility] [id number] [facility] 2019-06-22 13:20:00 2019-06-22 13:20:00 [facility] [id number] [facility] 2018-12-19 08:03:00 2018-12-19 08:03:00 [facility] [id number] [facility] 2018-12-05 08:00:00 2018-12-05 08:00:00 [facility] [id number] [facility] 2018-08-10 10:15:00 2018-08-10 10:15:00 [facility] [id number] [facility] 2018-04-11 11:00:00 2018-04-11 11:00:00 [facility] [id number] [facility] 2017-10-26 09:15:00 2017-10-26 09:15:00 [facility] [id number] [facility] Results Test Description Test Time Test Comments Results Result Co mments Source COMPREHENSIVE METABOLIC [id number] 00:00:00* Test Item Value Reference Range Interpretation Comme nts NUCLEATED RBCS (test code = 53191-8) 0.0 /100 WBC'S See_Comment [Automated message] The system which generated this result transmitted reference range: 0.0 /100 WBC'S. The reference range was not used to interpret this result as normal/abnormal. ABSOLUTE EOSINOPHILS (test code = 82668-4) 0.28 K/UL See_Comment [Automated message] The system which generated this result transmitted reference range: 0.00-0.50 K/UL. The reference range was not used to interpret this result as normal/abnormal. ABSOLUTE LYMPHOCYTES (test code = 15827-3) 2.89 K/UL See_Comment [Automated message] The system which generated this result transmitted reference range: 1.00-4.00 K/UL. The reference range was not used to interpret this result as normal/abnormal. ABSOLUTE MONOCYTES (test code = 20496-6) 0.77 K/UL See_Comment [Automated message] The system which generated this result transmitted reference range: 0.20-1.00 K/UL. The reference range was not used to interpret this result as normal/abnormal. ABSOLUTE NEUTROPHILS (test code = 67639-9) 4.62 K/UL See_Comment [Automated message] The system which generated this result transmitted reference range: 1.50-7.50 K/UL. The reference range was not used to interpret this result as normal/abnormal. BASOPHILS (test code = 22125-4) 0.7 % EOSINOPHILS (test code = 80511-9) 3.2 % HEMATOCRIT (test code = 13646-3) 44.5 % See_Comment [Automated messa ge] The system which generated this result transmitted reference range: 34.0-45.0 %. The reference range was not used to interpret this result as normal/abnormal. HEMOGLOBIN (test code = 718-7) 14.7 G/DL See_Comment [Automated messa ge] The system which generated this result transmitted reference range: 11.5-15.5 G/DL. The reference range was not used to interpret this result as normal/abnormal. LYMPHOCYTES (test code = 67700-4) 33.4 % MCH (test code = 10211-9) 30.9 PG See_Comment [Automated messa ge] The system which generated this result transmitted reference range: 25.0-33.0 PG. The reference range was not used to interpret this result as normal/abnormal. MCHC (test code = 20788-2) 33.0 G/DL See_Comment [Automated messa ge] The system which generated this result transmitted reference range: 31.0-36.0 G/DL. The reference range was not used to interpret this result as normal/abnormal. MCV (test code = 68395-4) 93.7 fL See_Comment [Automated messa ge] The system which generated this result transmitted reference range: 80.0-99.0 fL. The reference range was not used to interpret this result as normal/abnormal. MONOCYTES (test code = 86092-0) 8.9 % NEUTROPHILS (test code = 05643-2) 53.6 % PLATELET COUNT (test code = 81945-9) 315 K/UL See_Comment [Automated [facility]] The system which generated this result transmitted reference range: 130-400 K/UL. The reference range was not used to interpret this result as normal/abnormal. RBC (test code = 23316-2) 4.75 M/UL See_Comment [Automated [facility]] The system which generated this result transmitted reference range: 3.80-5.40 M/UL. The reference range was not used to interpret this result as normal/abnormal. RDW (test code = 57011-5) 12.0 % See_Comment [Automated [facility]] The system which generated this result transmitted reference range: 11.5-15.0 %. The reference range was not used to interpret this result as normal/abnormal. WBC (test code = 51932-3) 8.6 K/UL See_Comment [Automated [facility]] The system which generated this result transmitted reference range: 3.5-11.0 K/UL. The reference range was not used to interpret this result as normal/abnormal. HEMOGLOBIN A1c (test code = 4548-4) 6.0 % See_Comment H [Automated [facility]] The system which generated this result transmitted reference range: 4.2-5.6 %. The reference range was not used to interpret this result as normal/abnormal. TSH REFLEX TO FREE T4 (test code = 70751-4) 0.688 UIU/ML See_Comment [Automated message] The system which generated this result transmitted reference range: 0.400-4.100 UIU/ML. The reference range was not used to interpret this result as normal/abnormal. CALC LDL CHOL (test code = 71892-9) 124 MG/DL See_Comment H [Automated [facility]] The system which generated this result transmitted reference range: <100 MG/DL. The reference range was not used to interpret this result as normal/abnormal. CHOLESTEROL (test code = 2093-3) 197 MG/DL See_Comment [Automated [facility]] The system which generated this result transmitted reference range: <200 MG/DL. The reference range was not used to interpret this result as normal/abnormal. HDL CHOLESTEROL (test code = 2085-9) 48 MG/DL See_Comment [Automated messa ge] The system which generated this result transmitted reference range: >39 MG/DL. The reference range was not used to interpret this result as normal/abnormal. RISK RATIO LDL/HDL (test code = 09733-8) 2.58 RATIO See_Comment [Automated message] The system which generated this result transmitted reference range: <3.22 RATIO. The reference range was not used to interpret this result as normal/abnormal. TRIGLYCERIDES (test code = 2571-8) 132 MG/DL See_Comment [Automated messa ge] The system which generated this result transmitted reference range: <150 MG/DL. The reference range was not used to interpret this result as normal/abnormal. ALBUMIN (test code = 1751-7) 4.1 G/DL See_Comment [Automated [facility]] The system which generated this result transmitted reference range: 3.5-5.2 G/DL. The reference range was not used to interpret this result as normal/abnormal. ALKALINE PHOSPHATASE (test code = 6768-6) 83 U/L See_Comment [Automated message] The system which generated this result transmitted reference range: 40-142 U/L. The reference range was not used to interpret this result as normal/abnormal. BILIRUBIN, TOTAL (test code = 1975-2) 0.3 MG/DL See_Comment [Automated messa ge] The system which generated this result transmitted reference range: <=1.2 MG/DL. The reference range was not used to interpret this result as normal/abnormal. BUN (test code = 3094-0) 16 MG/DL See_Comment [Automated [facility]] The system which generated this result transmitted reference range: 8-23 MG/DL. The reference range was not used to interpret this result as normal/abnormal. CALCIUM (test code = 26970-5) 8.9 MG/DL See_Comment [Automated [facility]] The system which generated this result transmitted reference range: 8.5-10.5 MG/DL. The reference range was not used to interpret this result as normal/abnormal. CALC A/G RATIO (test code = 1759-0) 2.0 RATIO See_Comment [Automated messa ge] The system which generated this result transmitted reference range: 1.0-2.6 RATIO. The reference range was not used to interpret this result as normal/abnormal. CALC BUN/CREAT (test code = 3097-3) 20 RATIO See_Comment [Automated messa ge] The system which generated this result transmitted reference range: 6-28 RATIO. The reference range was not used to interpret this result as normal/abnormal. CALC GLOBULIN (test code = 36388-7) 2.1 G/DL See_Comment [Automated messa ge] The system which generated this result transmitted reference range: 1.9-3.7 G/DL. The reference range was not used to interpret this result as normal/abnormal. CARBON DIOXIDE (test code = 1963-8) 24 MEQ/L See_Comment [Automated messa ge] The system which generated this result transmitted reference range: 19-31 MEQ/L. The reference range was not used to interpret this result as normal/abnormal. CHLORIDE (test code = 2075-0) 106 MEQ/L See_Comment [Automated messa ge] The system which generated this result transmitted reference range: 95-107 MEQ/L. The reference range was not used to interpret this result as normal/abnormal. CREATININE (test code = 2160-0) 0.80 MG/DL See_Comment [Automated messa ge] The system which generated this result transmitted reference range: 0.60-1.30 MG/DL. The reference range was not used to interpret this result as normal/abnormal. eGFR (2020 CKD-EPI) (test code = 63278-8) 77 ML/MIN/1.73 See_Comment [Automated message] The system which generated this result transmitted reference range: >60 ML/MIN/1.73. The reference range was not used to interpret this result as normal/abnormal. GLUCOSE (test code = 1558-6) 105 MG/DL See_Comment H [Automated messa ge] The system which generated this result transmitted reference range: 70-99 MG/DL. The reference range was not used to interpret this result as normal/abnormal. POTASSIUM (test code = 2823-3) 4.5 MEQ/L See_Comment [Automated messa ge] The system which generated this result transmitted reference range: 3.5-5.4 MEQ/L. The reference range was not used to interpret this result as normal/abnormal. PROTEIN, TOTAL (test code = 2885-2) 6.2 G/DL See_Comment [Automated messa ge] The system which generated this result transmitted reference range: 6.1-8.3 G/DL. The reference range was not used to interpret this result as normal/abnormal. AST (test code = 1920-8) 18 U/L See_Comment [Automated messa ge] The system which generated this result transmitted reference range: 9-40 U/L. The reference range was not used to interpret this result as normal/abnormal. ALT (test code = 1742-6) 17 U/L See_Comment [Automated messa ge] The system which generated this result transmitted reference range: 5-40 U/L. The reference range was not used to interpret this result as normal/abnormal. SODIUM (test code = 2951-2) 142 MEQ/L See_Comment [Automated messa ge] The system which generated this result transmitted reference range: 133-146 MEQ/L. The reference range was not used to interpret this result as normal/abnormal. CBC W/AUTO [id number] 00:00:00* Test Item Value Reference Range Interpretation Comme nts NUCLEATED RBCS (test code = 17612-6) 0.0 /100 WBC'S See_Comment [Automated messa ge] The system which generated this result transmitted reference range: 0.0 /100 WBC'S. The reference range was not used to interpret this result as normal/abnormal. ABSOLUTE EOSINOPHILS (test code = 53286-7) 0.40 K/UL See_Comment [Automated messa ge] The system which generated this result transmitted reference range: 0.00-0.50 K/UL. The reference range was not used to interpret this result as normal/abnormal. ABSOLUTE LYMPHOCYTES (test code = 73444-6) 2.86 K/UL See_Comment [Automated messa ge] The system which generated this result transmitted reference range: 1.00-4.00 K/UL. The reference range was not used to interpret this result as normal/abnormal. ABSOLUTE MONOCYTES (test code = 78496-4) 0.76 K/UL See_Comment [Automated messa ge] The system which generated this result transmitted reference range: 0.20-1.00 K/UL. The reference range was not used to interpret this result as normal/abnormal. ABSOLUTE NEUTROPHILS (test code = 01045-1) 5.04 K/UL See_Comment [Automated messa ge] The system which generated this result transmitted reference range: 1.50-7.50 K/UL. The reference range was not used to interpret this result as normal/abnormal. BASOPHILS (test code = 06388-1) 1.0 % EOSINOPHILS (test code = 83479-0) 4.4 % HEMATOCRIT (test code = 30333-6) 47.0 % See_Comment H [Automated messa ge] [...] result as normal/abnormal. LYMPHOCYTES (test code = 65267-4) 31.1 % MCH (test code = 56926-5) 28.9 PG See_Comment [Automated messa ge] The system which generated this result transmitted reference range: 25.0-33.0 PG. The reference range was not used to interpret this result as normal/abnormal. MCHC (test code = 61351-7) 32.6 G/DL See_Comment [Automated messa ge] The system which generated this result transmitted reference range: 31.0-36.0 G/DL. The reference range was not used to interpret this result as normal/abnormal. MCV (test code = 14485-6) 88.7 fL See_Comment [Automated messa ge] The system which generated this result transmitted reference range: 80.0-99.0 fL. The reference range was not used to interpret this result as normal/abnormal. MONOCYTES (test code = 56589-2) 8.3 % NEUTROPHILS (test code = 72446-1) 54.8 % PLATELET COUNT (test code = 26485-5) 325 K/UL See_Comment [Automated messa ge] The system which generated this result transmitted reference range: 130-400 K/UL. The reference range was not used to interpret this result as normal/abnormal. RBC (test code = 09988-9) 5.30 M/UL See_Comment [Automated [facility]] The system which generated this result transmitted reference range: 3.80-5.40 M/UL. The reference range was not used to interpret this result as normal/abnormal. RDW (test code = 37435-7) 13.1 % See_Comment [Automated [facility]] The system which generated this result transmitted reference range: 11.5-15.0 %. The reference range was not used to interpret this result as normal/abnormal. WBC (test code = 44243-7) 9.2 K/UL See_Comment [Automated messa ge] The system which generated this result transmitted reference range: 3.5-11.0 K/UL. The reference range was not used to interpret this result as normal/abnormal.
[2025-02-17 07:50] LABS: Influenza A Ag Negative; Influenza B Ag Negative; SARS-CoV-2 Antigen Rapid Res Negative (Negative)
--- NOTE | 2025-02-17 09:10 | RAD REPORT ---
EXAMINATION: TWO VIEW CHEST XR CLINICAL INDICATION: COUGH TECHNIQUE: 2 views of the chest was performed. COMPARISON: 05/18/2023 FINDINGS: Nonspecific peribronchial thickening without focal consolidation could represent a viral infection or reactive airway disease. The heart is upper limit of normal in size. No displaced fractures evident.
--- NOTE | 2025-02-17 09:19 | EDPHYS ---
Physician Documentation [facility] Name: Ismael Weinberg Age: 74 yrs Sex: Female : 1950 Arrival Date: 02/17/2025 Time: 06:40 Bed 7 Private MD: ED Physician Brent Armenta HPI: 02/17 07:36 This 74 yrs old Female presents to ER via Ambulatory with complaints of Cough. rn 07:36 Patient reports cough for 3 days. No shortness of breath. No chest pain. No fever [employer] chills.. Historical: - Allergies: 06:55 No Known Allergies; ha1 - PMHx: 06:55 Hypertension; Hypothyroidism; ha1 - PSHx: 06:55 section; Cholecystectomy; ha1 - Immunization history:: Adult Immunizations up to date, Flu vaccine is not up to date. - Infectious Disease History:: Denies. - Social history:: Smoking status: Patient denies any tobacco usage or history of. - Family history:: not pertinent. - Hospitalizations: : No recent hospitalization is reported. ROS: 07:36 Constitutional: Negative for fever, chills, and weight loss, Eyes: Negative for injury, rn pain, redness, and discharge, ENT: Negative for injury, pain, and discharge, Neck: Negative for injury, pain, and swelling, Cardiovascular: Negative for palpitations, and edema, chest pain only present during coughing episodes Respiratory: Positive for cough, negative for shortness of breath. No hemoptysis. Patient reports chest pain during episodes of cough. Abdomen/GI: Negative for abdominal pain, nausea, vomiting, diarrhea, and constipation, Back: Negative for injury and pain, MS/Extremity: Negative for injury and deformity, Skin: Negative for injury, rash, and discoloration, Neuro: Negative for headache, weakness, numbness, tingling, and seizure, Exam: 07:36 Constitutional: This is a well developed, well nourished patient who is awake, alert, rn and in no acute distress. Head/Face: Normocephalic, atraumatic. ENT: No stridor Cardiovascular: Bradycardic, regular. No pulse deficits. Respiratory: Clear bilateral breath sounds. Speaking full sentences, unlabored. Skin: No cyanosis MS/ Extremity: Pulses equal, no cyanosis. Neurovascular intact. Full, normal range of motion. Equal circumference. Neuro: Awake and alert, GCS 15 Vital Signs: 06:45 BP 135 / 57; Pulse 57; Resp 18 S; Temp 98.3(O); Pulse Ox 96% on R/A; Weight 88 kg; ha1 Height 5 ft. 5 in. ; 07:10 BP 112 / 59; Pulse 54; Resp 18; Temp 98.2(O); Pulse Ox 97% on R/A; nh2 08:07 BP 125 / 97; Pulse 63; Resp 17; Pulse Ox 94% on R/A; nh2 09:03 BP 118 / 64; Pulse 53; Resp 17; Pulse Ox 96% on R/A; nh2 06:45 Body Mass Index 32.28 (88.00 kg, 165.1 cm) ha1 MDM: 06:56 Medical Screening Exam initiated rn 08:03 Independent interpretation of the following test(s) in the Emergency Department X-Ray: rn My interpretation is Chest x-ray images show bilateral perihilar infiltrate/prominence per my interpretation. Negative for pneumonia or pneumothorax per my interpretation.. 09:18 Differential Diagnosis: Bronchitis Influenza Upper Respiratory Infection Viral Syndrome rn Pneumonia. Data reviewed: vital signs, nurses notes, lab test result(s), radiologic studies, plain films, and as a result, I will discharge patient. Care significantly affected by the following chronic conditions: Hypertension. Counseling: I had a detailed discussion with the patient and/or guardian regarding the historical points, exam findings, and any diagnostic results supporting the discharge/admit diagnosis, lab results, radiology results, the need for outpatient follow up, to return to the emergency department if symptoms worsen or persist or if there are any questions or concerns that arise at home. Response to treatment: the patient's symptoms have mildly improved after treatment, and as a result, I will discharge patient. Special discussion: I discussed with the patient/guardian in detail that at this point there is no indication for admission to the hospital. It is understood, however, that if the symptoms persist or worsen the patient needs to return immediately for re-evaluation. 02/17 07:00 Order name: COVID-19 Ag + Flu A+B Ag; Complete Time: 07:50 rn 02/17 07:00 Order name: Group A Streptococcus Rapid; Complete Time: 07:50 rn 02/17 07:52 Order name: Throat Culture [facility] 02/17 07:00 Order name: XRAY Chest Pa And Lat (2 Views); Complete Time: 09:13 rn Administered Medications: 09:28 Drug: AZITHromycin PO 500 mg PO once Route: PO; nh2 09:33 Follow up: Response: Medication administered at discharge. nh2 Disposition Summary: 02/17/25 09:19 Discharge Ordered Notes: Location: Home rn Problem: new rn Symptoms: have improved rn Condition: Stable rn Diagnosis - Cough rn - Unspecified acute lower respiratory infection rn Followup: rn - With: Private Physician - When: As needed - Reason: Recheck today's complaints, Re-evaluation by your physician Discharge Instructions: - Discharge Summary Sheet rn - Cough, Adult rn Forms: - Medication Reconciliation Form rn - Antibiotic freelance patternmaker - Prescription Opioid Use rn - Patient Portal Instructions rn - Leadership Thank You Letter rn - Work release form [facility] Prescriptions: - Zithromax Z-Zeferino 250 mg Oral Tablet - take 1 tablet ORAL route as directed for 5 days Day 1 - take two (2) tablets rn one time. Day 2, 3, 4 , 5 take one (1) tablet once daily.; 6 tablet; Refills: 0, Product Selection Permitted - Prednisone 20 mg Oral Tablet - take 2 tablets ORAL route once daily for 5 days; 10 tablet; Refills: 0, Product rn Selection Permitted Signatures: Dispatcher [employer] Brent Baugh MD MD rn Ayala, Heidy RN RN ha1 Leobardo Menon Jr, RN RN nh2
--- NOTE | 2025-02-17 09:19 | ER ---
Nurse's Notes [facility] Name: Ismael Weinberg Age: 74 yrs Sex: Female : 1950 Arrival Date: 02/17/2025 Time: 06:40 Bed 7 Private MD: Diagnosis: Cough;Unspecified acute lower respiratory infection Presentation: 02/17 06:45 Chief complaint: Patient states: PERSISTENT COUGH FOR THE PAST THREE DAYS. CHEST PAIN ha1 WHEN COUGHING. 06:45 Coronavirus screen: Client denies travel out of the [place] in the last 14 days. Ebola ha1 Screen: No symptoms or risks identified at this time. Initial Sepsis Screen: Does the patient meet any 2 criteria? No. Patient's initial sepsis screen is negative. Does the patient have a suspected source of infection? No. Patient's initial sepsis screen is negative. Risk Assessment: Do you want to hurt yourself or someone else? Patient reports no desire to harm self or others. Onset of symptoms was February 17, 2025. 06:45 Method Of Arrival: Ambulatory ha1 06:45 Acuity: JEROME 3 ha1 Triage Assessment: 06:55 General: Appears uncomfortable, Behavior is calm, cooperative. Pain: Complains of pain ha1 in CHEST PAIN WHEN COUGHING. Neuro: Level of Consciousness is awake, alert, obeys commands, Oriented to person, place, time, situation. Cardiovascular: Capillary refill Patient's skin is warm and dry. Respiratory: Reports cough that is non-productive, hacking, persistent Airway is patent Respiratory effort is even, unlabored, Respiratory pattern is regular, symmetrical. Historical: - Allergies: 06:55 No Known Allergies; ha1 - PMHx: 06:55 Hypertension; Hypothyroidism; ha1 - PSHx: 06:55 section; Cholecystectomy; ha1 - Immunization history:: Adult Immunizations up to date, Flu vaccine is not up to date. - Infectious Disease History:: Denies. - Social history:: Smoking status: Patient denies any tobacco usage or history of. - Family history:: not pertinent. - Hospitalizations: : No recent hospitalization is reported. Screenin:[address] [facility] ED Fall Risk Assessment (Adult) History of falling in the last 3 months, nh2 including since admission No falls in past 3 months (0 pts) Confusion or Disorientation No (0 pts) Intoxicated or Sedated No (0 pts) Impaired Gait No (0 pts) Mobility Assist Device Used No (0 pt) Altered Elimination No (0 pt) Score/Fall Risk Level 0 - 2 = Low Risk Oriented to surroundings, Maintained a safe environment, Educated pt \T\ family on fall prevention, incl call for assistance when getting out of bed, Assessed \T\ reinforced patient's understanding of fall precautions. Abuse screen: Denies threats or abuse. Denies injuries from another. Nutritional screening: No deficits noted. Tuberculosis screening: No symptoms or risk factors identified. Assessment: 07:10 General: Appears uncomfortable, Behavior is calm, cooperative, appropriate for age, nh2 Reports chills for 2-3 days, feeling ill for fatigue for. Pain: Denies pain. Neuro: Level of Consciousness is awake, alert, obeys commands, Oriented to person, place, time, situation, Appropriate for age Reports dizziness, Denies headache. Cardiovascular: Reports chest pain when coughing Patient's skin is warm and dry. Respiratory: Reports cough that is productive, since 02/15/2025 Airway is patent Trachea midline Respiratory effort is even, unlabored, Respiratory pattern is regular, symmetrical, Breath sounds are clear bilaterally. Parent/caregiver reports the patient having shortness of breath when laying flat. GI: Abdomen is round non-distended, Patient currently denies nausea, vomiting. : No signs and/or symptoms were reported regarding the genitourinary system. Denies burning with urination. EENT: Reports sore throat. Derm: Skin is intact, Skin is dry, Skin is pink, warm \T\ dry. Skin temperature is warm. Musculoskeletal: Circulation, motion, and sensation intact. Range of motion: intact in all extremities. 08:11 Reassessment: Patient and/or family updated on plan of care and expected duration. Pain nh2 level reassessed. Patient is alert, oriented x 3, equal unlabored respirations, skin warm/dry/pink. Patient denies pain at this time. 09:04 Reassessment: Patient and/or family updated on plan of care and expected duration. Pain nh2 level reassessed. Patient is alert, oriented x 3, equal unlabored respirations, skin warm/dry/pink. Patient denies pain at this time. Vital Signs: 06:45 BP 135 / 57; Pulse 57; Resp 18 S; Temp 98.3(O); Pulse Ox 96% on R/A; Weight 88 kg; ha1 Height 5 ft. 5 in. ; 07:10 BP 112 / 59; Pulse 54; Resp 18; Temp 98.2(O); Pulse Ox 97% on R/A; nh2 08:07 BP 125 / 97; Pulse 63; Resp 17; Pulse Ox 94% on R/A; nh2 09:03 BP 118 / 64; Pulse 53; Resp 17; Pulse Ox 96% on R/A; nh2 06:45 Body Mass Index 32.28 (88.00 kg, 165.1 cm) ha1 ED Course: 06:42 Patient arrived in ED. mr 06:55 Triage completed. ha1 06:56 Brent Armenta MD is Attending Physician. rn 07:05 Leobardo Menon Jr, RN is Primary Nurse. nh2 07:15 COVID swab sent to lab. Flu and/or RSV swab sent to lab. Strep swab sent to lab. nh2 07:19 Patient has correct armband on for positive identification. Bed in low position. Call nh2 light in reach. Side rails up X 1. Provided Education on: using call light for assistance. 07:20 Arm band placed on right wrist. nh2 07:22 Group A Streptococcus Rapid Sent. nh2 07:22 COVID-19 Ag + Flu A+B Ag Sent. nh2 07:57 XRAY Chest Pa And Lat (2 Views) In Process Unspecified. EDMS 08:21 Throat Culture Sent. nh2 09:33 No provider procedures requiring assistance completed. Patient did not have IV access nh2 during this emergency room visit. Administered Medications: 09:28 Drug: AZITHromycin PO 500 mg PO once Route: PO; nh2 09:33 Follow up: Response: Medication administered at discharge. nh2 Medication: 09:33 VIS not applicable for this client. nh2 Outcome: 09:19 Discharge ordered by . rn 09:34 Discharged to home ambulatory, with family, nh2 09:34 Condition: stable 09:34 Discharge instructions given to patient, family, Instructed on discharge instructions, follow up and referral plans. medication usage, Demonstrated understanding of instructions, follow-up care, medications, Prescriptions given X 2, 09:34 Patient left the ED. nh2 Signatures: Dispatcher [employer] [facility] Veronica Gusman, Reg Reg mr Brent Armenta MD MD rn Maricel Henderson, RN RN ha1 Sinan Jr, Leobardo, RN RN nh2 Corrections: (The following items were deleted from the chart) 07:10 General: Appears uncomfortable, Behavior is calm, cooperative, appropriate for nh2 age, Reports chills for 2-3 days, feeling ill for fatigue for nh2 : 07:10 EENT: No signs and/or symptoms were reported regarding the EENT system. nh2 nh2 07:10 GI: Abdomen is round non-distended, Patient currently denies pain, vomiting, nh2 nh2
[2025-02-17] MEDS ORDERED: AZITHROMYCIN 250 MG TAB ONE (09:23)
[2025-02-17 09:40] VITALS: TEMP 98.2
[2025-02-17 09:44] VITALS: BP 118/64; O2SAT 96
== END 2025-02-17 09:34 | disposition home or self-care (01) ==
LOC: ER 06:40
DX: J22 Unspecified acute lower respiratory infection (principal); R05.9 Cough, unspecified; I10 Essential (primary) hypertension; Z11.52 Encounter for screening for COVID-19
CPT/HCPCS: 36415; 71046; 87070; 87428; 99284